=== PATIENT | female | born 1965 | race American Indian/Alaskan Native ===

== ENCOUNTER 2016-10-30 21:20 | Inpatient (IN) | payer MEDICARE ==
[2016-10-30 23:27] LABS: Basophils % (Auto) 0.3 % (0.0-1.8); Hematocrit 32.6 % (30.3-42.9); Hemoglobin 10.2 gm/dl (10.1-14.3); Mean Corpuscular HGB Conc 31 % (30-34); Mean Corpuscular Volume 78 fl (79-97); Platelet Count 331 K/mm3 (140-440); Red Blood Count 4.18 M/mm3 (3.65-5.03); Red Cell Distribution Width 17.1 % (13.2-15.2); White Blood Count 10.4 K/mm3 (4.5-11.0)
[2016-10-30 23:34] LABS: Mean Corpuscular Hemoglobin 25 pg (28-32)
[2016-10-30 23:36] LABS: INR 1.09 (0.87-1.13)
[2016-10-30 23:37] LABS: Partial Thromboplastin Time 24.7 Sec. (24.2-36.6)
[2016-10-30 23:50] LABS: BUN/Creatinine Ratio 21.66; Blood Urea Nitrogen 13 mg/dL (7-17); Calcium 9.3 mg/dL (8.4-10.2); Carbon Dioxide 22 mmol/L (22-30); Glucose 197 mg/dL (65-100)
[2016-10-30 23:51] LABS: Anion Gap 21 mmol/L; Chloride 102.7 mmol/L (98-107); Potassium 3.7 mmol/L (3.6-5.0); Sodium 142 mmol/L (137-145)
[2016-10-31] MEDS ORDERED: CATAPRES PO ONE (05:16)
[2016-10-31] MEDS ORDERED: MORPHINE IV ONE (08:38)
[2016-10-31] MEDS ORDERED: ZOFRAN IV ONE (08:38)
[2016-10-31] MEDS ORDERED: NITRO-BID 2% TP ONE (08:38)
[2016-10-31] MEDS ORDERED: ASPIRIN PO ONE (08:38)
--- NOTE | 2016-10-31 08:39 | Emergency Department Report ---
HPI - General Chief Complaint: Chest Pain Time Seen by Provider: 10/31/16 08:26 - HPI HPI: Room 1 The patient is a 51-year-old female presenting with a chief complaint of chest pain. The patient states for the past 7 days she has felt fatigued. Yesterday while walking she had increased fatigue within developed substernal chest pain that radiated to her neck and left upper extremity. Patient described pain as a pressure and "indigestion" like in nature. The patient admits to shortness of breath but denies nausea/vomiting or diaphoresis. Patient states she has had bilateral motions edema for 1 day. The patient [employer] stress test 2 years ago but does not aware of the results. Patient states she's never had a cardiac catheterization Location: Chest Duration: Constant since yesterday Quality: Pressure Severity:510 Modifying factors: [see above] Context: [see above] Mode of transportation: [not driving] ED Past Medical Hx - Past Medical History Previous Medical History?: Yes Hx Hypertension: Yes (2004 DR BEKAH PERKINS/PCP;on lisinopril, atenolol , clonidine) Hx Diabetes: Yes (IDDM 2004) Hx GERD: Yes (2010) Hx Arthritis: Yes (rheumatoid) Hx Headaches / Migraines: Yes Additional medical history: lupus, compressed disc, hypothyroidism - Surgical History Past Surgical History?: Yes Additional Surgical History: ectopic , D&C x 3. - Family History Family history: no significant - Social History Smoking Status: Former Smoker (none 23 years) Substance Use Type: None (denies illicit drug use), Alcohol (occasional) - Medications Home Medications: Home Medications Medication Instructions Recorded Confirmed Last Taken Type Atenolol [Tenormin] 25 mg PO BID 04/07/14 10/31/16 09/22/15 History Insulin Aspart Prot/Aspart 30 units SQ QAM 04/07/14 10/31/16 09/23/15 History [NovoLOG Mix 70/30 VIAL] Lisinopril [Zestril] 40 mg PO DAILY 04/07/14 10/31/16 09/20/15 History Oxybutynin [Ditropan] 5 mg PO BID 08/21/14 10/31/16 11/28/14 History Folic Acid 1 mg PO QDAY 11/18/14 10/31/16 09/22/15 History Insulin Aspart Protam & Aspart 20 unit SQ QPM 11/18/14 10/31/16 09/23/15 History [NovoLOG Mix 70-30 Flexpen] Prednisone 10 mg PO BID 11/18/14 09/24/15 09/22/15 History Vit D3/Folic Acid/B2/B6/B12 1 tab PO 1XW 09/24/15 10/31/16 10/28/16 History [Folgard Tablet] Hydralazine HCl [Apresoline TAB] 25 mg PO BID 10/31/16 10/31/16 Unknown History ED Review of Systems ROS: Stated complaint: CP/SOB Other details as noted in HPI Comment: All other systems reviewed and negative Constitutional: malaise. denies: diaphoresis Eyes: vision change. denies: eye pain, eye discharge ENT: denies: ear pain, throat pain Respiratory: shortness of breath Cardiovascular: chest pain Endocrine: no symptoms reported Gastrointestinal: denies: abdominal pain, nausea, diarrhea Genitourinary: denies: urgency, dysuria, discharge Musculoskeletal: denies: back pain, joint swelling, arthralgia Skin: denies: rash, lesions Neurological: denies: headache, weakness, paresthesias Psychiatric: denies: anxiety, depression Hematological/Lymphatic: denies: easy bleeding, easy bruising Physical Exam - Physical Exam Vital Signs: Vital Signs 10/30/16 10/30/16 10/31/16 21:37 23:38 03:15 Temperature 98.1 F Pulse Rate 97 H 73 86 Respiratory 18 16 20 Rate Blood Pressure Blood Pressure 200/116 196/99 210/93 [Left] O2 Sat by Pulse 98 100 98 Oximetry 10/31/16 10/31/16 10/31/16 04:17 05:06 05:28 Temperature 98.0 F Pulse Rate 101 H 78 79 Respiratory 20 18 20 Rate Blood Pressure Blood Pressure 152/96 212/128 212/128 [Left] O2 Sat by Pulse 99 100 100 Oximetry 10/31/16 10/31/16 10/31/16 05:29 07:53 08:00 Temperature Pulse Rate 72 Respiratory 16 Rate Blood Pressure 212/128 152/76 140/70 Blood Pressure [Left] O2 Sat by Pulse 100 Oximetry Physical Exam: GENERAL: The patient is well-developed well-nourished female lying on stretcher not appearing to be in acute distress. [] HEENT: Normocephalic. Atraumatic. Extraocular motions are intact. Patient has moist mucous membranes. NECK: Supple. Trachea midline CHEST/LUNGS: Clear to auscultation. There is no respiratory distress noted. Soft tissue nodules palpated the periphery of the left breast at approximately 10 o'clock position. No fluctuance or overlying skin changes seen HEART/CARDIOVASCULAR: Regular. There is no tachycardia. There is no gallop rub or murmur. ABDOMEN: Abdomen is soft, nontender. Patient has normal bowel sounds. There is no abdominal distention. SKIN: There is no rash. There is no edema. There is no diaphoresis. NEURO: The patient is awake, alert, and oriented. The patient is cooperative. The patient has normal speech MUSCULOSKELETAL: There is no evidence of acute injury. ED Course Vital Signs 10/30/16 10/30/16 10/31/16 21:37 23:38 03:15 Temperature 98.1 F Pulse Rate 97 H 73 86 Respiratory 18 16 20 Rate Blood Pressure Blood Pressure 200/116 196/99 210/93 [Left] O2 Sat by Pulse 98 100 98 Oximetry 10/31/16 10/31/16 10/31/16 04:17 05:06 05:28 Temperature 98.0 F Pulse Rate 101 H 78 79 Respiratory 20 18 20 Rate Blood Pressure Blood Pressure 152/96 212/128 212/128 [Left] O2 Sat by Pulse 99 100 100 Oximetry 10/31/16 10/31/16 10/31/16 05:29 07:53 08:00 Temperature Pulse Rate 72 Respiratory 16 Rate Blood Pressure 212/128 152/76 140/70 Blood Pressure [Left] O2 Sat by Pulse 100 Oximetry ED Medical Decision Making - Lab Data Result diagrams: 10/30/16 22:53 10/30/16 22:53 Laboratory Tests 10/30/16 10/30/16 10/30/16 22:53 22:53 22:53 WBC 10.4 RBC 4.18 Hgb 10.2 Hct 32.6 MCV 78 L MCH 25 L MCHC 31 RDW 17.1 H Plt Count 331 Lymph % (Auto) 31.5 [place] % (Auto) 8.7 H Eos % (Auto) 2.0 Baso % (Auto) 0.3 Lymph # 3.3 [place] # 0.9 H Eos # 0.2 Baso # 0.0 Seg Neutrophils % 57.5 Seg Neutrophils # 6.0 PT 14.0 INR 1.09 APTT 24.7 Sodium 142 Potassium 3.7 Chloride 102.7 Carbon Dioxide 22 Anion Gap 21 BUN 13 Creatinine 0.6 L Estimated GFR > 60 BUN/Creatinine Ratio 21.66 Glucose 197 H Calcium 9.3 Troponin T < 0.010 10/31/16 10/31/16 01:38 05:51 WBC RBC Hgb Hct MCV MCH MCHC RDW Plt Count Lymph % (Auto) [place] % (Auto) Eos % (Auto) Baso % (Auto) Lymph # [place] # Eos # Baso # Seg Neutrophils % Seg Neutrophils # PT INR APTT Sodium Potassium Chloride Carbon Dioxide Anion Gap BUN Creatinine Estimated GFR BUN/Creatinine Ratio Glucose Calcium Troponin T < 0.010 < 0.010 - EKG Data -: EKG Interpreted by Me EKG shows normal: sinus rhythm Rate: normal - EKG Data When compared to previous EKG there are: no significant change Interpretation: unchanged when compared t (08/21/2014) - Radiology Data Radiology results: image reviewed (chest x-ray) interpreted by me: Chest x-ray-no focal infiltrates, no pneumothorax - Differential Diagnosis ACS, GERD, pericarditis Critical care attestation.: If time is entered above; I have spent that time in minutes in the direct care of this critically ill patient, excluding procedure time. ED Disposition Clinical Impression: Chest pain, SLE (systemic lupus erythematosus) Disposition: OP ADMITTED IP TO THIS HOSP Is pt being admited?: Yes Does the pt Need Aspirin: Yes Condition: Fair Instructions: Chest Pain (ED) Referrals: JUAN F RUSH MD [Primary Care Provider] - 3-5 Days Forms: Accompanied Note Time of Disposition: 08:39 (hospitalist paged)
--- NOTE | 2016-10-31 08:55 | XRay Report ---
AP CHEST: HISTORY: chest pain AP view of the chest demonstrates a normal mediastinal and cardiac contour with clear lungs and normal bony and soft tissue structures. IMPRESSION: Unremarkable AP chest.
--- NOTE | 2016-10-31 09:30 | Admit Criteria Form ---
Admission Criteria Documentation: CHEST PAIN Clinical Indications for Admission to Inpatient Care (Place 'X' for any and all applicable criteria): Admission is indicated for chest pain and ANY ONE of the following(1)(2)(3)(4)(5 ): [ ]I. Angina with acute coronary syndrome (Also use Myocardial Infarction or Angina guideline) [ ]II. Hemodynamic instability [X]III. Angina needing acute intervention as indicated by ALL of the following( 11)(12): [X]a) Unstable angina is present as indicated by angina that is ANY ONE of the following: [ ]i) New onset [ ]ii) Nocturnal [ ]iii) Prolonged at rest [X]iv) Progressive [X]b) Angina warrants acute intervention as indicated by ANY ONE of the following: [ ]i) Recurrent angina (e.g, not responding as previously to treatment) [ ]ii) Angina at rest or with low-level activities despite initial medical therapy [ ]iii) New or presumably new ST-segment depression on ECG [ ]iv) Signs or symptoms of heart failure (eg, dyspnea, pulmonary edema) [ ]v) New or worsening mitral regurgitation [ ]vi) Hemodynamic instability [ ]vii) Dangerous arrhythmia (eg, sustained ventricular tachycardia) [ ]viii) History of percutaneous coronary intervention within 6 months [ ]ix) History of coronary artery bypass graft surgery [ ]x) ALISON risk score of 2 or greater[A] [X]xi) History of Diabetes(14) [ ]xii) High-risk cardiac ischemia findings on noninvasive testing (e.g, echocardiogram, treadmill testing, nuclear scan) [ ]xiii) Chronic renal insufficiency (ie, estimated GFR less than 60 mL/min/1.732m) [ ]xiv) Left ventricular ejection fraction less than 40% [ ]IV. Evidence of WA (eg, cardiac biomarkers positive, ST-segment elevation on ECG) also use Myocardial Infarction Criteria Form. [ ]V. Pulmonary edema [ ]. Respiratory distress [ ]VII. Chest pain indicative of serious diagnosis other than coronary artery disease (eg, aortic dissection) [ ]VIII. Contraindications and/or Inappropriate clinical situations for Observational Care in patients with Chest Pain, when ANY ONE of the following is required: [ ]a) Patient with risk factor for pulmonary embolism, acute coronary syndrome and myocardial infarction (18) [ ]b) Patient with Pulmonary embolism require an average LOS of 4.3 days, therefore emergency department observation management is inappropriate 18,23 [ ]c) Painful condition/s in the elderly, have the highest rate of recidivism after emergency department observation management (10.8%) 20,21,22 [ ]d) Elevated cardiac biomarker requires intensive and exhaustive care (19) [ ]IX. General contraindications and/or Inappropriate clinical situations for Observational Care in patients with Chest Pain, when ANY ONE of the following is required: [ ]a) Prediction of prolongation of LOS based on ANY ONE of the following may be considered as a contraindication for observational care 2, 3, 4, 5, 6, 7, 8, 9, 10, 11 [ ]i) Age > 65 yrs. [ ]ii) Patient arriving by ambulance [ ]iii) Patient with high acuity [ ]iv) Patient requiring vital sign monitoring [ ]v) Patient on IV medication [ ]b) Systolic blood pressures 180mmHg 3,12 [ ]c) Patient with altered mental status including delirium and other alteration of consciousness, (3) [ ]d) Patient whose discharge disposition will be to a care home home or rehabilitation home should not be managed in Emergency Department Observation Unit. CMS rule requires 3 days hospital stay before such placement. 3,13 [ ]e) Patient with failure to thrive due to broad array of etiologies 3,16,17 [ ]f) Inability to ambulate 3,14 Extended stay beyond goal length of stay may be needed for (1)(28): [ ]a) Specific condition diagnosed after evaluation (eg, pulmonary embolism, aortic dissection) [ ]b) Unstable angina [ ]c) Continued suspicion of acute coronary syndrome with inability to complete needed cardiac evaluation (eg, patient clinically unable to undergo stress testing) [ ]d) Myocardial infarction (Contents from ANGINA and CHEST PAIN clinical indications for admission to inpatient care have been integrated in this form) The original [employer] content created by [employer] has been revised. The portions of the content which have been revised are identified through the use of italic text or in bold, and [employer] has neither reviewed nor approved the modified material. All other unmodified content is copyright [employer]. Please see references footnoted in the original [employer] edition 2016
[2016-10-31] MEDS ORDERED: TYLENOL PO PRN ×2 (11:03→14:06)
[2016-10-31] MEDS ORDERED: ZOFRAN IV PRN (11:04)
[2016-10-31] MEDS ORDERED: TYLENOL ONE (11:06)
[2016-10-31] MEDS ORDERED: ZOFRAN ONE (11:06)
[2016-10-31] MEDS ORDERED: B12 PO SCH (11:30)
[2016-10-31] MEDS ORDERED: FOLIC ACID PO SCH (11:30)
[2016-10-31] MEDS ORDERED: B2 PO SCH (11:30)
[2016-10-31] MEDS ORDERED: NON-FORMULARY (Hydralazine Hcl [Apresoline Tab] 25 MG) PO SCH (11:30)
[2016-10-31] MEDS ORDERED: VIT D3 PO SCH (11:30)
[2016-10-31] MEDS ORDERED: NON-FORMULARY (Folic Acid [Folic Acid] 1 MG) PO SCH (11:30)
[2016-10-31] MEDS ORDERED: B6 PO SCH (11:30)
[2016-10-31] MEDS: FOLVITE PO SCH (12:46)
[2016-10-31] MEDS: DITROPAN PO SCH ×2 (12:46→23:03)
[2016-10-31] MEDS: DELTASONE PO SCH ×2 (12:46→23:02)
[2016-10-31] MEDS: TENORMIN PO SCH ×2 (12:47→23:01)
[2016-10-31] MEDS: ZESTRIL PO SCH (12:47)
[2016-10-31] MEDS ORDERED: SODIUM CHLORIDE FLUSH SYRINGE 10 ML IV PRN (14:05)
[2016-10-31] MEDS ORDERED: DULCOLAX PR PRN (14:06)
[2016-10-31] MEDS ORDERED: PERCOCET 5/325 PO PRN (14:06)
[2016-10-31] MEDS ORDERED: MILK OF MAGNESIA PO PRN (14:06)
[2016-10-31] MEDS ORDERED: D5NS 1,000 ML IV SCH (15:00)
[2016-10-31 15:48] LABS: Creatine Kinase 26 units/L (30-135)
[2016-10-31 15:50] LABS: Creatine Kinase MB < 1.0 ng/mL (0.0-4.0)
[2016-10-31] MEDS: NOVOLOG SUB-Q SCH ×2 (16:59→23:04)
[2016-10-31] MEDS ORDERED: ASPART SQ SCH (18:00)
[2016-10-31] MEDS ORDERED: INSULIN ASPART PROTAM SQ SCH (18:00)
[2016-10-31 20:59] LABS: Creatine Kinase 26 units/L (30-135)
[2016-10-31 21:11] LABS: Creatine Kinase MB < 1.0 ng/mL (0.0-4.0)
[2016-10-31] MEDS: APRESOLINE PO SCH (23:03)
--- NOTE | 2016-10-31 23:18 | Event Note ---
Date: 10/31/16 Chest pain Lupus HTN IDDM
--- NOTE | 2016-11-01 02:16 | History and Physical Report ---
CHIEF COMPLAINT: Left-sided chest pain for the past 7 days. HISTORY OF PRESENT ILLNESS: A 51-year-old -[place] female presenting with intermittent chest pain for the past 7 days, more so for the last 1 day, has been feeling fatigued for the last 1 week. Since yesterday felt substernal chest pressure radiating to the neck and in the left upper extremity. The patient described the pain as a pressure in nature. Admits to shortness of breath, but denies any nausea, vomiting, or diaphoresis. Also, the patient apparently has a stress test 2 years ago, but is unaware of the test results. She never had a cardiac catheterization. Pain is about 8 on a scale of 1-10. PAST MEDICAL HISTORY: Significant for hypertension, insulin-dependent diabetes mellitus, gastroesophageal reflux disease, rheumatoid arthritis/lupus, compressed disk, and hypothyroidism. PAST SURGICAL HISTORY: Ectopic , D and C FAMILY HISTORY: Hypertension. SOCIAL HISTORY: Former smoker. Did not smoke for 7 years. CURRENT MEDICATIONS: Insulin 70/30 30 units in the morning and 20 units in the evening, lisinopril 40 mg once a day, Diltiazem , Tenormin 25 mg twice a day, lisinopril 40 mg once a day, folic acid 1 mg once a day, prednisone 10 mg twice a day, multivitamin tablet 1 tablet daily, hydralazine 25 mg twice a day. REVIEW OF SYSTEMS: CONSTITUTIONAL: No sore throat, no postnasal drip. No weight loss. HEENT: Unremarkable. No sore throat. NECK: No neck stiffness. CARDIOVASCULAR AND RESPIRATORY: No shortness of breath. Chest pain down in the left side with radiation to the left arm present. No diaphoresis. No palpitations. GASTROINTESTINAL: No nausea, no vomiting, no diarrhea. MUSCULOSKELETAL: No joint pains. CENTRAL NERVOUS SYSTEM: No syncope, no seizures. SKIN: No rashes. PSYCHIATRIC: Denies anxiety or depression. HEMATOLOGIC AND LYMPHATIC: No easy bruising. No easy bleeding. No lymphadenopathy. A 14-point review of systems done, essentially negative. PHYSICAL EXAMINATION: GENERAL: Middle-aged female, cooperative during examination. VITAL SIGNS: Blood pressure 98.1, pulse is 97, respirations are 18, blood pressure is about 200/116, repeat is 152/96. HEENT: Unremarkable. Pupils equal and reactive. NECK: Supple, no lymphadenopathy, no thyromegaly. LUNGS: Clear to auscultation and percussion. Good air entry. CARDIOVASCULAR: S1, S2 heard. No gallop, no murmur, no rub. Apical impulse in left fifth intercostal space and midclavicular line. ABDOMEN: Soft and benign. No hepatosplenomegaly. No guarding, no rigidity. Hernial orifices are normal. EXTREMITIES: Good pedal pulses. No pedal edema. CENTRAL NERVOUS SYSTEM: Alert and oriented x 4. NEUROLOGIC: Nonfocal exam. SKIN: Normal. LABORATORY DATA AND DIAGNOSTIC STUDIES: EKG shows no significant changes, unchanged when compared to 08/21/2014, nonspecific ST-T wave changes. EKG, no focal infiltrates. No pneumothorax. Labs were significant for white count of 10,400, H and H is 10.2 and 32.6, platelet count is 331,000, monocytes 8.7%. Chemistry shows glucose of 217 and 226. There is no sodium or potassium, but on 10/13/2017 at 22:53, sodium of 142, potassium of 3.7, chloride of 102, BUN and creatinine of 11 and 0.5, glucose is 197. Chest x-ray normal. ASSESSMENT AND PLAN: 1. Chest pain, rule out myocardial infarction, chest pain protocol. Lexiscan in the morning. 2. Insulin-dependent diabetes. Continue insulin 30 units in the morning and 20 units in the evening. 3. Hypertension. Continue atenolol 25 mg twice a day, hydralazine 25 mg twice a day, lisinopril 40 mg once a day. 4. Urinary incontinence. Continue oxybutynin 5 mg p.o. b.i.d. 4. Rheumatoid arthritis/lupus. We will start the patient on prednisone 10 mg p.o. b.i.d., not clear why Plaquenil or methotrexate were not started. 5. Vitamin D deficiency. Continue vitamin D3. 6. Deep venous thrombosis prophylaxis, Lovenox 40 mg subcutaneous daily. JOB# [id number] VSM/NTS ANNE-MARIED
[2016-11-01 07:07] LABS: Basophils % (Auto) 0.3 % (0.0-1.8); Eosinophils % (Auto) 0.2 % (0.0-4.3); Hemoglobin 10.2 gm/dl (10.1-14.3); Mean Corpuscular HGB Conc 32 % (30-34); Mean Corpuscular Volume 78 fl (79-97); Platelet Count 324 K/mm3 (140-440); Red Blood Count 4.12 M/mm3 (3.65-5.03); Red Cell Distribution Width 17.1 % (13.2-15.2); White Blood Count 9.1 K/mm3 (4.5-11.0)
[2016-11-01 07:09] LABS: Mean Corpuscular Hemoglobin 25 pg (28-32)
[2016-11-01 07:38] LABS: Alanine Aminotransferase 18 units/L (7-56); Albumin 3.5 g/dL (3.9-5); Albumin/Globulin Ratio 0.9 %; Alkaline Phosphatase 74 units/L (35-129); Anion Gap 21 mmol/L; Bilirubin,Total 0.3 mg/dL (0.1-1.2); Blood Urea Nitrogen 11 mg/dL (7-17); Calcium 9.2 mg/dL (8.4-10.2); Carbon Dioxide 21 mmol/L (22-30); Glucose 230 mg/dL (65-100); Potassium 4.1 mmol/L (3.6-5.0); Sodium 143 mmol/L (137-145); Total Protein 7.4 g/dL (6.3-8.2)
[2016-11-01] MEDS ORDERED: LEXISCAN IV ONE ×2 (08:33→08:38)
[2016-11-01] MEDS ORDERED: NON-FORMULARY (Insulin Aspart Prot/Aspart 30 UNITS) SQ SCH (10:00)
[2016-11-01] MEDS: NOVOLOG SUB-Q SCH ×4 (10:01→22:46)
[2016-11-01] MEDS: APRESOLINE PO SCH ×2 (10:43→22:47)
[2016-11-01] MEDS: DITROPAN PO SCH ×2 (10:43→22:48)
[2016-11-01] MEDS: DELTASONE PO SCH ×2 (10:43→22:48)
[2016-11-01] MEDS: FOLVITE PO SCH (10:44)
[2016-11-01] MEDS: PLAQUENIL PO SCH (10:44)
[2016-11-01] MEDS: ZESTRIL PO SCH (10:45)
[2016-11-01] MEDS: TENORMIN PO SCH ×2 (10:45→22:47)
--- NOTE | 2016-11-01 20:36 | Progress Note ---
Hospitalist Physical - Constitutional Vitals: Temp Pulse Resp BP Pulse Ox 98.4 F 73 20 146/89 96 11/01/16 16:30 11/01/16 16:30 11/01/16 16:30 11/01/16 16:30 11/01/16 16:30 Results - Labs CBC & Chem 7: 11/01/16 06:23 11/01/16 06:23 Labs: Laboratory Last Values WBC 9.1 K/mm3 (4.5-11.0) 11/01/16 06:23 RBC 4.12 M/mm3 (3.65-5.03) 11/01/16 06:23 Hgb 10.2 gm/dl (10.1-14.3) 11/01/16 06:23 Hct 32.0 % (30.3-42.9) 11/01/16 06:23 MCV 78 fl (79-97) L 11/01/16 06:23 MCH 25 pg (28-32) L 11/01/16 06:23 MCHC 32 % (30-34) 11/01/16 06:23 RDW 17.1 % (13.2-15.2) H 11/01/16 06:23 Plt Count 324 K/mm3 (140-440) 11/01/16 06:23 Lymph % (Auto) 18.0 % (13.4-35.0) 11/01/16 06:23 [place] % (Auto) 4.2 % (0.0-7.3) 11/01/16 06:23 Eos % (Auto) 0.2 % (0.0-4.3) 11/01/16 06:23 Baso % (Auto) 0.3 % (0.0-1.8) 11/01/16 06:23 Lymph # 1.6 K/mm3 (1.2-5.4) 11/01/16 06:23 [place] # 0.4 K/mm3 (0.0-0.8) 11/01/16 06:23 Eos # 0.0 K/mm3 (0.0-0.4) 11/01/16 06:23 Baso # 0.0 K/mm3 (0.0-0.1) 11/01/16 06:23 Seg Neutrophils % 77.3 % (40.0-70.0) H 11/01/16 06:23 Seg Neutrophils # 7.0 K/mm3 (1.8-7.7) 11/01/16 06:23 PT 14.0 Sec. (12.2-14.9) 10/30/16 22:53 INR 1.09 (0.87-1.13) 10/30/16 22:53 APTT 24.7 Sec. (24.2-36.6) 10/30/16 22:53 Sodium 143 mmol/L (137-145) 11/01/16 06:23 Potassium 4.1 mmol/L (3.6-5.0) 11/01/16 06:23 Chloride 105.0 mmol/L (98-107) 11/01/16 06:23 Carbon Dioxide 21 mmol/L (22-30) L 11/01/16 06:23 Anion Gap 21 mmol/L 11/01/16 06:23 BUN 11 mg/dL (7-17) 11/01/16 06:23 Creatinine 0.5 mg/dL (0.7-1.2) L 11/01/16 06:23 Estimated GFR > 60 ml/min 11/01/16 06:23 BUN/Creatinine Ratio 22.00 % 11/01/16 06:23 Glucose 230 mg/dL (65-100) H 11/01/16 06:23 POC Glucose 278 (70-105) H 10/31/16 21:08 Calcium 9.2 mg/dL (8.4-10.2) 11/01/16 06:23 Total Bilirubin 0.3 mg/dL (0.1-1.2) 11/01/16 06:23 AST 12 units/L (5-40) 11/01/16 06:23 ALT 18 units/L (7-56) 11/01/16 06:23 Alkaline Phosphatase 74 units/L (35-129) 11/01/16 06:23 Total Creatine Kinase 26 units/L (30-135) L 10/31/16 19:40 CK-MB (CK-2) < 1.0 ng/mL (0.0-4.0) 10/31/16 19:40 CK-MB (CK-2) Rel Index 3.8 (0-4) 10/31/16 19:40 Troponin T < 0.010 ng/mL (0.00-0.029) 10/31/16 19:40 NT-Pro-B Natriuret Pep 134.4 pg/mL (0-900) 10/31/16 05:51 Total Protein 7.4 g/dL (6.3-8.2) 11/01/16 06:23 Albumin 3.5 g/dL (3.9-5) L 11/01/16 06:23 Albumin/Globulin Ratio 0.9 % 11/01/16 06:23
--- NOTE | 2016-11-02 01:14 | Treadmill Report ---
ORDERING PHYSICIAN: Dr. Cecily Torres. INDICATION: Chest pain. FINDINGS: There is no scintigraphic evidence of myocardial ischemia. The left ventricle is normal in size and systolic function and left ventricular ejection fraction is measured at 66%. Normal wall motion and wall thickening is noted on gated imaging. CONCLUSION: Normal perfusion scan. JOB# [id number] PAM/JEFF
[2016-11-02] MEDS: ZESTRIL PO SCH ×2 (08:26→10:16)
[2016-11-02] MEDS: TENORMIN PO SCH ×2 (08:26→10:15)
[2016-11-02] MEDS: APRESOLINE PO SCH ×2 (08:26→10:15)
[2016-11-02] MEDS: NOVOLOG SUB-Q SCH (09:54)
[2016-11-02] MEDS: FOLVITE PO SCH (09:54)
[2016-11-02] MEDS: DITROPAN PO SCH (09:54)
[2016-11-02] MEDS: DELTASONE PO SCH (09:54)
[2016-11-02] MEDS: PLAQUENIL PO SCH (09:54)
[2016-11-02 12:30] VITALS: BP 145/87
--- NOTE | 2016-11-02 13:12 | Discharge Summary ---
Providers - Providers Date of Admission: 10/31/16 08:42 Date of discharge: 11/02/16 Attending physician: FABIOLA JAUREGUI 10/31/16 Consult to Cardiac Rehabilitation [CONS] Routine Reason For Exam: Phase I Primary care physician: JUAN F RUSH Hospitalization Condition: Stable Disposition: DISCHARGED TO HOME OR SELFCARE Time spent for discharge: 35 min Core Measure Documentation - Palliative Care Palliative Care/ Comfort Measures: Not Applicable - Core Measures Any of the following diagnoses?: none Exam - Constitutional Vitals: Temp Pulse Resp BP Pulse Ox 98.7 F 72 18 145/87 95 11/02/16 12:30 11/02/16 12:30 11/02/16 12:30 11/02/16 12:30 11/02/16 12:30 Plan Activity: advance as tolerated Diet: low cholesterol, low salt Additional Instructions: 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 as already scheduled Follow up with: JUAN F RUSH MD [Primary Care Provider] - 3-5 Days Forms: Accompanied Note Prescriptions: hydrALAZINE [Apresoline TAB] 25 mg PO BID #60 tablet predniSONE [Deltasone] 10 mg PO QDAY #30 tablet Oxybutynin [Ditropan] 5 mg PO BID #60 tablet Folic Acid 1 mg PO QDAY #30 capsule Insulin Aspart Protam & Aspart [NovoLOG Mix 70-30 Flexpen] 20 unit SQ QPM #1 insuln.pen Insulin Aspart Prot/Aspart [NovoLOG Mix 70/30 VIAL] 30 units SQ QAM #1 units oxyCODONE /ACETAMINOPHEN [Percocet 5/325 mg] 1 tab PO Q6H PRN #10 tablet PRN Reason: Pain, Moderate (4-6) Atenolol [Tenormin] 25 mg PO BID #60 tablet Lisinopril [Zestril TAB] 40 mg PO DAILY #30 tablet
--- NOTE | 2016-11-05 10:09 | Query- Chest Pain ---
Xiomy Carpenter Date:_11/05/16 Government Service Executive/PHYLLIS:Jn/Francisco Javier Lobato Phone#:[phone] Exercise your independent professional judgment when responding to query. Questions asked do not imply a particular answer is desired or expected. We greatly appreciate your clarification on this issue. Clinical Documentation States: 51 Y/O Female admitted on 10/31/16 with history of HTN, DM, GERd, Arthritis presents with intermittant chest pain for the last 7 days, more so for the last day. Pain is substernal, pressure like, radiating to the neck and left arm. Shortness of breath Clinical Findings Show: EKG:Normal sinus rhythm ECHO: Normal perfusion scan Imaging:Unremarkable AP Chest EF: 68% Please document the etiology of Chest Pain: [ ] Myocardial Infarction [ ] Pneumonia [ ] Mediastinitis [ ] Costochondritis [ ] Pulmonary Embolism [ ] Coronary Artery Disease [x ] GERD [ ] Other: [ ] Comment/Explanation: Present on Admission: [x ] Yes (Y) [ ] Clinically undeterminable (W) [ ] No(N) Please document response in your Progress Notes and/or Discharge Summary and indicate if the condition was present on admission. JEWELL
== END 2016-11-02 15:01 | disposition home health service (06) | DRG 392 ==
LOC: ED 21:20 → 4A 10-31 08:42
PROVIDERS: ADMIT Internal Medicine; ATTEND Internal Medicine
DX: K21.9 Gastro-esophageal reflux disease without esophagitis (principal); E11.8 Type 2 diabetes mellitus with unspecified complications; I10 Essential (primary) hypertension; M32.9 Systemic lupus erythematosus, unspecified; E55.9 Vitamin D deficiency, unspecified; M06.9 Rheumatoid arthritis, unspecified; E03.9 Hypothyroidism, unspecified; Z82.49 Family history of ischemic heart disease and other diseases of the circulatory system; Z79.4 Long term (current) use of insulin
CPT/HCPCS: 36415; 71010; 78452; 80048; 80053; 82550; 82553; 82962; 83880; 84484; 85025; 85610; 85730; 93005; 93010; 93017; 96374; 96375; 96376; A9502; J1815; J2270; J2405; J2785; J7512

== ENCOUNTER 2017-07-07 16:42 | Emergency (ER) | payer MEDICARE ==
[2017-07-07] MEDS ORDERED: NORCO 5/325 PO ONE (17:30)
--- NOTE | 2017-07-07 17:37 | Emergency Department Report ---
Chief Complaint: Skin/Abscess/Foreign Body Stated Complaint: BACK PAIN - HPI History of Present Illness: 52-year-old female past medical history peripheral vascular disease, nonhealing ulcer left leg presents with complaint of left leg pain and redness and lower back pain, complaining of oozing from left leg on anterior willis - ROS Review of Systems: Chronic left leg wound - Exam Vital Signs: Vital Signs 07/07/17 17:14 Temperature 98.3 F Pulse Rate 109 H Respiratory 18 Rate Blood Pressure 145/87 O2 Sat by Pulse 97 Oximetry Physical Exam: Heart S1-S2, visible 2 cm open wound. Wound drainage and surrounding cellulitis left anterior willis MSE screening note: Focused history and physical exam performed. Due to findings the following was ordered: Screening Assessment/Plan/Differential Dx: Left leg wound, left leg cellulitis,/ lower back pain, sciatica 1- This initial assessment/diagnostic orders/clinical plan/ treatment(s) is/are subject to change based on pt's health status, clinical progression and re- assessment by fellow clinical providers in the ED. Further treatment and workup at subsequent clinical provers discretion. Patient/guardians urged not to elope from ED as their condition may be serious if not clinically assessed and managed. 2-ESR, CRP,, CBC, BMP x-rays left leg and lower back ED Disposition for MSE Condition: Stable
[2017-07-07 18:12] LABS: Basophils % (Auto) 0.7 % (0.0-1.8); Eosinophils % (Auto) 2.3 % (0.0-4.3); Hematocrit 30.7 % (30.3-42.9); Hemoglobin 9.7 gm/dl (10.1-14.3); Mean Corpuscular HGB Conc 32 % (30-34); Mean Corpuscular Hemoglobin 27 pg (28-32); Mean Corpuscular Volume 86 fl (79-97); Platelet Count 312 K/mm3 (140-440); Red Blood Count 3.59 M/mm3 (3.65-5.03); Red Cell Distribution Width 15.2 % (13.2-15.2)
[2017-07-07 18:23] LABS: Anion Gap 18 mmol/L; BUN/Creatinine Ratio 25.71; Blood Urea Nitrogen 18 mg/dL (7-17); Calcium 9.4 mg/dL (8.4-10.2); Carbon Dioxide 21 mmol/L (22-30); Chloride 102.7 mmol/L (98-107); Glucose 162 mg/dL (65-100); Potassium 3.9 mmol/L (3.6-5.0); Sodium 138 mmol/L (137-145)
[2017-07-07 18:48] LABS: Erythrocyte Sedimentation Rate 117 mm/Hr (0-20)
[2017-07-08] MEDS ORDERED: MOTRIN PO ONE (03:09)
[2017-07-08] MEDS ORDERED: DILAUDID IM ONE (04:02)
--- NOTE | 2017-07-08 04:07 | Emergency Department Report ---
ED General Adult HPI - General Chief complaint: Skin/Abscess/Foreign Body Stated complaint: BACK PAIN Time Seen by Provider: 07/08/17 03:45 Source: patient, RN notes reviewed, old records reviewed Mode of arrival: Wheelchair Limitations: No Limitations - History of Present Illness Initial comments: This is a 52-year-old female who is previously unknown to this provider. Has a past medical history of lumbar radiculopathy, diabetes, obesity. Patient has a known history of chronic back pain, lumbar radiculopathy, with documented in pairs strength, balance, range of motion, activity tolerance, safety awareness. financial reporting specialist is Dr. Denney Patient presents to the ER with 2 complaints. Her first complaint is right paralumbar back pain that radiates down the right lower extremity. This has been going on for weeks to months to years. The pain is sharp, and increases with range of motion and decreases with rest. There is no bladder or bowel retention or incontinence. There is no saddle anesthesia, patient denies IV drug abuse, patient indicates she started physical therapy with the aforementioned physician, and she thinks that it is making her pain worse. Her next complaint is a chronic ulcer to the left anterior willis. There is minimal black discoloration around it. No fevers, chills, discharge. -: Gradual Location: back, left, lower extremity Radiation: extremity Severity scale (0 -10): 10 Quality: burning, aching Consistency: intermittent Improves with: rest Worsens with: movement Associated Symptoms: denies: confusion, chest pain, cough, diaphoresis, headaches, loss of appetite, malaise, nausea/vomiting, rash, shortness of breath , syncope - Related Data Home Medications Medication Instructions Recorded Confirmed Last Taken Vit D3/Folic Acid/B2/B6/B12 1 tab PO 1XW 09/24/15 10/31/16 10/28/16 [Folgard Tablet] Previous Rx's Medication Instructions Recorded Last Taken Type Atenolol [Tenormin] 25 mg PO BID #60 tablet 11/02/16 Unknown Rx Folic Acid 1 mg PO QDAY #30 capsule 11/02/16 Unknown Rx Insulin Aspart Prot/Aspart(Nf) 30 units SQ QAM #1 units 11/02/16 Unknown Rx [NovoLOG Mix 70/30 VIAL] Insulin Aspart Protam & Aspart 20 unit SQ QPM #1 insuln.pen 11/02/16 Unknown Rx [NovoLOG Mix 70-30 Flexpen] Lisinopril [Zestril TAB] 40 mg PO DAILY #30 tablet 11/02/16 Unknown Rx Oxybutynin [Ditropan] 5 mg PO BID #60 tablet 11/02/16 Unknown Rx hydrALAZINE [Apresoline TAB] 25 mg PO BID #60 tablet 11/02/16 Unknown Rx oxyCODONE /ACETAMINOPHEN [Percocet 1 tab PO Q6H PRN #10 tablet 11/02/16 Unknown Rx 5/325 mg] predniSONE [Deltasone] 10 mg PO QDAY #30 tablet 11/02/16 Unknown Rx Acetaminophen [Tylenol Arthritis] 650 mg PO Q6HR PRN #30 tablet.er 07/08/17 Unknown Rx Ibuprofen [Motrin] 600 mg PO Q8H PRN #30 tablet 07/08/17 Unknown Rx Mupirocin [Bactroban 2%] 1 applic TP BID #1 tube 07/08/17 Unknown Rx Allergies Allergy/AdvReac Type Severity Reaction Status Date / Time latex Allergy Rash Verified 04/07/14 07:52 Sulfa (Sulfonamide Allergy Unknown Verified 10/31/16 08:29 Antibiotics) Penicillins AdvReac Itching Verified 11/18/14 12:54 ED Review of Systems ROS: Stated complaint: BACK PAIN Other details as noted in HPI Constitutional: malaise. denies: fever Eyes: denies: vision change ENT: denies: hearing loss Respiratory: denies: cough Cardiovascular: denies: chest pain Gastrointestinal: denies: abdominal pain Genitourinary: denies: dysuria Musculoskeletal: back pain Skin: rash, lesions Neurological: paresthesias ED Past Medical Hx - Past Medical History Hx Hypertension: Yes Hx Heart Attack/AMI: No Hx Diabetes: Yes Hx GERD: Yes (2010) Hx Renal Disease: No Hx Arthritis: Yes Hx Headaches / Migraines: Yes Hx Asthma: Yes Additional medical history: lupus, compressed disc, hypothyroidism - Surgical History Hx Pacemaker: No Hx Internal Defibrillator: No Additional Surgical History: ectopic , D&C x 3. - Social History Smoking Status: Never Smoker Substance Use Type: None - Medications Home Medications: Home Medications Medication Instructions Recorded Confirmed Last Taken Type Vit D3/Folic Acid/B2/B6/B12 1 tab PO 1XW 09/24/15 10/31/16 10/28/16 History [Folgard Tablet] Atenolol [Tenormin] 25 mg PO BID #60 tablet 11/02/16 Unknown Rx Folic Acid 1 mg PO QDAY #30 capsule 11/02/16 Unknown Rx Insulin Aspart Prot/Aspart(Nf) 30 units SQ QAM #1 units 11/02/16 Unknown Rx [NovoLOG Mix 70/30 VIAL] Insulin Aspart Protam & Aspart 20 unit SQ QPM #1 insuln.pen 11/02/16 Unknown Rx [NovoLOG Mix 70-30 Flexpen] Lisinopril [Zestril TAB] 40 mg PO DAILY #30 tablet 11/02/16 Unknown Rx Oxybutynin [Ditropan] 5 mg PO BID #60 tablet 11/02/16 Unknown Rx hydrALAZINE [Apresoline TAB] 25 mg PO BID #60 tablet 11/02/16 Unknown Rx oxyCODONE /ACETAMINOPHEN [Percocet 1 tab PO Q6H PRN #10 tablet 11/02/16 Unknown Rx 5/325 mg] predniSONE [Deltasone] 10 mg PO QDAY #30 tablet 11/02/16 Unknown Rx Acetaminophen [Tylenol Arthritis] 650 mg PO Q6HR PRN #30 tablet.er 07/08/17 Unknown Rx Ibuprofen [Motrin] 600 mg PO Q8H PRN #30 tablet 07/08/17 Unknown Rx Mupirocin [Bactroban 2%] 1 applic TP BID #1 tube 07/08/17 Unknown Rx ED Physical Exam - General Limitations: No Limitations General appearance: alert, in no apparent distress - Head Head exam: Present: atraumatic, normocephalic - Eye Eye exam: Present: normal appearance, EOMI. Absent: nystagmus - ENT ENT exam: Present: normal exam, normal orophraynx, mucous membranes moist, normal external ear exam - Neck Neck exam: Present: normal inspection, full ROM. Absent: tenderness, meningismus - Respiratory Respiratory exam: Present: normal lung sounds bilaterally. Absent: respiratory distress, wheezes, rales, rhonchi, stridor, chest wall tenderness, accessory muscle use, decreased breath sounds, prolonged expiratory - Cardiovascular Cardiovascular Exam: Present: regular rate, normal rhythm, normal heart sounds. Absent: bradycardia, tachycardia, irregular rhythm, systolic murmur, diastolic murmur, rubs, gallop - GI/Abdominal GI/Abdominal exam: Present: soft, normal bowel sounds. Absent: distended, tenderness, guarding, rebound, rigid, pulsatile mass - Extremities Exam Extremities exam: Present: full ROM, normal capillary refill, other (on the left anterior tibial region, there is an area of 1 x 1 cm ulceration, with surrounding hyperpigmentation. There is no redness, pus, streaking, crepitus or discharge. The compartments are soft. 2+ pulses noted in 4 extremities.). Absent: pedal edema, joint swelling, calf tenderness - Back Exam Back exam: Present: normal inspection, full ROM, paraspinal tenderness - Neurological Exam Neurological exam: Present: alert, oriented X3, normal gait (walks with a slight limp), other (Extraocular movements intact. Tongue midline. No facial droop. Facial sensation intact to light touch in the V1, V2, V3 distribution bilaterally. 5 and 5 strength in 4 extremities.. Sensation is intact to light touch in 4 extremities.) - Psychiatric Psychiatric exam: Present: normal affect, normal mood - Skin Skin exam: Present: warm, dry, intact, normal color. Absent: rash ED Course Vital Signs 07/07/17 07/07/17 07/08/17 17:14 18:40 02:57 Temperature 98.3 F 98.2 F Pulse Rate 109 H 97 H Respiratory 18 16 16 Rate Blood Pressure 145/87 Blood Pressure 156/85 [Left] O2 Sat by Pulse 97 99 Oximetry 07/08/17 07/08/17 07/08/17 03:15 04:14 04:15 Temperature Pulse Rate Respiratory 16 16 16 Rate Blood Pressure Blood Pressure [Left] O2 Sat by Pulse Oximetry 07/08/17 05:00 Temperature Pulse Rate 99 H Respiratory 16 Rate Blood Pressure Blood Pressure 131/75 [Left] O2 Sat by Pulse 97 Oximetry - Reevaluation(s) Reevaluation #1: 07/08/17 04:33 Patient able to ambulate with minimal assistance, history and physical not suggestive of epidural compression syndrome. ED Medical Decision Making - Lab Data Result diagrams: 07/07/17 17:43 07/07/17 17:43 Vital Signs 07/07/17 07/08/17 07/08/17 17:14 02:57 03:15 Temperature 98.3 F 98.2 F Pulse Rate 109 H 97 H Respiratory 18 16 16 Rate Blood Pressure 145/87 Blood Pressure 156/85 [Left] O2 Sat by Pulse 97 99 Oximetry Lab Results 07/07/17 07/07/17 07/07/17 Range/Units 17:43 17:43 17:43 WBC 11.0 (4.5-11.0) K/mm3 RBC 3.59 L (3.65-5.03) M/mm3 Hgb 9.7 L (10.1-14.3) gm/dl Hct 30.7 (30.3-42.9) % MCV 86 (79-97) fl MCH 27 L (28-32) pg MCHC 32 (30-34) % RDW 15.2 (13.2-15.2) % Plt Count 312 (140-440) K/mm3 Lymph % (Auto) 22.5 (13.4-35.0) % [place] % (Auto) 9.0 H (0.0-7.3) % Eos % (Auto) 2.3 (0.0-4.3) % Baso % (Auto) 0.7 (0.0-1.8) % Lymph # 2.5 (1.2-5.4) K/mm3 [place] # 1.0 H (0.0-0.8) K/mm3 Eos # 0.3 (0.0-0.4) K/mm3 Baso # 0.1 (0.0-0.1) K/mm3 Seg Neutrophils % 65.5 (40.0-70.0) % Seg Neutrophils # 7.2 (1.8-7.7) K/mm3 ESR 117 (0-20) mm/Hr Sodium 138 (137-145) mmol/L Potassium 3.9 (3.6-5.0) mmol/L Chloride 102.7 (98-107) mmol/L Carbon Dioxide 21 L (22-30) mmol/L Anion Gap 18 mmol/L BUN 18 H (7-17) mg/dL Creatinine 0.7 (0.7-1.2) mg/dL Estimated GFR > 60 ml/min BUN/Creatinine Ratio 25.71 % Glucose 162 H (65-100) mg/dL Lactic Acid 0.80 (0.7-2.0) mmol/L Calcium 9.4 (8.4-10.2) mg/dL C-Reactive Protein 5.30 H (0.00-1.30) mg/dL - Medical Decision Making Differential diagnosis: Chronic radicular pain, diabetic ulcer Assessment and plan: 52-year-old female with acute on chronic radicular pain. Patient afebrile with reassuring vital signs, physical exam unremarkable, does not corroborate epidural compression syndrome. Left lotion of any ulcer appears chronic and not superinfected. Blood cultures were sent prior to my evaluation, I have no suspicion that the patient is bacteremic, we'll therefore discharge her. She is instructed as to importance of appropriate glycemic control, and she can follow-up with the outpatient wound care center. Patient is instructed that the natural history of radicular back pain is chronic , unrelenting, and difficult to control. Her pain was treated aggressively, she is instructed to continue to follow up with her outpatient oceanographer physical. Her numerous complaints appear to be chronic in nature, and there does not appear to be in acute condition at this time to require emergent intervention or hospital admission. Critical care attestation.: If time is entered above; I have spent that time in minutes in the direct care of this critically ill patient, excluding procedure time. ED Disposition Clinical Impression: Radicular pain, Chronic wound of extremity Disposition: DC- TO HOME OR SELFCARE Is pt being admited?: No Does the pt Need Aspirin: No Condition: Stable Instructions: Chronic Wound Care (ED), Lumbar Radiculopathy (ED) Additional Instructions: Follow-up with your physical medicine pain specialist within the next 2 weeks. Alternatively, you may follow up with the listed spine surgeon ( Dr Staples) , or the spine surgeon of your choice for a second opinion. Lumbar/radicular back pain such as what you are experiencing is typically a long-term chronic issue, and is very unusual to go away. I recommend aggressive weight loss. Take the pain medication as directed. Follow up with the primary care doctor or the local wound care center for the left lower extremity ulcer. Use the antibiotic ointment as directed. Cultures were sent today, results will be available in the next 3-5 days. Have a primary care doctor contact the medical records department to obtain culture results. Return to the ER right away with new pain, worsened pain, migration of pain, fevers, chills, lethargy, irritability, confusion, projectile vomiting , bladder or bowel retention/incontinence. Prescriptions: Acetaminophen [Tylenol Arthritis] 650 mg PO Q6HR PRN #30 tablet.er PRN Reason: Pain Ibuprofen [Motrin] 600 mg PO Q8H PRN #30 tablet PRN Reason: Pain Mupirocin [Bactroban 2%] 1 applic TP BID #1 tube Referrals: PRIMARY CAREMD [Primary Care Provider] - 3-5 Days OLGA DENNEY MD [Referring] - 3-5 Days MADIE STAPLES MD [Staff Physician] - 3-5 Days [facility] [Outside] - 3-5 Days
[2017-07-08] MEDS ORDERED: TRIPLE ANTIBIOTIC TP ONE ×2 (04:37→04:45)
[2017-07-08 05:05] VITALS: BP 131/75
--- NOTE | 2017-07-08 09:25 | XRay Report ---
LEFT TIBIA/FIBULA: History: Pain and swelling. AP and lateral views of the left tibia/fibula demonstrate normal mineralization and contours for this patient's age. No destructive changes are noted and the adjacent soft tissues are normal. IMPRESSION: Normal left tibia/fibula.
--- NOTE | 2017-07-08 09:26 | XRay Report ---
AP and lateral of the lumbar spine. History: Back pain. Findings: There is moderate dextroscoliosis of the lumbar spine. There is narrowing of the disc spaces at L1-2, L2-3, and L4-5. There no fractures or other acute findings. Pedicles are intact. Impression: Dextroscoliosis with multilevel degenerative disc disease.
== END 2017-07-08 05:04 | disposition home or self-care (01) ==
LOC: ED 16:42
DX: M54.10 Radiculopathy, site unspecified (principal); T14.8 Other injury of unspecified body region; G89.29 Other chronic pain; I10 Essential (primary) hypertension; E11.9 Type 2 diabetes mellitus without complications; K21.9 Gastro-esophageal reflux disease without esophagitis; G43.909 Migraine, unspecified, not intractable, without status migrainosus; J45.909 Unspecified asthma, uncomplicated; E03.9 Hypothyroidism, unspecified; Z79.4 Long term (current) use of insulin; Z88.0 Allergy status to penicillin; Z88.2 Allergy status to sulfonamides; Z91.040 Latex allergy status
CPT/HCPCS: 36415; 72100; 73590; 80048; 82140; 85025; 85652; 86140; 87040; 96372; 99284; J1170; A6250

== ENCOUNTER 2017-07-11 07:58 | Outpatient (CLI) | payer MEDICARE ==
[2017-07-11] MEDS ORDERED: XYLOCAINE TOPICAL 4% TP ONE ×2 (08:34→09:00)
[2017-07-11] MEDS ORDERED: NACL 0.9% 500 ML IR ONE (10:26)
[2017-07-11] MEDS ORDERED: NACL 0.9% IR ONE (14:52)
== END 2017-07-11 07:59 | disposition home or self-care (01) ==
LOC: WOUND 07:58
PROVIDERS: ATTEND Podiatrist
DX: E11.622 Type 2 diabetes mellitus with other skin ulcer (principal); L97.822 Non-pressure chronic ulcer of other part of left lower leg with fat layer exposed; E11.40 Type 2 diabetes mellitus with diabetic neuropathy, unspecified; I10 Essential (primary) hypertension; Z87.891 Personal history of nicotine dependence; Z72.89 Other problems related to lifestyle
CPT/HCPCS: 11042; 87075; 87076; 87116; 87186; G0463

== ENCOUNTER 2017-07-16 14:57 | Outpatient (CLI) | payer MEDICARE ==
--- NOTE | 2017-07-16 16:31 | Magnetic Resonance Report ---
MRI of the lumbar spine. History: Lumbosacral radiculopathy. Procedure: Sagittal T1-weighted, T2-weighted, inversion recovery images, and axial T1 and T2-weighted images were used in the study. Findings: There is no evidence of disc herniation or significant disc bulge throughout the lumbar region. At the L5-S1 level, there is bilateral facet joint DJD and hypertrophy, more pronounced on the right. There is no spinal stenosis. The conus medullaris is normal in contour but is at the L2-3 level which may represent a normal variation. No intradural abnormalities are seen. There are no significant bony findings. Impression: Facet joint DJD and hypertrophy at L5-S1, greater on the right. There is no evidence of spinal stenosis. No significant disc pathology. 2. The conus medullaris terminates at the L2-3 level.
== END 2017-07-16 14:58 | disposition home or self-care (01) ==
LOC: MRI 14:57
PROVIDERS: ATTEND Physical Medicine & Rehabilitation
DX: M47.27 Other spondylosis with radiculopathy, lumbosacral region (principal)
CPT/HCPCS: 72148

== ENCOUNTER 2017-07-18 07:59 | Outpatient (CLI) | payer MEDICARE ==
[2017-07-18] MEDS ORDERED: XYLOCAINE TOPICAL 4% TP ONE ×3 (08:30→08:42)
== END 2017-07-18 08:00 | disposition home or self-care (01) ==
LOC: WOUND 07:59
PROVIDERS: ATTEND Podiatrist
DX: E11.622 Type 2 diabetes mellitus with other skin ulcer (principal); L97.822 Non-pressure chronic ulcer of other part of left lower leg with fat layer exposed; E11.40 Type 2 diabetes mellitus with diabetic neuropathy, unspecified; I10 Essential (primary) hypertension; Z87.891 Personal history of nicotine dependence; Z72.89 Other problems related to lifestyle

== ENCOUNTER 2017-07-25 08:01 | Outpatient (CLI) | payer MEDICARE ==
[2017-07-25] MEDS ORDERED: XYLOCAINE TOPICAL 4% TP ONE (10:00)
== END 2017-07-25 08:02 | disposition home or self-care (01) ==
LOC: WOUND 08:01
PROVIDERS: ATTEND Podiatrist
DX: E11.622 Type 2 diabetes mellitus with other skin ulcer (principal); L97.822 Non-pressure chronic ulcer of other part of left lower leg with fat layer exposed; E11.40 Type 2 diabetes mellitus with diabetic neuropathy, unspecified; I10 Essential (primary) hypertension; M06.9 Rheumatoid arthritis, unspecified; Z87.891 Personal history of nicotine dependence

== ENCOUNTER 2017-08-01 08:04 | Outpatient (CLI) | payer MEDICARE ==
[~2017-08-01 08:04] MED LIST: XYLOCAINE TOPICAL 4% TP ONE
[2017-08-01] MEDS ORDERED: XYLOCAINE TOPICAL 4% TP ONE (08:11)
== END 2017-08-01 08:05 | disposition home or self-care (01) ==
LOC: WOUND 08:04
PROVIDERS: ATTEND Podiatrist
DX: E11.622 Type 2 diabetes mellitus with other skin ulcer (principal); L97.822 Non-pressure chronic ulcer of other part of left lower leg with fat layer exposed; E11.40 Type 2 diabetes mellitus with diabetic neuropathy, unspecified; M06.9 Rheumatoid arthritis, unspecified; I10 Essential (primary) hypertension; Z87.891 Personal history of nicotine dependence; Z72.89 Other problems related to lifestyle

== ENCOUNTER 2017-08-08 07:55 | Outpatient (CLI) | payer MEDICARE ==
[2017-08-08] MEDS ORDERED: XYLOCAINE TOPICAL 2% ONE (08:17)
[2017-08-08] MEDS ORDERED: XYLOCAINE TOPICAL 2% TP ONE (08:19)
== END 2017-08-08 07:56 | disposition home or self-care (01) ==
LOC: WOUND 07:55
PROVIDERS: ATTEND Podiatrist
DX: E11.622 Type 2 diabetes mellitus with other skin ulcer (principal); L97.822 Non-pressure chronic ulcer of other part of left lower leg with fat layer exposed; E11.40 Type 2 diabetes mellitus with diabetic neuropathy, unspecified; M06.9 Rheumatoid arthritis, unspecified; Z87.891 Personal history of nicotine dependence; Z72.89 Other problems related to lifestyle

== ENCOUNTER 2017-08-22 08:13 | Outpatient (CLI) | payer MEDICARE ==
[2017-08-22] MEDS ORDERED: XYLOCAINE TOPICAL 4% TP ONE ×2 (08:42→11:14)
== END 2017-08-22 08:14 | disposition home or self-care (01) ==
LOC: WOUND 08:13
PROVIDERS: ATTEND Podiatrist
DX: E11.622 Type 2 diabetes mellitus with other skin ulcer (principal); L97.822 Non-pressure chronic ulcer of other part of left lower leg with fat layer exposed; E11.40 Type 2 diabetes mellitus with diabetic neuropathy, unspecified; M06.9 Rheumatoid arthritis, unspecified; I10 Essential (primary) hypertension; Z87.891 Personal history of nicotine dependence

== ENCOUNTER 2017-08-29 08:00 | Outpatient (CLI) | payer MEDICARE ==
[2017-08-29] MEDS ORDERED: XYLOCAINE TOPICAL 2% TP ONE (08:25)
[2017-08-29] MEDS ORDERED: XYLOCAINE TOPICAL 2% ONE (08:29)
== END 2017-08-29 08:01 | disposition home or self-care (01) ==
LOC: WOUND 08:00
PROVIDERS: ATTEND Podiatrist
DX: E11.622 Type 2 diabetes mellitus with other skin ulcer (principal); L97.822 Non-pressure chronic ulcer of other part of left lower leg with fat layer exposed; E11.40 Type 2 diabetes mellitus with diabetic neuropathy, unspecified; I10 Essential (primary) hypertension; M06.9 Rheumatoid arthritis, unspecified; Z87.891 Personal history of nicotine dependence; Z72.89 Other problems related to lifestyle

== ENCOUNTER 2017-08-29 11:06 | Inpatient (IN) | payer MEDICARE ==
--- NOTE | 2017-08-29 12:14 | XRay Report ---
Single view chest: Compared to 10/31/16 p.m. History: Shortness of breath. Findings: Borderline cardiomegaly paratracheal midline. No consolidation, pneumothorax or pleural effusion. Impression: No acute cardiopulmonary findings.
[2017-08-29 12:31] LABS: Anion Gap 21 mmol/L; BUN/Creatinine Ratio 14; Blood Urea Nitrogen 17 mg/dL (7-17); Calcium 9.1 mg/dL (8.4-10.2); Carbon Dioxide 22 mmol/L (22-30); Chloride 100.2 mmol/L (98-107); Glucose 239 mg/dL (65-100); Potassium 3.5 mmol/L (3.6-5.0); Sodium 140 mmol/L (137-145)
[2017-08-29 12:42] LABS: Basophils % (Auto) 0.8 % (0.0-1.8); Eosinophils % (Auto) 2.6 % (0.0-4.3); Hematocrit 28.4 % (30.3-42.9); Mean Corpuscular HGB Conc 32 % (30-34); Mean Corpuscular Hemoglobin 27 pg (28-32); Mean Corpuscular Volume 85 fl (79-97); Platelet Count 365 K/mm3 (140-440); Red Blood Count 3.36 M/mm3 (3.65-5.03); Red Cell Distribution Width 15.3 % (13.2-15.2); White Blood Count 7.5 K/mm3 (4.5-11.0)
--- NOTE | 2017-08-29 13:18 | Emergency Department Report ---
HPI - General Chief Complaint: Dyspnea/Respdistress Time Seen by Provider: 08/29/17 13:01 - HPI HPI: Room 5 The patient is a 52-year-old female presenting with a chief complaint of near syncope. The patient states she was diagnosed with right lower extremity DVT and PE approximately 2 weeks ago started out with. The patient states this morning at approximately 10:00 she began to feel near syncopal with worsening shortness of breath and fatigue. The patient states she return her head she received "darkness." The patient states that she contacted her carbon rod inserter office and the nurse informed her to call EMS. The patient states when she checked her blood pressure was low at 87/55. Patient now complains of feeling jittery and has pain in her right lower extremity. Patient states her shortness of breath is improved Location: [See above] Duration: [See above] Quality: [See above] Severity: [See above] Modifying factors: [see above] Context: [see above] Mode of transportation: [not driving] ED Past Medical Hx - Past Medical History Hx Hypertension: Yes Hx Diabetes: Yes Hx GERD: Yes (2010) Hx Arthritis: Yes Hx Headaches / Migraines: Yes Hx Asthma: Yes Additional medical history: lupus, compressed disc, hyperthyroidism, rheumatoid arthritis, DVT/PE - Surgical History Additional Surgical History: ectopic , D&C x 3. - Family History Family history: no significant - Social History Smoking Status: Never Smoker Substance Use Type: None - Medications Home Medications: Home Medications Medication Instructions Recorded Confirmed Last Taken Type Folic Acid 1 mg PO QDAY #30 capsule 11/02/16 08/29/17 Unknown Rx Lisinopril [Zestril TAB] 40 mg PO DAILY #30 tablet 11/02/16 08/29/17 Unknown Rx Oxybutynin [Ditropan] 5 mg PO BID #60 tablet 11/02/16 08/29/17 Unknown Rx hydrALAZINE [Apresoline TAB] 25 mg PO BID #60 tablet 11/02/16 08/29/17 Unknown Rx predniSONE [Deltasone] 10 mg PO QDAY #30 tablet 11/02/16 08/29/17 Unknown Rx Amlodipine Besylate [Norvasc] 10 mg PO QDAY 08/29/17 08/29/17 Unknown History Ergocalciferol [Vitamin D2] 1 cap PO QWEEK 08/29/17 08/29/17 Unknown History Gabapentin [Neurontin] 300 mg PO TID 08/29/17 08/29/17 Unknown History Hydrochlorothiazide [HCTZ] 25 mg PO QDAY 08/29/17 08/29/17 Unknown History Insulin Aspart [NovoLOG Flexpen] 10 - 20 units SUB-Q TID 08/29/17 08/29/17 Unknown History Insulin Glargine,Hum.rec.anlog 55 units SUB-Q DAILY 08/29/17 08/29/17 Unknown History [Lantus Solostar] Leflunomide [Arava] 10 mg PO QDAY 08/29/17 08/29/17 Unknown History Magnesium Oxide [Bennett] 500 mg PO BID 08/29/17 08/29/17 Unknown History Metoprolol Succinate [Toprol Xl] 25 mg PO QDAY 08/29/17 08/29/17 Unknown History glipiZIDE [Glipizide] 10 mg PO DAILY 08/29/17 08/29/17 Unknown History ED Review of Systems ROS: Stated complaint: WEAK/FAINT/DIZZY Other details as noted in HPI Comment: All other systems reviewed and negative Constitutional: denies: chills, fever Eyes: denies: eye pain, eye discharge, vision change ENT: denies: ear pain, throat pain Respiratory: shortness of breath Cardiovascular: denies: chest pain, palpitations Endocrine: no symptoms reported Gastrointestinal: denies: abdominal pain, nausea, diarrhea Genitourinary: denies: urgency, dysuria, discharge Musculoskeletal: myalgia Skin: denies: rash, lesions Neurological: other (near-syncope) Psychiatric: denies: anxiety, depression Hematological/Lymphatic: denies: easy bleeding, easy bruising Physical Exam - Physical Exam Vital Signs: Vital Signs 08/29/17 11:16 Pulse Rate 98 H Respiratory 21 Rate Blood Pressure 114/47 O2 Sat by Pulse 100 Oximetry Physical Exam: GENERAL: The patient is well-developed well-nourished female lying on stretcher not appearing to be in acute distress. [] HEENT: Normocephalic. Atraumatic. Extraocular motions are intact. Patient has moist mucous membranes. NECK: Supple. Trachea midline CHEST/LUNGS: There is no respiratory distress noted. HEART/CARDIOVASCULAR: Regular. There is no tachycardia. ABDOMEN: Abdomen is soft, nontender. Patient has normal bowel sounds. There is no abdominal distention. SKIN: There is no rash. There is no edema. There is no diaphoresis. NEURO: The patient is awake, alert, and oriented. The patient is cooperative. The patient has normal speech MUSCULOSKELETAL: There is no evidence of acute injury. ED Course Vital Signs 08/29/17 11:16 Pulse Rate 98 H Respiratory 21 Rate Blood Pressure 114/47 O2 Sat by Pulse 100 Oximetry ED Medical Decision Making - Lab Data Result diagrams: 08/29/17 11:57 08/29/17 11:57 Laboratory Tests 08/29/17 08/29/17 11:57 11:57 WBC 7.5 RBC 3.36 L Hgb 9.0 L Hct 28.4 L MCV 85 MCH 27 L MCHC 32 RDW 15.3 H Plt Count 365 Lymph % (Auto) 20.8 [place] % (Auto) 5.6 Eos % (Auto) 2.6 Baso % (Auto) 0.8 Lymph # 1.6 [place] # 0.4 Eos # 0.2 Baso # 0.1 Seg Neutrophils % 70.2 H Seg Neutrophils # 5.2 Sodium 140 Potassium 3.5 L Chloride 100.2 Carbon Dioxide 22 Anion Gap 21 BUN 17 Creatinine 1.2 Estimated GFR 57 BUN/Creatinine Ratio 14 Glucose 239 H Calcium 9.1 Troponin T < 0.010 - EKG Data -: EKG Interpreted by Me EKG shows normal: sinus rhythm Rate: normal - EKG Data When compared to previous EKG there are: no significant change Interpretation: unchanged when compared t (11/03/2016) - Differential Diagnosis PE Critical care attestation.: If time is entered above; I have spent that time in minutes in the direct care of this critically ill patient, excluding procedure time. ED Disposition Clinical Impression: Pulmonary embolus, Near syncope Disposition: DC-09 OP ADMIT IP TO THIS HOSP Is pt being admited?: Yes Does the pt Need Aspirin: No Condition: Fair Referrals: PRIMARY CARE, [Primary Care Provider] - 3-5 Days Time of Disposition: 13:35 (Dr Melissa thrasher)
--- NOTE | 2017-08-29 15:22 | Consultation ---
History of Present Illness Consult date: 08/29/17 Consult reason: known to you History of present illness: 52yr old woman with multiple medical problems. She has a recent diagnosis of PE/ DVT and is anticoagulated on eliquis therapy. There is no history of coronary artery disease. Within the last year she underwent a persantine thallium stress test that reports a normal myocardial perfusion. An echocardiogram demonstrates a normal left ventricular systolic function, ejection fraction 60%. She was brought to the emergency room with reports of near syncope. Patient reports shortly after leaving the wound clinic, she felt dizzy, short of breath and noted palpitations. Patient reports blood pressure of 87/55, heart rate of 109 and a blood glucose of 99 when checked at home. Patient denies loss of consciousness. Reports compliance with eliquis therapy. Cardiology consultation was requested. Medications and Allergies Allergies Allergy/AdvReac Type Severity Reaction Status Date / Time latex Allergy Rash Verified 04/07/14 07:52 Sulfa (Sulfonamide Allergy Unknown Verified 10/31/16 08:29 Antibiotics) Penicillins AdvReac Itching Verified 11/18/14 12:54 Home Medications Medication Instructions Recorded Confirmed Last Taken Type Folic Acid 1 mg PO QDAY #30 capsule 11/02/16 08/29/17 Unknown Rx Lisinopril [Zestril TAB] 40 mg PO DAILY #30 tablet 11/02/16 08/29/17 Unknown Rx Oxybutynin [Ditropan] 5 mg PO BID #60 tablet 11/02/16 08/29/17 Unknown Rx hydrALAZINE [Apresoline TAB] 25 mg PO BID #60 tablet 11/02/16 08/29/17 Unknown Rx predniSONE [Deltasone] 10 mg PO QDAY #30 tablet 11/02/16 08/29/17 Unknown Rx Amlodipine Besylate [Norvasc] 10 mg PO QDAY 08/29/17 08/29/17 Unknown History Ergocalciferol [Vitamin D2] 1 cap PO QWEEK 08/29/17 08/29/17 Unknown History Gabapentin [Neurontin] 300 mg PO TID 08/29/17 08/29/17 Unknown History Hydrochlorothiazide [HCTZ] 25 mg PO QDAY 08/29/17 08/29/17 Unknown History Insulin Aspart [NovoLOG Flexpen] 10 - 20 units SUB-Q TID 08/29/17 08/29/17 Unknown History Insulin Glargine,Hum.rec.anlog 55 units SUB-Q DAILY 08/29/17 08/29/17 Unknown History [Lantus Solostar] Leflunomide [Arava] 10 mg PO QDAY 08/29/17 08/29/17 Unknown History Magnesium Oxide [Bennett] 500 mg PO BID 08/29/17 08/29/17 Unknown History Metoprolol Succinate [Toprol Xl] 25 mg PO QDAY 08/29/17 08/29/17 Unknown History glipiZIDE [Glipizide] 10 mg PO DAILY 08/29/17 08/29/17 Unknown History Physical Examination Vital Signs Pulse Resp BP Pulse Ox 98 H 21 114/47 100 08/29/17 11:16 08/29/17 11:16 08/29/17 11:16 08/29/17 11:16 General appearance: no acute distress HEENT: Positive: PERRL Neck: Positive: trachea midline Cardiac: Positive: Reg Rate and Rhythm Lungs: Positive: Decreased Breath Sounds Neuro: Positive: Grossly Intact Results 08/29/17 11:57 08/29/17 11:57 CBC 08/29/17 Range/Units 11:57 WBC 7.5 (4.5-11.0) K/mm3 RBC 3.36 L (3.65-5.03) M/mm3 Hgb 9.0 L (10.1-14.3) gm/dl Hct 28.4 L (30.3-42.9) % Plt Count 365 (140-440) K/mm3 Lymph # 1.6 (1.2-5.4) K/mm3 [place] # 0.4 (0.0-0.8) K/mm3 Eos # 0.2 (0.0-0.4) K/mm3 Baso # 0.1 (0.0-0.1) K/mm3 Comprehensive Metabolic Panel 08/29/17 Range/Units 11:57 Sodium 140 (137-145) mmol/L Potassium 3.5 L (3.6-5.0) mmol/L Chloride 100.2 (98-107) mmol/L Carbon Dioxide 22 (22-30) mmol/L BUN 17 (7-17) mg/dL Creatinine 1.2 (0.7-1.2) mg/dL Glucose 239 H (65-100) mg/dL Calcium 9.1 (8.4-10.2) mg/dL Assessment and Plan Near syncope Hx of PE/DVT on eliquis therapy Hypertension Obesity DM normal perfusion MPI 10/2016 EF 60% on echo 12/2016
[2017-08-29] MEDS ORDERED: D50W (25GM) Syringe IV PRN (19:09)
--- NOTE | 2017-08-29 21:45 | History and Physical Report ---
History of Present Illness Date of examination: 08/29/17 Date of admission: 08/29/17 14:16 Chief complaint: CC Near Syncop few hrs ago SOB increasing History of present illness: LORRAINE The patient is a 52-year-old female presenting with a chief complaint of near syncope. The patient states she was diagnosed with right lower extremity DVT and PE approximately 2 weeks ago started out with. The patient states this morning at approximately 10:00 she began to feel near syncopal with worsening shortness of breath and fatigue. The patient states she return her head she received "darkness." The patient states that she contacted her [employer] office and the nurse informed her to call EMS. The patient states when she checked her blood pressure was low at 87/55. Patient now complains of feeling jittery and has pain in her right lower extremity. Patient states her shortness of breath is improved - Past Medical History Hx Hypertension: Yes Hx Diabetes: Yes Hx GERD: Yes (2010) Hx Arthritis: Yes Hx Headaches / Migraines: Yes Hx Asthma: Yes Additional medical history: lupus, compressed disc, hyperthyroidism, rheumatoid arthritis, DVT/PE - Surgical History Additional Surgical History: ectopic , D&C x 3. - Family History Family history: no significant - Social History Smoking Status: Never Smoker Substance Use Type: None - Medications Home Medications: Home Medications Medication Instructions Recorded Confirmed Last Taken Type Folic Acid 1 mg PO QDAY #30 capsule 11/02/16 08/29/17 Unknown Rx Lisinopril [Zestril TAB] 40 mg PO DAILY #30 tablet 11/02/16 08/29/17 Unknown Rx Oxybutynin [Ditropan] 5 mg PO BID #60 tablet 11/02/16 08/29/17 Unknown Rx hydrALAZINE [Apresoline TAB] 25 mg PO BID #60 tablet 11/02/16 08/29/17 Unknown Rx predniSONE [Deltasone] 10 mg PO QDAY #30 tablet 11/02/16 08/29/17 Unknown Rx Amlodipine Besylate [Norvasc] 10 mg PO QDAY 08/29/17 08/29/17 Unknown History Ergocalciferol [Vitamin D2] 1 cap PO QWEEK 08/29/17 08/29/17 Unknown History Gabapentin [Neurontin] 300 mg PO TID 08/29/17 08/29/17 Unknown History Hydrochlorothiazide [HCTZ] 25 mg PO QDAY 08/29/17 08/29/17 Unknown History Insulin Aspart [NovoLOG Flexpen] 10 - 20 units SUB-Q TID 08/29/17 08/29/17 Unknown History Insulin Glargine,Hum.rec.anlog 55 units SUB-Q DAILY 08/29/17 08/29/17 Unknown History [Lantus Solostar] Leflunomide [Arava] 10 mg PO QDAY 08/29/17 08/29/17 Unknown History Magnesium Oxide [Bennett] 500 mg PO BID 08/29/17 08/29/17 Unknown History Metoprolol Succinate [Toprol Xl] 25 mg PO QDAY 08/29/17 08/29/17 Unknown History glipiZIDE [Glipizide] 10 mg PO DAILY 08/29/17 08/29/17 Unknown History Review of Systems ROS: Stated complaint: WEAK/FAINT/DIZZY Other details as noted in HPI Comment: All other systems reviewed and negative Constitutional: denies: chills, fever Eyes: denies: eye pain, eye discharge, vision change ENT: denies: ear pain, throat pain Respiratory: shortness of breath Cardiovascular: denies: chest pain, palpitations Endocrine: no symptoms reported Gastrointestinal: denies: abdominal pain, nausea, diarrhea Genitourinary: denies: urgency, dysuria, discharge Musculoskeletal: myalgia Skin: denies: rash, lesions Neurological: other (near-syncope) Psychiatric: denies: anxiety, depression Hematological/Lymphatic: denies: easy bleeding, easy bruising Medications and Allergies Allergies Allergy/AdvReac Type Severity Reaction Status Date / Time latex Allergy Rash Verified 04/07/14 07:52 Sulfa (Sulfonamide Allergy Unknown Verified 10/31/16 08:29 Antibiotics) Penicillins AdvReac Itching Verified 11/18/14 12:54 Home Medications Medication Instructions Recorded Confirmed Last Taken Type Folic Acid 1 mg PO QDAY #30 capsule 11/02/16 08/29/17 08/29/17 13:45 Rx Lisinopril [Zestril TAB] 40 mg PO DAILY #30 tablet 11/02/16 08/29/17 08/29/17 06 :30 Rx Oxybutynin [Ditropan] 5 mg PO BID #60 tablet 11/02/16 08/29/17 08/29/17 06:30 Rx hydrALAZINE [Apresoline TAB] 25 mg PO BID #60 tablet 11/02/16 08/29/17 08/29/17 06:30 Rx predniSONE [Deltasone] 10 mg PO QDAY #30 tablet 11/02/16 08/29/17 08/29/17 06: 30 Rx Amlodipine Besylate [Norvasc] 10 mg PO QDAY 08/29/17 08/29/17 08/28/17 13:00 History Ergocalciferol [Vitamin D2] 1 cap PO QWEEK 08/29/17 08/29/17 08/25/17 06:30 History Gabapentin [Neurontin] 300 mg PO TID 08/29/17 08/29/17 08/29/17 06:30 History Hydrochlorothiazide [HCTZ] 25 mg PO QDAY 08/29/17 08/29/17 08/29/17 06:30 History Insulin Aspart [NovoLOG Flexpen] See Protocol SUB-Q TID 08/29/17 08/29/17 Unknown History Insulin Glargine,Hum.rec.anlog 30 units SUB-Q DAILY 08/29/17 08/29/17 08/29/17 06:30 History [Lantus Solostar] Leflunomide [Arava] 10 mg PO QDAY 08/29/17 08/29/17 08/28/17 13:45 History Magnesium Oxide [Bennett] 500 mg PO BID 08/29/17 08/29/17 08/29/17 06:30 History Metoprolol Succinate [Toprol Xl] 25 mg PO QDAY 08/29/17 08/29/17 08/28/17 13:00 History glipiZIDE [Glipizide] 10 mg PO DAILY 08/29/17 08/29/17 08/28/17 13:45 History Active Meds: Active Medications Dextrose (D50w (25gm) Syringe) 50 ml IV PRN PRN PRN Reason: Hypoglycemia Influenza Virus Vaccine Quadrival (Fluarix Quad [id number](36 Mos+) 0.5 ml IM .ONCE ONE Stop: 08/30/17 12:01 Insulin Aspart (Novolog) 0 units SUB-Q ACHS [facility] PRN Reason: Protocol Exam - Constitutional Vitals: Temp Pulse Resp BP Pulse Ox 98.3 F 97 H 18 103/53 98 08/29/17 19:17 08/29/17 19:17 08/29/17 19:17 08/29/17 19:17 08/29/17 19:17 General appearance: Present: mild distress - EENT Eyes: Present: PERRL, EOM intact ENT: hearing intact, clear oral mucosa - Neck Neck: Present: supple, normal ROM - Respiratory Respiratory effort: normal Respiratory: bilateral: CTA - Cardiovascular Heart rate: 80 Rhythm: regular Heart Sounds: Present: S1 & S2. Absent: rub, click - Extremities Extremities: no ischemia, pulses intact, pulses symmetrical Peripheral Pulses: within normal limits - Abdominal General gastrointestinal: Present: deferred Female genitourinary: Present: normal - Rectal Rectal Exam: deferred - Integumentary Integumentary: Present: clear, warm, dry - Musculoskeletal Musculoskeletal: strength equal bilaterally - Psychiatric Psychiatric: appropriate mood/affect, cooperative - Neurologic Neurologic: CNII-XII intact, moves all extremities - Allied Health Allied health notes reviewed: nursing, case management Results - Labs CBC & Chem 7: 08/30/17 04:51 08/30/17 04:51 Labs: Laboratory Last Values WBC 7.5 K/mm3 (4.5-11.0) 08/29/17 11:57 RBC 3.36 M/mm3 (3.65-5.03) L 08/29/17 11:57 Hgb 9.0 gm/dl (10.1-14.3) L 08/29/17 11:57 Hct 28.4 % (30.3-42.9) L 08/29/17 11:57 MCV 85 fl (79-97) 08/29/17 11:57 MCH 27 pg (28-32) L 08/29/17 11:57 MCHC 32 % (30-34) 08/29/17 11:57 RDW 15.3 % (13.2-15.2) H 08/29/17 11:57 Plt Count 365 K/mm3 (140-440) 08/29/17 11:57 Lymph % (Auto) 20.8 % (13.4-35.0) 08/29/17 11:57 [place] % (Auto) 5.6 % (0.0-7.3) 08/29/17 11:57 Eos % (Auto) 2.6 % (0.0-4.3) 08/29/17 11:57 Baso % (Auto) 0.8 % (0.0-1.8) 08/29/17 11:57 Lymph # 1.6 K/mm3 (1.2-5.4) 08/29/17 11:57 [place] # 0.4 K/mm3 (0.0-0.8) 08/29/17 11:57 Eos # 0.2 K/mm3 (0.0-0.4) 08/29/17 11:57 Baso # 0.1 K/mm3 (0.0-0.1) 08/29/17 11:57 Seg Neutrophils % 70.2 % (40.0-70.0) H 08/29/17 11:57 Seg Neutrophils # 5.2 K/mm3 (1.8-7.7) 08/29/17 11:57 Sodium 140 mmol/L (137-145) 08/29/17 11:57 Potassium 3.5 mmol/L (3.6-5.0) L 08/29/17 11:57 Chloride 100.2 mmol/L (98-107) 08/29/17 11:57 Carbon Dioxide 22 mmol/L (22-30) 08/29/17 11:57 Anion Gap 21 mmol/L 08/29/17 11:57 BUN 17 mg/dL (7-17) 08/29/17 11:57 Creatinine 1.2 mg/dL (0.7-1.2) 08/29/17 11:57 Estimated GFR 57 ml/min 08/29/17 11:57 BUN/Creatinine Ratio 14 % 08/29/17 11:57 Glucose 239 mg/dL (65-100) H 08/29/17 11:57 POC Glucose 324 (70-105) H 08/29/17 20:56 Calcium 9.1 mg/dL (8.4-10.2) 08/29/17 11:57 Troponin T < 0.010 ng/mL (0.00-0.029) 08/29/17 11:57 Assessment and Plan Advance Directives: Yes (FC) VTE prophylaxis?: Chemical Plan of care discussed with patient/family: Yes - Patient Problems (1) Near syncope Current Visit: Yes Status: Acute Plan to address problem: Syncope w/u Sec to PE CDS ordered (2) Acute pulmonary embolism Current Visit: Yes Status: Acute Qualifiers: Pulmonary embolism type: other Acute cor pulmonale presence: without acute cor pulmonale Qualified Code(s): I26.99 - Other pulmonary embolism without acute cor pulmonale Plan to address problem: Lovevenox weight base initiated Bridge to Coumadinto monitor INR. Eliquis -failed therapy IR consult requested for possible IVC Filter Has strong Fam HX of MD/DVT (3) IDDM (insulin dependent diabetes mellitus) Current Visit: Yes Status: Chronic Plan to address problem: Cont home Insulin and coverage. (4) HTN (hypertension) Current Visit: Yes Status: Chronic Qualifiers: Hypertension type: essential hypertension Qualified Code(s): I10 - Essential (primary) hypertension Plan to address problem: Cont Coverage
[2017-08-29] MEDS ORDERED: MILK OF MAGNESIA PO PRN (21:46)
[2017-08-29] MEDS ORDERED: DILAUDID IV PRN (21:46)
[2017-08-29] MEDS ORDERED: DULCOLAX PR PRN (21:46)
[2017-08-29] MEDS ORDERED: ZOFRAN IV PRN (21:46)
[2017-08-29] MEDS ORDERED: TYLENOL PO PRN (21:46)
[2017-08-29] MEDS ORDERED: PERCOCET 5/325 PO PRN (21:46)
[2017-08-29] MEDS ORDERED: LOVENOX SUB-Q SCH (22:00)
[2017-08-29] MEDS ORDERED: INSULIN GLARGINE HUM REC ANLOG 30 UNIT SUB-Q SCH (22:00)
[2017-08-29] MEDS ORDERED: NACL 0.9% 1000 ML 1,000 ML IV SCH (22:00)
[2017-08-29] MEDS ORDERED: LEFLUNOMIDE 10 MG PO SCH (22:00)
[2017-08-29] MEDS: NOVOLOG SUB-Q SCH (22:01)
--- NOTE | 2017-08-29 22:18 | Progress Note ---
Assessment and Plan Hypotension Differential includes: - Iatrogenic (medication induced) - Right ventricular dysfunction - Adrenal insufficiency (patient on chronic steroid therapy) History of PE and DVT on eliquis Anemia Rheumatoid arthritis Abnormal ECG Interval development of poor R wave progression in the precordial leads and T wave inversion in the inferior leads Recommendations: Echocardiogram to evaluate RV and LV function - echo pending, will reorder Consider stress dose steroids Will continue to follow Subjective Date of service: 08/29/17 Interval history: No acute events. Resting comfortably. No chest pain or SOB. Objective Vital Signs Temp Pulse Resp BP BP Pulse Ox 08/29/17 19:17 98.3 F 97 H 18 103/53 98 08/29/17 18:20 98.7 F 80 18 111/61 99 08/29/17 14:33 100 08/29/17 11:16 98 H 21 114/47 100 - Physical Examination HEENT: Positive: PERRL Neck: Positive: trachea midline Neuro: Positive: Grossly Intact - Labs and Meds CBC 08/29/17 Range/Units 11:57 WBC 7.5 (4.5-11.0) K/mm3 RBC 3.36 L (3.65-5.03) M/mm3 Hgb 9.0 L (10.1-14.3) gm/dl Hct 28.4 L (30.3-42.9) % Plt Count 365 (140-440) K/mm3 Lymph # 1.6 (1.2-5.4) K/mm3 [place] # 0.4 (0.0-0.8) K/mm3 Eos # 0.2 (0.0-0.4) K/mm3 Baso # 0.1 (0.0-0.1) K/mm3 Comprehensive Metabolic Panel 08/29/17 Range/Units 11:57 Sodium 140 (137-145) mmol/L Potassium 3.5 L (3.6-5.0) mmol/L Chloride 100.2 (98-107) mmol/L Carbon Dioxide 22 (22-30) mmol/L BUN 17 (7-17) mg/dL Creatinine 1.2 (0.7-1.2) mg/dL Glucose 239 H (65-100) mg/dL Calcium 9.1 (8.4-10.2) mg/dL
[2017-08-29] MEDS ORDERED: LOVENOX SUB-Q ONE (23:00)
[2017-08-29] MEDS: DITROPAN PO SCH (23:29)
[2017-08-29] MEDS: PEPCID PO SCH (23:29)
[2017-08-29] MEDS: MAG-OX PO SCH (23:29)
[2017-08-29] MEDS: APRESOLINE PO SCH (23:29)
[2017-08-29] MEDS: GLUCOTROL PO SCH (23:30)
[2017-08-29] MEDS: HCTZ PO SCH (23:30)
[2017-08-29] MEDS: ZESTRIL PO SCH (23:31)
[2017-08-29] MEDS: NORVASC PO SCH (23:31)
[2017-08-29] MEDS: TOPROL XL PO SCH (23:31)
[2017-08-29] MEDS: LOVENOX SUB-Q SCH (23:32)
[2017-08-29] MEDS: LEVEMIR SUB-Q SCH (23:32)
[2017-08-30 05:41] LABS: Basophils % (Auto) 0.7 % (0.0-1.8); Eosinophils % (Auto) 2.6 % (0.0-4.3); Hematocrit 25.5 % (30.3-42.9); Hemoglobin 8.3 gm/dl (10.1-14.3); Mean Corpuscular HGB Conc 33 % (30-34); Mean Corpuscular Hemoglobin 28 pg (28-32); Mean Corpuscular Volume 84 fl (79-97); Platelet Count 299 K/mm3 (140-440); Red Blood Count 3.04 M/mm3 (3.65-5.03); Red Cell Distribution Width 15.4 % (13.2-15.2)
[2017-08-30 05:50] LABS: Alanine Aminotransferase 15 units/L (7-56); Albumin 3.1 g/dL (3.9-5); Albumin/Globulin Ratio 1.3 %; Alkaline Phosphatase 52 units/L (35-129); Anion Gap 19 mmol/L; BUN/Creatinine Ratio 15; Blood Urea Nitrogen 15 mg/dL (7-17); Calcium 8.7 mg/dL (8.4-10.2); Carbon Dioxide 22 mmol/L (22-30); Glucose 163 mg/dL (65-100); Potassium 3.9 mmol/L (3.6-5.0); Sodium 142 mmol/L (137-145); Total Protein 5.5 g/dL (6.3-8.2)
[2017-08-30] MEDS: NOVOLOG SUB-Q SCH ×7 (08:00→21:21)
[2017-08-30] MEDS ORDERED: NON-FORMULARY (Insulin Aspart [Novolog Flexpen] 6 UNITS) SUB-Q SCH (08:00)
--- NOTE | 2017-08-30 11:06 | Consultation ---
History of Present Illness - Reason for Consult Consult date: 08/30/17 DVT/PE Requesting physician: DUNG NUÑEZ - History of Present Illness Patient presented to the hospital was near syncopal episode. He was admitted for workup. She has a history of two-week old diagnosis of right lobe subacute DVT and PE. She was on Eliquis prior to this hospitalization. Patient had hypotensive episode. Her H is 9. Past History Past Medical History: anemia Family history: other (sister had blood clots) Medications and Allergies Allergies Allergy/AdvReac Type Severity Reaction Status Date / Time latex Allergy Rash Verified 04/07/14 07:52 Sulfa (Sulfonamide Allergy Unknown Verified 10/31/16 08:29 Antibiotics) Penicillins AdvReac Itching Verified 11/18/14 12:54 Home Medications Medication Instructions Recorded Confirmed Last Taken Type Folic Acid 1 mg PO QDAY #30 capsule 11/02/16 08/29/17 08/29/17 13:45 Rx Lisinopril [Zestril TAB] 40 mg PO DAILY #30 tablet 11/02/16 08/29/17 08/29/17 06 :30 Rx Oxybutynin [Ditropan] 5 mg PO BID #60 tablet 11/02/16 08/29/17 08/29/17 06:30 Rx hydrALAZINE [Apresoline TAB] 25 mg PO BID #60 tablet 11/02/16 08/29/17 08/29/17 06:30 Rx predniSONE [Deltasone] 10 mg PO QDAY #30 tablet 11/02/16 08/29/17 08/29/17 06: 30 Rx Amlodipine Besylate [Norvasc] 10 mg PO QDAY 08/29/17 08/29/17 08/28/17 13:00 History Ergocalciferol [Vitamin D2] 1 cap PO QWEEK 08/29/17 08/29/17 08/25/17 06:30 History Gabapentin [Neurontin] 300 mg PO TID 08/29/17 08/29/17 08/29/17 06:30 History Hydrochlorothiazide [HCTZ] 25 mg PO QDAY 08/29/17 08/29/17 08/29/17 06:30 History Insulin Aspart [NovoLOG Flexpen] See Protocol SUB-Q TID 08/29/17 08/29/17 Unknown History Insulin Glargine,Hum.rec.anlog 30 units SUB-Q DAILY 08/29/17 08/29/17 08/29/17 06:30 History [Lantus Solostar] Leflunomide [Arava] 10 mg PO QDAY 08/29/17 08/29/17 08/28/17 13:45 History Magnesium Oxide [Bennett] 500 mg PO BID 08/29/17 08/29/17 08/29/17 06:30 History Metoprolol Succinate [Toprol Xl] 25 mg PO QDAY 08/29/17 08/29/17 08/28/17 13:00 History glipiZIDE [Glipizide] 10 mg PO DAILY 08/29/17 08/29/17 08/28/17 13:45 History Active Meds: Active Medications Acetaminophen (Tylenol) 650 mg PO Q4H PRN PRN Reason: Pain MILD(1-3)/Fever >100.5/BISHOP Amlodipine Besylate (Norvasc) 10 mg PO QDAY [facility] Last Admin: 08/29/17 23:31 Dose: Not Given Bisacodyl (Dulcolax) 10 mg CO QDAY PRN PRN Reason: Constipation unrelieved by MOM Dextrose (D50w (25gm) Syringe) 50 ml IV PRN PRN PRN Reason: Hypoglycemia Enoxaparin Sodium (Lovenox) 120 mg SUB-Q Q12H [facility] Last Admin: 08/29/17 23:32 Dose: 120 mg Famotidine (Pepcid) 20 mg PO BID [facility] Last Admin: 08/29/17 23:29 Dose: 20 mg Gabapentin (Neurontin) 300 mg PO TID [facility] Glipizide (Glucotrol) 10 mg PO DAILY [facility] Last Admin: 08/29/17 23:30 Dose: Not Given Hydralazine HCl (Apresoline) 25 mg PO BID [facility] Last Admin: 08/29/17 23:29 Dose: 25 mg Hydrochlorothiazide (Hctz) 25 mg PO QDAY [facility] Last Admin: 08/29/17 23:30 Dose: Not Given Hydromorphone HCl (Dilaudid) 0.5 mg IV Q3H PRN PRN Reason: Pain , Severe (7-10) Influenza Virus Vaccine Quadrival (Fluarix Quad [id number](36 Mos+) 0.5 ml IM .ONCE ONE Stop: 08/30/17 12:01 Insulin Aspart (Novolog) 0 units SUB-Q ACHS [facility] PRN Reason: Protocol Last Admin: 08/29/17 22:01 Dose: 6 units Insulin Aspart (Novolog) 6 units SUB-Q AC [facility] Insulin Detemir (Levemir) 30 units SUB-Q QHS [facility] Last Admin: 08/29/17 23:32 Dose: 30 units Lisinopril (Zestril) 40 mg PO DAILY [facility] Last Admin: 08/29/17 23:31 Dose: Not Given Magnesium Hydroxide (Milk Of Magnesia) 30 ml PO Q4H PRN PRN Reason: Constipation Magnesium Oxide (Mag-Ox) 400 mg PO BID [facility] Last Admin: 08/29/17 23:29 Dose: 400 mg Metoprolol Succinate (Toprol Xl) 25 mg PO QDAY [facility] Last Admin: 08/29/17 23:31 Dose: Not Given Miscellaneous Medication (Leflunomide [Arava]) 10 mg PO QDAY [facility] Ondansetron HCl (Zofran) 4 mg IV Q8H PRN PRN Reason: N/V unrelieved by Reglan Oxybutynin Chloride (Ditropan) 5 mg PO BID [facility] Last Admin: 08/29/17 23:29 Dose: 5 mg Oxycodone/Acetaminophen (Percocet 5/325) 1 tab PO Q6H PRN PRN Reason: Pain, Moderate (4-6) Prednisone (Deltasone) 10 mg PO QDAY [facility] Warfarin Sodium (Coumadin Pharmacy To Dose) 1 each PO PKCONSULT [facility] PRN Reason: Protocol Review of Systems All systems: negative (previous back pain and right leg pain) Exam - Constitutional Vitals: Temp Pulse Resp BP Pulse Ox 97.9 F 90 18 113/55 97 08/30/17 04:13 08/30/17 06:00 08/30/17 04:13 08/30/17 04:13 08/30/17 04:13 - Extremities Extremities: no ischemia Extremity abnormal: tenderness (right posterior calf) Peripheral Pulses: within normal limits Results - Labs CBC & Chem 7: 08/30/17 04:51 08/30/17 04:51 Labs: Abnormal lab results 08/29/17 08/29/17 08/29/17 Range/Units 11:57 11:57 20:56 RBC 3.36 L (3.65-5.03) M/mm3 Hgb 9.0 L (10.1-14.3) gm/dl Hct 28.4 L (30.3-42.9) % MCH 27 L (28-32) pg RDW 15.3 H (13.2-15.2) % Lymph % (Auto) (13.4-35.0) % [place] % (Auto) (0.0-7.3) % Seg Neutrophils % 70.2 H (40.0-70.0) % Potassium 3.5 L (3.6-5.0) mmol/L Glucose 239 H (65-100) mg/dL POC Glucose 324 H (70-105) Total Protein (6.3-8.2) g/dL Albumin (3.9-5) g/dL 08/30/17 08/30/17 Range/Units 04:51 04:51 RBC 3.04 L (3.65-5.03) M/mm3 Hgb 8.3 L (10.1-14.3) gm/dl Hct 25.5 L (30.3-42.9) % MCH (28-32) pg RDW 15.4 H (13.2-15.2) % Lymph % (Auto) 38.4 H (13.4-35.0) % [place] % (Auto) 7.8 H (0.0-7.3) % Seg Neutrophils % (40.0-70.0) % Potassium (3.6-5.0) mmol/L Glucose 163 H (65-100) mg/dL POC Glucose (70-105) Total Protein 5.5 L (6.3-8.2) g/dL Albumin 3.1 L (3.9-5) g/dL Assessment and Plan Right lower extremity DVT and PE. At this point patient has no contraindication to anticoagulation. I would recommend starting her on heparin drip. If she tolerates anticoagulation and her hemoglobin remains stable there is no indication for IVC filter placement at this time. She probably had provoked DVT due to bed rest caused by back pain. Although, her sister had also some blood clots therefore patient may have underlying hematologic disorder. Recommend hematology consult to define length of anticoagulation.
[2017-08-30] MEDS ORDERED: Fluarix Quad 2017-2018(36 MOS+ IM ONE (12:00)
[2017-08-30] MEDS: DELTASONE PO SCH (12:34)
[2017-08-30] MEDS: DITROPAN PO SCH ×2 (12:35→21:19)
[2017-08-30] MEDS: GLUCOTROL PO SCH (12:35)
[2017-08-30] MEDS: APRESOLINE PO SCH ×2 (12:35→22:00)
[2017-08-30] MEDS: MAG-OX PO SCH ×2 (12:36→21:18)
[2017-08-30] MEDS: PEPCID PO SCH ×2 (12:36→21:19)
[2017-08-30] MEDS: HCTZ PO SCH (12:37)
[2017-08-30] MEDS: ZESTRIL PO SCH (12:38)
[2017-08-30] MEDS: TOPROL XL PO SCH (12:38)
[2017-08-30] MEDS: NORVASC PO SCH (12:38)
[2017-08-30] MEDS: NEURONTIN PO SCH ×3 (12:40→21:18)
[2017-08-30] MEDS: LOVENOX SUB-Q SCH (14:43)
[2017-08-30] MEDS ORDERED: HEPARIN 10,000 UNITS/10 ML IV ONE ×2 (16:31→17:30)
--- NOTE | 2017-08-30 16:34 | Progress Note ---
Assessment and Plan /Near syncope Syncope w/u Sec to PE CDS ordered Abnormal ECG with Interval development of poor R wave progression in the precordial leads and T wave inversion in the inferior leads follow 2d echo /Anemia - will monitor H and H - anemia work up, ordered stool for occult blood /Acute pulmonary embolism Lovenox weight base initiated, transitioned to heparin IR consulted requested for possible IVC Filter, but she is not a candidate for that Has strong Fam HX of [place]/DVT, need further hematology f/u, could be done outpt /IDDM (insulin dependent diabetes mellitus) Cont home Insulin and SSI coverage. ADA diet /HTN (hypertension) Cont Coverage with home meds /h/o lupus on low dose steroid Dvt Px -on heparin Subjective Date of service: 08/30/17 Interval history: Patient seen and examined. Medical records and medication list reviewed. No acute event overnight noted by the RN. Patient denies any chest pain or difficulty breathing. Patient is tolerating diet. Discussed plan of care at bedside with patient. Objective - Exam Narrative Exam: GENERAL: Elderly obese -[place] female lying on bed appeared to be in no discomfort. HEENT: Normocephalic. Atraumatic. No conjunctival congestion or icterus. Patient has moist mucous membranes. NECK: Supple. Trachea midline. CHEST/LUNGS: Clear to auscultated bilaterally, breathing nonlabored. No wheezes crackles or rhonchi. HEART/CARDIOVASCULAR: Regular in rate and rhythm. S1 and S2 positive. ABDOMEN: Abdomen is soft, nontender. Patient has normal bowel sounds. SKIN: There is no rash. Warm and dry. NEURO: No focal motor deficit. Follows command. MUSCULOSKELETAL: No joint effusion or tenderness. EXTRIMITY: No edema, no cyanosis or clubbing. PSYCH: Cooperative. - Constitutional Vitals: Vital Signs - 12hr 08/30/17 06:00 Pulse Rate 90 - Labs CBC & Chem 7: 08/30/17 04:51 08/30/17 04:51 Labs: Abnormal lab results 08/29/17 08/30/17 08/30/17 Range/Units 20:56 04:51 04:51 RBC 3.04 L (3.65-5.03) M/mm3 Hgb 8.3 L (10.1-14.3) gm/dl Hct 25.5 L (30.3-42.9) % RDW 15.4 H (13.2-15.2) % Lymph % (Auto) 38.4 H (13.4-35.0) % [place] % (Auto) 7.8 H (0.0-7.3) % Glucose 163 H (65-100) mg/dL POC Glucose 324 H (70-105) Total Protein 5.5 L (6.3-8.2) g/dL Albumin 3.1 L (3.9-5) g/dL
[2017-08-30] MEDS ORDERED: HEPARIN/ 0.45% NACL-25,000 UNIT/500 ML 25,000 UNIT/500 ML BAG IV SCH (17:30)
[2017-08-30] MEDS: LEVEMIR SUB-Q SCH (21:26)
[2017-08-31 04:19] LABS: INR 1.09 (0.87-1.13)
--- NOTE | 2017-08-31 08:45 | Progress Note ---
Assessment and Plan Hypotension Differential includes: - Iatrogenic (medication induced) - Right ventricular dysfunction - Adrenal insufficiency (patient on chronic steroid therapy) History of PE and DVT on eliquis Anemia Rheumatoid arthritis Abnormal ECG Interval development of poor R wave progression in the precordial leads and T wave inversion in the inferior leads Recommendations: Echocardiogram shows normal EF Continue medical therapy. BP significantly improved. Subjective Date of service: 08/31/17 Interval history: No acute events. Resting comfortably. No chest pain or SOB. Objective Vital Signs Temp Pulse Resp BP BP Pulse Ox 08/31/17 08:40 98.2 F 103 H 19 119/68 98 08/31/17 04:58 98.2 F 104 H 18 138/83 97 08/30/17 23:22 98.2 F 100 H 18 127/70 98 08/30/17 22:00 18 08/30/17 19:18 97.9 F 97 H 18 119/57 97 08/30/17 16:31 80 - Physical Examination HEENT: Positive: PERRL Neck: Positive: trachea midline Neuro: Positive: Grossly Intact - Labs and Meds Coagulation 08/30/17 08/31/17 Range/Units 17:10 03:38 PT 14.7 (12.2-14.9) Sec. INR 1.09 (0.87-1.13) APTT 38.0 H (24.2-36.6) Sec.
[2017-08-31] MEDS: MAG-OX PO SCH ×2 (09:38→22:32)
[2017-08-31] MEDS: GLUCOTROL PO SCH (09:38)
[2017-08-31] MEDS: NEURONTIN PO SCH ×3 (09:38→22:32)
[2017-08-31] MEDS: NOVOLOG SUB-Q SCH ×7 (09:38→22:40)
[2017-08-31] MEDS: DITROPAN PO SCH ×2 (09:38→22:32)
[2017-08-31] MEDS: DELTASONE PO SCH (09:38)
[2017-08-31] MEDS: PEPCID PO SCH ×2 (09:38→22:32)
[2017-08-31 11:44] LABS: Hemoglobin 8.8 gm/dl (10.1-14.3)
[2017-08-31 12:24] LABS: Iron 48 ug/dL (37-170); Total Iron Binding Capacity 268 mcg/dL (250-450)
[2017-08-31] MEDS ORDERED: NON-FORMULARY (Folic Acid [Folic Acid] 1 MG) PO SCH (13:00)
--- NOTE | 2017-08-31 13:11 | Progress Note ---
Assessment and Plan Right lower extremity DVT and PE. At this point patient has no contraindication to anticoagulation. I would recommend starting her on heparin drip. If she tolerates anticoagulation and her hemoglobin remains stable there is no indication for IVC filter placement at this time. She probably had provoked DVT due to bed rest caused by back pain. Although, her sister had also some blood clots therefore patient may have underlying hematologic disorder, especially with lupus makes it most likely the case. Recommend hematology consult to define length of anticoagulation. IVC filter placement in this category of patients is not recommended. Subjective Date of service: 08/31/17 Principal diagnosis: PE/DVT Interval history: PAtient has been tolerating anticoagulation. She gets SOB with ambulation, but able to get OOB. Objective - Exam Narrative Exam: no right LE pain with ambulation - Constitutional Vitals: Vital Signs - 12hr 08/31/17 08/31/17 08/31/17 04:58 08:40 11:27 Temperature 98.2 F 98.2 F 98.7 F Pulse Rate 104 H 103 H 107 H Respiratory 18 19 18 Rate Blood Pressure 138/83 139/73 Blood Pressure 119/68 [Left] O2 Sat by Pulse 97 98 96 Oximetry - Labs CBC & Chem 7: 08/31/17 10:57 08/30/17 04:51 Labs: Abnormal lab results 08/30/17 08/30/17 08/30/17 Range/Units 12:14 17:10 19:10 Hgb (10.1-14.3) gm/dl Hct (30.3-42.9) % APTT 38.0 H (24.2-36.6) Sec. Heparin Anti-Xa Level (0.3-0.7) U.I./ml POC Glucose 202 H 394 H (70-105) Hemoglobin A1c (4-6) % 08/30/17 08/31/17 08/31/17 Range/Units 20:54 03:38 10:57 Hgb 8.8 L (10.1-14.3) gm/dl Hct 27.0 L (30.3-42.9) % APTT (24.2-36.6) Sec. Heparin Anti-Xa Level 2.00 H (0.3-0.7) U.I./ml POC Glucose 408 H (70-105) Hemoglobin A1c (4-6) % 08/31/17 Range/Units 10:57 Hgb (10.1-14.3) gm/dl Hct (30.3-42.9) % APTT (24.2-36.6) Sec. Heparin Anti-Xa Level (0.3-0.7) U.I./ml POC Glucose (70-105) Hemoglobin A1c 8.7 H (4-6) %
--- NOTE | 2017-08-31 15:05 | Progress Note ---
Assessment and Plan /Near syncope CT head with no acute finding likely from medication induced hypotension Abnormal ECG with Interval development of poor R wave progression in the precordial leads and T wave inversion in the inferior leads Preserved EF on 2d echo /Anemia - will monitor H and H - anemia work up was normal, stool for occult blood pending /Acute pulmonary embolism Lovenox weight base initiated, transitioned to heparin IR consulted requested for possible IVC Filter, but she is not a candidate for that Has strong Fam HX of [place]/DVT, need further hematology f/u, could be done outpt will start on eliquis again /IDDM (insulin dependent diabetes mellitus) Cont home Insulin and SSI coverage. ADA diet /HTN (hypertension) hold all BP meds for now /h/o lupus on low dose steroid got one dose of solumedrol 125mg iv for hypotension as a stress dose Dvt Px -on eliquis Subjective Date of service: 08/31/17 Principal diagnosis: PE/DVT Interval history: Patient seen and examined. Medical records and medication list reviewed. No acute event overnight noted by the RN. Patient denies any chest pain or difficulty breathing. Patient is tolerating diet. Discussed plan of care at bedside with patient. Objective - Exam Narrative Exam: GENERAL: Elderly obese -[place] female lying on bed appeared to be in no discomfort. HEENT: Normocephalic. Atraumatic. No conjunctival congestion or icterus. Patient has moist mucous membranes. NECK: Supple. Trachea midline. CHEST/LUNGS: Clear to auscultated bilaterally, breathing nonlabored. No wheezes crackles or rhonchi. HEART/CARDIOVASCULAR: Regular in rate and rhythm. S1 and S2 positive. ABDOMEN: Abdomen is soft, nontender. Patient has normal bowel sounds. SKIN: There is no rash. Warm and dry. NEURO: No focal motor deficit. Follows command. MUSCULOSKELETAL: No joint effusion or tenderness. EXTRIMITY: No edema, no cyanosis or clubbing. PSYCH: Cooperative. - Constitutional Vitals: Vital Signs - 12hr 08/31/17 08/31/17 08/31/17 04:58 08:40 11:27 Temperature 98.2 F 98.2 F 98.7 F Pulse Rate 104 H 103 H 107 H Respiratory 18 19 18 Rate Blood Pressure 138/83 139/73 Blood Pressure 119/68 [Left] O2 Sat by Pulse 97 98 96 Oximetry - Labs CBC & Chem 7: 09/01/17 04:50 08/30/17 04:51 Labs: Abnormal lab results 08/30/17 08/30/17 08/30/17 Range/Units 12:14 17:10 19:10 Hgb (10.1-14.3) gm/dl Hct (30.3-42.9) % APTT 38.0 H (24.2-36.6) Sec. Heparin Anti-Xa Level (0.3-0.7) U.I./ml POC Glucose 202 H 394 H (70-105) Hemoglobin A1c (4-6) % 08/30/17 08/31/17 08/31/17 Range/Units 20:54 03:38 10:57 Hgb 8.8 L (10.1-14.3) gm/dl Hct 27.0 L (30.3-42.9) % APTT (24.2-36.6) Sec. Heparin Anti-Xa Level 2.00 H (0.3-0.7) U.I./ml POC Glucose 408 H (70-105) Hemoglobin A1c (4-6) % 08/31/17 08/31/17 Range/Units 10:57 13:16 Hgb (10.1-14.3) gm/dl Hct (30.3-42.9) % APTT (24.2-36.6) Sec. Heparin Anti-Xa Level 1.42 H (0.3-0.7) U.I./ml POC Glucose (70-105) Hemoglobin A1c 8.7 H (4-6) %
[2017-08-31] MEDS: ELIQUIS PO SCH (22:31)
[2017-08-31] MEDS: LEVEMIR SUB-Q SCH (22:33)
[2017-09-01 05:09] LABS: Hematocrit 25.6 % (30.3-42.9); Hemoglobin 8.1 gm/dl (10.1-14.3)
[2017-09-01 05:20] LABS: INR 1.31 (0.87-1.13)
[2017-09-01] MEDS: NEURONTIN PO SCH (08:11)
[2017-09-01] MEDS: NOVOLOG SUB-Q SCH ×2 (08:11→12:12)
[2017-09-01] MEDS: MAG-OX PO SCH (09:47)
[2017-09-01] MEDS: DELTASONE PO SCH (09:47)
[2017-09-01] MEDS: GLUCOTROL PO SCH (09:47)
[2017-09-01] MEDS: ELIQUIS PO SCH (09:47)
[2017-09-01] MEDS: DITROPAN PO SCH (09:48)
[2017-09-01] MEDS: PEPCID PO SCH (09:48)
[2017-09-01] MEDS ORDERED: FOLVITE PO SCH (10:00)
[2017-09-01] MEDS ORDERED: NOVOLOG SUB-Q SCH (11:30)
[2017-09-01] MEDS ORDERED: NORVASC PO SCH (12:00)
[2017-09-01 12:17] VITALS: BP 130/78
--- NOTE | 2017-09-01 12:42 | Progress Note ---
Assessment and Plan Near syncope secondary to hypotension Hx of PE/DVT on eliquis therapy as an outpatient Hypertension Obesity DM Rheumatoid arthritis normal perfusion MPI 10/2016 normal LV systolic function, EF 55-60% on echocardiogram this admission. Subjective Date of service: 09/01/17 Principal diagnosis: PE/DVT Interval history: Patient has no complaints. Noted hemoglobin and hematocrit trending downwards. Objective Vital Signs Temp Pulse Pulse Resp Resp BP BP 09/01/17 12:17 103 H 130/78 09/01/17 11:11 98.6 F 103 H 18 130/76 09/01/17 10:22 09/01/17 08:13 98.7 F 84 18 153/84 09/01/17 05:02 98.7 F 100 H 18 118/49 09/01/17 00:05 98.1 F 89 18 128/77 08/31/17 23:39 89 18 08/31/17 22:00 90 18 18 08/31/17 19:35 98.6 F 103 H 18 140/65 08/31/17 19:16 104 H 18 08/31/17 19:03 101 H 08/31/17 16:07 98.2 F 96 H 18 129/74 Pulse Ox 09/01/17 12:17 09/01/17 11:11 99 09/01/17 10:22 97 09/01/17 08:13 99 09/01/17 05:02 99 09/01/17 00:05 98 08/31/17 23:39 99 08/31/17 22:00 08/31/17 19:35 97 08/31/17 19:16 98 08/31/17 19:03 08/31/17 16:07 99 - Physical Examination General: No Apparent Distress HEENT: Positive: PERRL Neck: Positive: trachea midline Cardiac: Positive: Reg Rate and Rhythm Lungs: Positive: Decreased Breath Sounds Neuro: Positive: Grossly Intact Extremities: Absent: edema - Labs and Meds Coagulation 09/01/17 Range/Units 04:52 PT 16.9 H (12.2-14.9) Sec. INR 1.31 H (0.87-1.13) CBC 09/01/17 Range/Units 04:50 Hgb 8.1 L (10.1-14.3) gm/dl Hct 25.6 L (30.3-42.9) % Plt Count 296 (140-440) K/mm3
--- NOTE | 2017-09-01 13:35 | Discharge Summary ---
Providers - Providers Date of Admission: 08/29/17 14:16 Date of discharge: 09/01/17 Attending physician: KELLY EDWARDS 08/29/17 19:09 Consult to Dietitian/Nutrition [CONS] Routine Physician Instructions: Reason For Exam: Reason for Consult: Diet education 08/29/17 21:46 Consult to Physician [CONS] Routine Consulting Provider: JUAN F BERMUDEZ Reason For Exam: PE for IVC filter Place consult to:: vascular Notified:: a service Phone number called:: [phone] Was contact made?: Yes If yes, spoke with:: sudhir Time called:: 08:17 Primary care physician: [employer] Hospitalization Condition: Fair Hospital course: Discharge diagnosis and management: /Near syncope CT head with no acute finding likely from medication induced hypotension Abnormal ECG with Interval development of poor R wave progression in the precordial leads and T wave inversion in the inferior leads Preserved EF on 2d echo /Anemia - Monitored H and H - anemia work up was normal, stool for occult blood was negative /Acute pulmonary embolism Lovenox weight base initiated, transitioned to heparin IR consulted requested for possible IVC Filter, but she is not a candidate for that Has strong Fam HX of [place]/DVT, need further hematology f/u, could be done outpt will start on eliquis again /IDDM (insulin dependent diabetes mellitus) Cont home Insulin and SSI coverage. ADA diet /HTN (hypertension) hold all BP meds for now /h/o lupus on low dose steroid got one dose of solumedrol 125mg iv for hypotension as a stress dose Dvt Px -on eliquis Disposition: DC-01 TO HOME OR SELFCARE Time spent for discharge: 32 minutes Exam - Physical Exam Narrative exam: GENERAL: Elderly obese -[place] female lying on bed appeared to be in no discomfort. HEENT: Normocephalic. Atraumatic. No conjunctival congestion or icterus. Patient has moist mucous membranes. NECK: Supple. Trachea midline. CHEST/LUNGS: Clear to auscultated bilaterally, breathing nonlabored. No wheezes crackles or rhonchi. HEART/CARDIOVASCULAR: Regular in rate and rhythm. S1 and S2 positive. ABDOMEN: Abdomen is soft, nontender. Patient has normal bowel sounds. SKIN: There is no rash. Warm and dry. NEURO: No focal motor deficit. Follows command. MUSCULOSKELETAL: No joint effusion or tenderness. EXTRIMITY: No edema, no cyanosis or clubbing. PSYCH: Cooperative. - Constitutional Vitals: Temp Pulse Resp BP Pulse Ox 98.6 F 103 H 18 130/78 99 09/01/17 11:11 09/01/17 12:17 09/01/17 11:11 09/01/17 12:17 09/01/17 11:11 Plan Activity: advance as tolerated Weight Bearing Status: Weight Bear as Tolerated Diet: low fat, low salt, diabetic Additional Instructions: f/u with cardiology in one week. Out patient hematology f/u for further antocoagulation duration. Follow up with: PRIMARY CARE, [Primary Care Provider] - 3-5 Days Prescriptions: Amlodipine Besylate [Norvasc] 10 mg PO QDAY #30 tablet Apixaban [Eliquis] 5 mg PO Q12HR #60 tablet
[2017-09-07] MEDS ORDERED: VITAMIN D2 PO SCH (10:00)
[2017-09-07] MEDS ORDERED: ELIQUIS PO SCH (22:00)
== END 2017-09-01 15:02 | disposition home or self-care (01) | DRG 176 ==
LOC: ED 11:06 → 4A 14:16
PROVIDERS: ADMIT Internal Medicine; ATTEND Internal Medicine
DX: I26.99 Other pulmonary embolism without acute cor pulmonale (principal); I82.491 Acute embolism and thrombosis of other specified deep vein of right lower extremity; L97.919 Non-pressure chronic ulcer of unspecified part of right lower leg with unspecified severity; Z68.42 Body mass index [BMI] 45.0-49.9, adult; I95.2 Hypotension due to drugs; I10 Essential (primary) hypertension; D64.9 Anemia, unspecified; K21.9 Gastro-esophageal reflux disease without esophagitis; G43.909 Migraine, unspecified, not intractable, without status migrainosus; R94.31 Abnormal electrocardiogram [ECG] [EKG]; E05.90 Thyrotoxicosis, unspecified without thyrotoxic crisis or storm; E66.9 Obesity, unspecified; E11.622 Type 2 diabetes mellitus with other skin ulcer; T50.995A Adverse effect of other drugs, medicaments and biological substances, initial encounter; M32.9 Systemic lupus erythematosus, unspecified; M06.9 Rheumatoid arthritis, unspecified; Z79.4 Long term (current) use of insulin; Z79.899 Other long term (current) drug therapy; Z79.01 Long term (current) use of anticoagulants; Z88.0 Allergy status to penicillin; Z88.1 Allergy status to other antibiotic agents; Z91.040 Latex allergy status; Y92.89 Other specified places as the place of occurrence of the external cause
CPT/HCPCS: 36415; 71020; 80048; 80053; 82270; 82607; 82747; 82962; 83036; 83550; 84484; 85014; 85018; 85025; 85049; 85520; 85610; 85730; 90686; 93005; 93010; 93306; J1644; J1650; J1815; J1818; J2930; J7030; J7512

== ENCOUNTER 2017-09-12 07:55 | Outpatient (CLI) | payer MEDICARE ==
[2017-09-12] MEDS ORDERED: XYLOCAINE TOPICAL 4% TP ONE ×2 (08:21→08:23)
== END 2017-09-12 07:56 | disposition home or self-care (01) ==
LOC: WOUND 07:55
PROVIDERS: ATTEND Podiatrist
DX: E11.622 Type 2 diabetes mellitus with other skin ulcer (principal); L97.822 Non-pressure chronic ulcer of other part of left lower leg with fat layer exposed; E11.40 Type 2 diabetes mellitus with diabetic neuropathy, unspecified; I10 Essential (primary) hypertension; M06.9 Rheumatoid arthritis, unspecified; I73.9 Peripheral vascular disease, unspecified; Z87.891 Personal history of nicotine dependence

== ENCOUNTER 2017-09-19 08:04 | Outpatient (CLI) | payer MEDICARE ==
[2017-09-19] MEDS ORDERED: XYLOCAINE TOPICAL 4% TP ONE (08:31)
== END 2017-09-19 08:05 | disposition home or self-care (01) ==
LOC: WOUND 08:04
PROVIDERS: ATTEND Podiatrist
DX: E11.622 Type 2 diabetes mellitus with other skin ulcer (principal); L97.822 Non-pressure chronic ulcer of other part of left lower leg with fat layer exposed; E11.40 Type 2 diabetes mellitus with diabetic neuropathy, unspecified; I10 Essential (primary) hypertension; M06.9 Rheumatoid arthritis, unspecified; Z87.891 Personal history of nicotine dependence
CPT/HCPCS: 99213; G0463

== ENCOUNTER 2018-04-16 11:14 | Emergency (ER) | payer MEDICARE ==
[2018-04-16 11:46] LABS: Basophils # (Auto) 0.1 K/mm3 (0.0-0.1); Eosinophils # (Auto) 0.3 K/mm3 (0.0-0.4); Hematocrit 30.5 % (30.3-42.9); Hemoglobin 9.8 gm/dl (10.1-14.3); Lymphocytes % (Auto) 23.6 % (13.4-35.0); Mean Corpuscular HGB Conc 32 % (30-34); Mean Corpuscular Hemoglobin 27 pg (28-32); Mean Corpuscular Volume 84 fl (79-97); Monocytes # (Auto) 0.6 K/mm3 (0.0-0.8); Monocytes % (Auto) 6.9 % (0.0-7.3); Platelet Count 306 K/mm3 (140-440); Red Blood Count 3.62 M/mm3 (3.65-5.03); Red Cell Distribution Width 18.4 % (13.2-15.2)
[2018-04-16 12:24] LABS: Bilirubin,Urine NEG (Negative); Blood,Urine SM (Negative); Color,Urine Yellow (Yellow); Mucus,Urine FEW /HPF; Protein,Urine <15 mg/dL mg/dL (Negative); Urobilinogen,Urine < 2.0 mg/dL (<2.0)
[2018-04-16 12:34] LABS: Alanine Aminotransferase 14 units/L (7-56); Albumin 3.6 g/dL (3.9-5); BUN/Creatinine Ratio 19; Blood Urea Nitrogen 15 mg/dL (7-17); Calcium 9.8 mg/dL (8.4-10.2); Hemolysis Index 0
[2018-04-16] MEDS ORDERED: ZOFRAN ODT PO ONE (14:01)
[2018-04-16] MEDS ORDERED: NORCO 5/325 PO ONE (14:01)
--- NOTE | 2018-04-16 14:06 | Emergency Department Report ---
ED Abdominal Pain HPI - General Chief Complaint: Abdominal Pain Stated Complaint: RIGHT SIDE ABD PAIN Time Seen by Provider: 04/16/18 13:57 Source: patient Mode of arrival: Wheelchair Limitations: No Limitations - History of Present Illness Initial Comments: Patient is a 52-year-old female who is complaining of some lower abdominal discomfort right greater than left with some radiation to the lower back the past 2 weeks. Patient states there has been some discomfort when she urinates as well. Patient does have urinary frequency. Patient denies fever but has had some nausea with several episodes of vomiting. Patient denies diarrhea. Patient states the pain is a 10 out of 10 in severity and is achy. - Related Data Home Medications Medication Instructions Recorded Confirmed Last Taken Ergocalciferol [Vitamin D2] 1 cap PO QWEEK 08/29/17 08/29/17 08/25/17 06:30 Gabapentin [Neurontin] 300 mg PO TID 08/29/17 08/29/17 08/29/17 06:30 Insulin Aspart [NovoLOG Flexpen] See Protocol SUB-Q TID 08/29/17 08/29/17 Unknown Insulin Glargine,Hum.rec.anlog 30 units SUB-Q DAILY 08/29/17 08/29/17 08/29/17 06:30 [Lantus Solostar] Leflunomide [Arava] 10 mg PO QDAY 08/29/17 08/29/17 08/28/17 13:45 Magnesium Oxide [Bennett] 500 mg PO BID 08/29/17 08/29/17 08/29/17 06:30 glipiZIDE [Glipizide] 10 mg PO DAILY 08/29/17 08/29/17 08/28/17 13:45 Previous Rx's Medication Instructions Recorded Last Taken Type Folic Acid 1 mg PO QDAY #30 capsule 11/02/16 08/29/17 13:45 Rx Oxybutynin [Ditropan] 5 mg PO BID #60 tablet 11/02/16 08/29/17 06:30 Rx predniSONE [Deltasone] 10 mg PO QDAY #30 tablet 11/02/16 08/29/17 06:30 Rx Amlodipine Besylate [Norvasc] 10 mg PO QDAY #30 tablet 09/01/17 Unknown Rx Apixaban [Eliquis] 5 mg PO Q12HR #60 tablet 09/01/17 Unknown Rx Ciprofloxacin HCl [Cipro] 500 mg PO BID #14 tablet 04/16/18 Unknown Rx HYDROcodone/APAP 5-325 [[place] 1 each PO Q4HR PRN #12 tablet 04/16/18 Unknown Rx 5/325] Nitrofurantoin Monohyd/M-Cryst 100 mg PO BID #14 capsule 04/16/18 Unknown Rx [Macrobid 100 mg Capsule] Ondansetron [Zofran Odt] 4 mg PO Q8HR PRN #10 tab.rapdis 04/16/18 Unknown Rx Allergies Allergy/AdvReac Type Severity Reaction Status Date / Time latex Allergy Rash Verified 04/07/14 07:52 Sulfa (Sulfonamide Allergy Unknown Verified 10/31/16 08:29 Antibiotics) Penicillins AdvReac Itching Verified 11/18/14 12:54 ED Review of Systems ROS: Stated complaint: RIGHT SIDE ABD PAIN Other details as noted in HPI Comment: All other systems reviewed and negative ED Past Medical Hx - Past Medical History Hx Hypertension: Yes Hx Heart Attack/AMI: No Hx Diabetes: Yes Hx GERD: Yes (2010) Hx Renal Disease: No Hx Arthritis: Yes Hx Headaches / Migraines: Yes Hx Asthma: Yes Hx COPD: No Additional medical history: lupus, compressed disc, hyperthyroidism, rheumatoid arthritis, DVT/PE - Surgical History Hx Coronary Stent: Yes Hx Pacemaker: No Hx Internal Defibrillator: No Additional Surgical History: ectopic , D&C x 3. - Social History Smoking Status: Never Smoker Substance Use Type: Alcohol - Medications Home Medications: Home Medications Medication Instructions Recorded Confirmed Last Taken Type Folic Acid 1 mg PO QDAY #30 capsule 11/02/16 08/29/17 08/29/17 13:45 Rx Oxybutynin [Ditropan] 5 mg PO BID #60 tablet 11/02/16 08/29/17 08/29/17 06:30 Rx predniSONE [Deltasone] 10 mg PO QDAY #30 tablet 11/02/16 08/29/17 08/29/17 06: 30 Rx Ergocalciferol [Vitamin D2] 1 cap PO QWEEK 08/29/17 08/29/17 08/25/17 06:30 History Gabapentin [Neurontin] 300 mg PO TID 08/29/17 08/29/17 08/29/17 06:30 History Insulin Aspart [NovoLOG Flexpen] See Protocol SUB-Q TID 08/29/17 08/29/17 Unknown History Insulin Glargine,Hum.rec.anlog 30 units SUB-Q DAILY 08/29/17 08/29/17 08/29/17 06:30 History [Lantus Solostar] Leflunomide [Arava] 10 mg PO QDAY 08/29/17 08/29/17 08/28/17 13:45 History Magnesium Oxide [Bennett] 500 mg PO BID 08/29/17 08/29/17 08/29/17 06:30 History glipiZIDE [Glipizide] 10 mg PO DAILY 08/29/17 08/29/17 08/28/17 13:45 History Amlodipine Besylate [Norvasc] 10 mg PO QDAY #30 tablet 09/01/17 Unknown Rx Apixaban [Eliquis] 5 mg PO Q12HR #60 tablet 09/01/17 Unknown Rx Ciprofloxacin HCl [Cipro] 500 mg PO BID #14 tablet 04/16/18 Unknown Rx HYDROcodone/APAP 5-325 [[place] 1 each PO Q4HR PRN #12 tablet 04/16/18 Unknown Rx 5/325] Nitrofurantoin Monohyd/M-Cryst 100 mg PO BID #14 capsule 04/16/18 Unknown Rx [Macrobid 100 mg Capsule] Ondansetron [Zofran Odt] 4 mg PO Q8HR PRN #10 tab.rapdis 04/16/18 Unknown Rx ED Physical Exam - General Limitations: No Limitations General appearance: alert, in no apparent distress - Head Head exam: Present: atraumatic, normocephalic - Eye Eye exam: Present: normal appearance - ENT ENT exam: Present: mucous membranes moist - Neck Neck exam: Present: normal inspection - Respiratory Respiratory exam: Present: normal lung sounds bilaterally. Absent: respiratory distress, wheezes, rales - Cardiovascular Cardiovascular Exam: Present: regular rate, normal rhythm. Absent: systolic murmur, diastolic murmur, rubs, gallop - GI/Abdominal GI/Abdominal exam: Present: soft, tenderness (right lower quadrant /suprapubic) , normal bowel sounds. Absent: distended, guarding, rebound, rigid - Extremities Exam Extremities exam: Present: normal inspection - Back Exam Back exam: Present: normal inspection - Neurological Exam Neurological exam: Present: alert, oriented X3 - Psychiatric Psychiatric exam: Present: normal affect, normal mood - Skin Skin exam: Present: warm, dry, intact, normal color. Absent: rash ED Course Vital Signs 04/16/18 11:19 Temperature 98.3 F Pulse Rate 86 Respiratory 17 Rate Blood Pressure 166/93 O2 Sat by Pulse 97 Oximetry ED Medical Decision Making - Lab Data Result diagrams: 04/16/18 11:26 04/16/18 11:26 Lab Results 04/16/18 04/16/18 04/16/18 Range/Units 11:26 11:26 11:26 WBC 8.3 (4.5-11.0) K/mm3 RBC 3.62 L (3.65-5.03) M/mm3 Hgb 9.8 L (10.1-14.3) gm/dl Hct 30.5 (30.3-42.9) % MCV 84 (79-97) fl MCH 27 L (28-32) pg MCHC 32 (30-34) % RDW 18.4 H (13.2-15.2) % Plt Count 306 (140-440) K/mm3 Lymph % (Auto) 23.6 (13.4-35.0) % [place] % (Auto) 6.9 (0.0-7.3) % Eos % (Auto) 3.0 (0.0-4.3) % Baso % (Auto) 1.0 (0.0-1.8) % Lymph # 2.0 (1.2-5.4) K/mm3 [place] # 0.6 (0.0-0.8) K/mm3 Eos # 0.3 (0.0-0.4) K/mm3 Baso # 0.1 (0.0-0.1) K/mm3 Seg Neutrophils % 65.5 (40.0-70.0) % Seg Neutrophils # 5.4 (1.8-7.7) K/mm3 Sodium 142 (137-145) mmol/L Potassium 3.9 (3.6-5.0) mmol/L Chloride 103.6 (98-107) mmol/L Carbon Dioxide 27 (22-30) mmol/L Anion Gap 15 mmol/L BUN 15 (7-17) mg/dL Creatinine 0.8 (0.7-1.2) mg/dL Estimated GFR > 60 ml/min BUN/Creatinine Ratio 19 % Glucose 143 H (65-100) mg/dL Calcium 9.8 (8.4-10.2) mg/dL Total Bilirubin 0.40 (0.1-1.2) mg/dL AST 10 (5-40) units/L ALT 14 (7-56) units/L Alkaline Phosphatase 59 (35-129) units/L Total Protein 7.1 (6.3-8.2) g/dL Albumin 3.6 L (3.9-5) g/dL Albumin/Globulin Ratio 1.0 % HCG, Qual Negative (Negative) Urine Color (Yellow) Urine Turbidity (Clear) Urine pH (5.0-7.0) Ur Specific [place] (1.003-1.030) Urine Protein (Negative) mg/dL Urine Glucose (UA) (Negative) mg/dL Urine Ketones (Negative) mg/dL Urine Blood (Negative) Urine Nitrite (Negative) Urine Bilirubin (Negative) Urine Urobilinogen (<2.0) mg/dL Ur Leukocyte Esterase (Negative) Urine WBC (Auto) (0.0-6.0) /HPF Urine RBC (Auto) (0.0-6.0) /HPF U Epithel Cells (Auto) (0-13.0) /HPF Urine Mucus /HPF 07/05/18 Range/Units 11:27 WBC (4.5-11.0) K/mm3 RBC (3.65-5.03) M/mm3 Hgb (10.1-14.3) gm/dl Hct (30.3-42.9) % MCV (79-97) fl MCH (28-32) pg MCHC (30-34) % RDW (13.2-15.2) % Plt Count (140-440) K/mm3 Lymph % (Auto) (13.4-35.0) % [place] % (Auto) (0.0-7.3) % Eos % (Auto) (0.0-4.3) % Baso % (Auto) (0.0-1.8) % Lymph # (1.2-5.4) K/mm3 [place] # (0.0-0.8) K/mm3 Eos # (0.0-0.4) K/mm3 Baso # (0.0-0.1) K/mm3 Seg Neutrophils % (40.0-70.0) % Seg Neutrophils # (1.8-7.7) K/mm3 Sodium (137-145) mmol/L Potassium (3.6-5.0) mmol/L Chloride (98-107) mmol/L Carbon Dioxide (22-30) mmol/L Anion Gap mmol/L BUN (7-17) mg/dL Creatinine (0.7-1.2) mg/dL Estimated GFR ml/min BUN/Creatinine Ratio % Glucose (65-100) mg/dL Calcium (8.4-10.2) mg/dL Total Bilirubin (0.1-1.2) mg/dL AST (5-40) units/L ALT (7-56) units/L Alkaline Phosphatase (35-129) units/L Total Protein (6.3-8.2) g/dL Albumin (3.9-5) g/dL Albumin/Globulin Ratio % HCG, Qual (Negative) Urine Color Yellow (Yellow) Urine Turbidity Clear (Clear) Urine pH 7.0 (5.0-7.0) Ur Specific [place] 1.010 (1.003-1.030) Urine Protein <15 mg/dl (Negative) mg/dL Urine Glucose (UA) Neg (Negative) mg/dL Urine Ketones Neg (Negative) mg/dL Urine Blood Sm (Negative) Urine Nitrite Neg (Negative) Urine Bilirubin Neg (Negative) Urine Urobilinogen < 2.0 (<2.0) mg/dL Ur Leukocyte Esterase Mod (Negative) Urine WBC (Auto) 7.0 H (0.0-6.0) /HPF Urine RBC (Auto) 2.0 (0.0-6.0) /HPF U Epithel Cells (Auto) 3.0 (0-13.0) /HPF Urine Mucus Few /HPF - Medical Decision Making Patient will be treated for urinary tract infection be discharged home Critical care attestation.: If time is entered above; I have spent that time in minutes in the direct care of this critically ill patient, excluding procedure time. ED Disposition Clinical Impression: Acute cystitis Disposition: DC-01 TO HOME OR SELFCARE Is pt being admited?: No Does the pt Need Aspirin: No Condition: Stable Instructions: Abdominal Pain (ED), Urinary Tract Infection in Women (ED) Prescriptions: Ciprofloxacin HCl [Cipro] 500 mg PO BID #14 tablet HYDROcodone/APAP 5-325 [[place] 5/325] 1 each PO Q4HR PRN #12 tablet PRN Reason: Pain Nitrofurantoin Monohyd/M-Cryst [Macrobid 100 mg Capsule] 100 mg PO BID #14 capsule Ondansetron [Zofran Odt] 4 mg PO Q8HR PRN #10 tab.rapdis PRN Reason: Nausea And Vomiting Referrals: JUAN F RUSH MD [Primary Care Provider] - 3-5 Days
[2018-04-16 14:21] VITALS: BP 126/76
== END 2018-04-16 14:19 | disposition home or self-care (01) ==
LOC: ED 11:14
DX: N30.00 Acute cystitis without hematuria (principal); I10 Essential (primary) hypertension; E11.9 Type 2 diabetes mellitus without complications; K21.9 Gastro-esophageal reflux disease without esophagitis; J45.909 Unspecified asthma, uncomplicated; G43.909 Migraine, unspecified, not intractable, without status migrainosus; E05.80 Other thyrotoxicosis without thyrotoxic crisis or storm; M06.9 Rheumatoid arthritis, unspecified; I82.409 Acute embolism and thrombosis of unspecified deep veins of unspecified lower extremity; Z98.890 Other specified postprocedural states; Z91.040 Latex allergy status; Z88.0 Allergy status to penicillin; Z88.2 Allergy status to sulfonamides; Z79.4 Long term (current) use of insulin; Z79.899 Other long term (current) drug therapy
CPT/HCPCS: 36415; 80053; 81001; 84703; 85025; 99283; Q0162

== ENCOUNTER 2018-10-30 08:00 | Emergency (ER) | payer MEDICARE ==
[2018-10-30] MEDS ORDERED: NACL 0.9% 1000 ML 1,000 ML IV ONE (09:15)
[2018-10-30] MEDS ORDERED: MORPHINE IV ONE (09:15)
[2018-10-30] MEDS ORDERED: ZOFRAN IV ONE (09:15)
[2018-10-30] MEDS ORDERED: SOLU-Medrol IV ONE (09:16)
[2018-10-30] MEDS ORDERED: MORPHINE ONE (09:45)
[2018-10-30 09:48] LABS: Basophils % (Auto) 0.4 % (0.0-1.8); Eosinophils # (Auto) 0.1 K/mm3 (0.0-0.4); Eosinophils % (Auto) 0.6 % (0.0-4.3); Hematocrit 31.5 % (30.3-42.9); Hemoglobin 10.3 gm/dl (10.1-14.3); Lymphocytes # (Auto) 1.4 K/mm3 (1.2-5.4); Lymphocytes % (Auto) 12.7 % (13.4-35.0); Mean Corpuscular HGB Conc 33 % (30-34); Mean Corpuscular Volume 85 fl (79-97); Monocytes # (Auto) 1.1 K/mm3 (0.0-0.8); Monocytes % (Auto) 10.5 % (0.0-7.3); Platelet Count 358 K/mm3 (140-440); Red Blood Count 3.71 M/mm3 (3.65-5.03); Red Cell Distribution Width 17.9 % (13.2-15.2)
--- NOTE | 2018-10-30 09:55 | Emergency Department Report ---
ED General Adult HPI - General Chief complaint: Pain General Stated complaint: BODY PAIN/FEVER Time Seen by Provider: 10/30/18 08:53 Source: patient, family Mode of arrival: Wheelchair Limitations: No Limitations - History of Present Illness Initial comments: Patient presents to the emergency department with a chief complaint of body aches and fever for the last 3 days. Patient is also concerned about shaking that has become worse over the last couple days. Patient has a history of lupus and arthritis. Patient also takes gabapentin 3 times daily for her body aches. Patient denies chest pain, shortness of breath, abdominal pain, numbness, facial droop, slurred speech. -: Gradual Radiation: non-radiation Severity scale (0 -10): 6 Quality: aching Consistency: constant Improves with: none Worsens with: none Associated Symptoms: denies other symptoms Treatments Prior to Arrival: none - Related Data Home Medications Medication Instructions Recorded Confirmed Last Taken Ergocalciferol [Vitamin D2] 1 cap PO QWEEK 08/29/17 08/29/17 08/25/17 06:30 Gabapentin [Neurontin] 300 mg PO TID 08/29/17 08/29/17 08/29/17 06:30 Insulin Aspart [NovoLOG Flexpen] See Protocol SUB-Q TID 08/29/17 08/29/17 Unknown Insulin Glargine,Hum.rec.anlog 30 units SUB-Q DAILY 08/29/17 08/29/17 08/29/17 06:30 [Lantus Solostar] Leflunomide [Arava] 10 mg PO QDAY 08/29/17 08/29/17 08/28/17 13:45 Magnesium Oxide [Bennett] 500 mg PO BID 08/29/17 08/29/17 08/29/17 06:30 glipiZIDE [Glipizide] 10 mg PO DAILY 08/29/17 08/29/17 08/28/17 13:45 Previous Rx's Medication Instructions Recorded Last Taken Type Folic Acid 1 mg PO QDAY #30 capsule 11/02/16 08/29/17 13:45 Rx Oxybutynin [Ditropan] 5 mg PO BID #60 tablet 11/02/16 08/29/17 06:30 Rx predniSONE [Deltasone] 10 mg PO QDAY #30 tablet 11/02/16 08/29/17 06:30 Rx Amlodipine Besylate [Norvasc] 10 mg PO QDAY #30 tablet 09/01/17 Unknown Rx Apixaban [Eliquis] 5 mg PO Q12HR #60 tablet 09/01/17 Unknown Rx Ciprofloxacin HCl [Cipro] 500 mg PO BID #14 tablet 04/16/18 Unknown Rx HYDROcodone/APAP 5-325 [[place] 1 each PO Q4HR PRN #12 tablet 04/16/18 Unknown Rx 5/325] Nitrofurantoin Monohyd/M-Cryst 100 mg PO BID #14 capsule 04/16/18 Unknown Rx [Macrobid 100 mg Capsule] Ondansetron [Zofran Odt] 4 mg PO Q8HR PRN #10 tab.rapdis 04/16/18 Unknown Rx HYDROcodone/APAP 5-325 [[place] 1 each PO Q6HR PRN #8 tablet 10/30/18 Unknown Rx 5/325] Allergies Allergy/AdvReac Type Severity Reaction Status Date / Time latex Allergy Rash Verified 10/30/18 08:06 Sulfa (Sulfonamide Allergy Unknown Verified 10/30/18 08:06 Antibiotics) Penicillins AdvReac Itching Verified 10/30/18 08:06 ED Review of Systems ROS: Stated complaint: BODY PAIN/FEVER Other details as noted in HPI Comment: All other systems reviewed and negative Constitutional: denies: chills, fever Eyes: denies: eye pain, eye discharge, vision change ENT: denies: ear pain, throat pain Respiratory: denies: cough, shortness of breath, wheezing Cardiovascular: denies: chest pain, palpitations Endocrine: no symptoms reported Gastrointestinal: denies: abdominal pain, nausea, diarrhea Genitourinary: denies: urgency, dysuria, discharge Musculoskeletal: denies: back pain, joint swelling, arthralgia Skin: denies: rash, lesions Neurological: denies: headache, weakness, paresthesias Psychiatric: denies: anxiety, depression Hematological/Lymphatic: denies: easy bleeding, easy bruising ED Past Medical Hx - Past Medical History Hx Hypertension: Yes Hx Heart Attack/AMI: No Hx Diabetes: Yes Hx GERD: Yes (2010) Hx Renal Disease: No Hx Arthritis: Yes Hx Headaches / Migraines: Yes Hx Asthma: Yes Hx COPD: No Additional medical history: lupus, compressed disc, hyperthyroidism, rheumatoid arthritis, DVT/PE - Surgical History Hx Coronary Stent: Yes Hx Pacemaker: No Hx Internal Defibrillator: No Additional Surgical History: ectopic , D&C x 3. - Social History Smoking Status: Never Smoker Substance Use Type: None - Medications Home Medications: Home Medications Medication Instructions Recorded Confirmed Last Taken Type Folic Acid 1 mg PO QDAY #30 capsule 11/02/16 08/29/17 08/29/17 13:45 Rx Oxybutynin [Ditropan] 5 mg PO BID #60 tablet 11/02/16 08/29/17 08/29/17 06:30 Rx predniSONE [Deltasone] 10 mg PO QDAY #30 tablet 11/02/16 08/29/17 08/29/17 06:30 Rx Ergocalciferol [Vitamin D2] 1 cap PO QWEEK 08/29/17 08/29/17 08/25/17 06:30 History Gabapentin [Neurontin] 300 mg PO TID 08/29/17 08/29/17 08/29/17 06:30 History Insulin Aspart [NovoLOG Flexpen] See Protocol SUB-Q TID 08/29/17 08/29/17 Unknown History Insulin Glargine,Hum.rec.anlog 30 units SUB-Q DAILY 08/29/17 08/29/17 08/29/17 06:30 History [Lantus Solostar] Leflunomide [Arava] 10 mg PO QDAY 08/29/17 08/29/17 08/28/17 13:45 History Magnesium Oxide [Bennett] 500 mg PO BID 08/29/17 08/29/17 08/29/17 06:30 History glipiZIDE [Glipizide] 10 mg PO DAILY 08/29/17 08/29/17 08/28/17 13:45 History Amlodipine Besylate [Norvasc] 10 mg PO QDAY #30 tablet 09/01/17 Unknown Rx Apixaban [Eliquis] 5 mg PO Q12HR #60 tablet 09/01/17 Unknown Rx Ciprofloxacin HCl [Cipro] 500 mg PO BID #14 tablet 04/16/18 Unknown Rx HYDROcodone/APAP 5-325 [[place] 1 each PO Q4HR PRN #12 tablet 04/16/18 Unknown Rx 5/325] Nitrofurantoin Monohyd/M-Cryst 100 mg PO BID #14 capsule 04/16/18 Unknown Rx [Macrobid 100 mg Capsule] Ondansetron [Zofran Odt] 4 mg PO Q8HR PRN #10 tab.rapdis 04/16/18 Unknown Rx HYDROcodone/APAP 5-325 [[place] 1 each PO Q6HR PRN #8 tablet 10/30/18 Unknown Rx 5/325] ED Physical Exam - General Limitations: No Limitations General appearance: alert, in no apparent distress, other (patient has a tremor on exam of the right upper extremity and right leg) - Head Head exam: Present: atraumatic, normocephalic - Eye Eye exam: Present: normal appearance, PERRL, EOMI - ENT ENT exam: Present: mucous membranes dry - Neck Neck exam: Present: normal inspection - Respiratory Respiratory exam: Present: normal lung sounds bilaterally. Absent: respiratory distress, wheezes, rales - Cardiovascular Cardiovascular Exam: Present: regular rate, normal rhythm. Absent: systolic murmur, diastolic murmur, rubs, gallop - GI/Abdominal GI/Abdominal exam: Present: soft, normal bowel sounds. Absent: distended, tenderness - Extremities Exam Extremities exam: Present: normal inspection - Back Exam Back exam: Present: normal inspection - Neurological Exam Neurological exam: Present: alert, oriented X3, CN II-XII intact. Absent: motor sensory deficit - Psychiatric Psychiatric exam: Present: normal affect, normal mood - Skin Skin exam: Present: warm, dry, intact, normal color. Absent: rash ED Course Vital Signs 10/30/18 10/30/18 10/30/18 08:07 09:47 09:55 Temperature 97.8 F Pulse Rate 96 H 78 Respiratory 18 18 Rate Blood Pressure 139/83 Blood Pressure 140/72 [Right] O2 Sat by Pulse 97 94 98 Oximetry ED Medical Decision Making - Lab Data Result diagrams: 10/30/18 09:31 10/30/18 09:30 Lab Results 10/30/18 10/30/18 10/30/18 Range/Units 08:09 09:30 09:31 WBC 10.8 (4.5-11.0) K/mm3 RBC 3.71 (3.65-5.03) M/mm3 Hgb 10.3 (10.1-14.3) gm/dl Hct 31.5 (30.3-42.9) % MCV 85 (79-97) fl MCH 28 (28-32) pg MCHC 33 (30-34) % RDW 17.9 H (13.2-15.2) % Plt Count 358 (140-440) K/mm3 Lymph % (Auto) 12.7 L (13.4-35.0) % [place] % (Auto) 10.5 H (0.0-7.3) % Eos % (Auto) 0.6 (0.0-4.3) % Baso % (Auto) 0.4 (0.0-1.8) % Lymph # 1.4 (1.2-5.4) K/mm3 [place] # 1.1 H (0.0-0.8) K/mm3 Eos # 0.1 (0.0-0.4) K/mm3 Baso # 0.0 (0.0-0.1) K/mm3 Seg Neutrophils % 75.8 H (40.0-70.0) % Seg Neutrophils # 8.2 H (1.8-7.7) K/mm3 Sodium 140 (137-145) mmol/L Potassium 3.8 (3.6-5.0) mmol/L Chloride 103.1 (98-107) mmol/L Carbon Dioxide 24 (22-30) mmol/L Anion Gap 17 mmol/L BUN 11 (7-17) mg/dL Creatinine 0.9 (0.7-1.2) mg/dL Estimated GFR > 60 ml/min BUN/Creatinine Ratio 12 % Glucose 50 L (65-100) mg/dL POC Glucose 90 (70-105) Calcium 9.6 (8.4-10.2) mg/dL Total Bilirubin 0.60 (0.1-1.2) mg/dL AST 20 (5-40) units/L ALT 24 (7-56) units/L Alkaline Phosphatase 68 (35-129) units/L Total Creatine Kinase 44 (30-135) units/L Total Protein 7.3 (6.3-8.2) g/dL Albumin 3.5 L (3.9-5) g/dL Albumin/Globulin Ratio 0.9 % Lipase 16 (13-60) units/L Urine Color (Yellow) Urine Turbidity (Clear) Urine pH (5.0-7.0) Ur Specific [place] (1.003-1.030) Urine Protein (Negative) mg/dL Urine Glucose (UA) (Negative) mg/dL Urine Ketones (Negative) mg/dL Urine Blood (Negative) Urine Nitrite (Negative) Urine Bilirubin (Negative) Urine Urobilinogen (<2.0) mg/dL Ur Leukocyte Esterase (Negative) Urine WBC (Auto) Urine RBC (Auto) (0.0-6.0) /HPF U Epithel Cells (Auto) (0-13.0) /HPF Urine Bacteria (Auto) (Negative) /HPF 10/30/18 Range/Units Unknown WBC (4.5-11.0) K/mm3 RBC (3.65-5.03) M/mm3 Hgb (10.1-14.3) gm/dl Hct (30.3-42.9) % MCV (79-97) fl MCH (28-32) pg MCHC (30-34) % RDW (13.2-15.2) % Plt Count (140-440) K/mm3 Lymph % (Auto) (13.4-35.0) % [place] % (Auto) (0.0-7.3) % Eos % (Auto) (0.0-4.3) % Baso % (Auto) (0.0-1.8) % Lymph # (1.2-5.4) K/mm3 [place] # (0.0-0.8) K/mm3 Eos # (0.0-0.4) K/mm3 Baso # (0.0-0.1) K/mm3 Seg Neutrophils % (40.0-70.0) % Seg Neutrophils # (1.8-7.7) K/mm3 Sodium (137-145) mmol/L Potassium (3.6-5.0) mmol/L Chloride (98-107) mmol/L Carbon Dioxide (22-30) mmol/L Anion Gap mmol/L BUN (7-17) mg/dL Creatinine (0.7-1.2) mg/dL Estimated GFR ml/min BUN/Creatinine Ratio % Glucose (65-100) mg/dL POC Glucose (70-105) Calcium (8.4-10.2) mg/dL Total Bilirubin (0.1-1.2) mg/dL AST (5-40) units/L ALT (7-56) units/L Alkaline Phosphatase (35-129) units/L Total Creatine Kinase (30-135) units/L Total Protein (6.3-8.2) g/dL Albumin (3.9-5) g/dL Albumin/Globulin Ratio % Lipase (13-60) units/L Urine Color Straw (Yellow) Urine Turbidity Clear (Clear) Urine pH 6.0 (5.0-7.0) Ur Specific [place] 1.002 L (1.003-1.030) Urine Protein <15 mg/dl (Negative) mg/dL Urine Glucose (UA) Neg (Negative) mg/dL Urine Ketones Neg (Negative) mg/dL Urine Blood Neg (Negative) Urine Nitrite Neg (Negative) Urine Bilirubin Neg (Negative) Urine Urobilinogen < 2.0 (<2.0) mg/dL Ur Leukocyte Esterase Neg (Negative) Urine WBC (Auto) Not Reportable Urine RBC (Auto) < 1.0 (0.0-6.0) /HPF U Epithel Cells (Auto) 3.0 (0-13.0) /HPF Urine Bacteria (Auto) 1+ (Negative) /HPF - Medical Decision Making Discussed with patient over the side effects of gabapentin is tremors Patient improved with medications and IV fluids Discussed results with the patient Critical care attestation.: If time is entered above; I have spent that time in minutes in the direct care of this critically ill patient, excluding procedure time. ED Disposition Clinical Impression: Myalgia, Tremor, Lupus Disposition: DC- TO HOME OR SELFCARE Is pt being admited?: No Does the pt Need Aspirin: No Condition: Stable Instructions: Musculoskeletal Pain (ED) Additional Instructions: return if worse Prescriptions: HYDROcodone/APAP 5-325 [[place] 5/325] 1 each PO Q6HR PRN #8 tablet PRN Reason: Pain Referrals: PRIMARY CARE, [Primary Care Provider] - 3-5 Days [facility] [Provider Group] - 3-5 Days [facility] [Provider Group] - 3-5 Days Forms: Accompanied Note Time of Disposition: 10:44
[2018-10-30 09:56] VITALS: BP 140/72
[2018-10-30 09:58] LABS: Alanine Aminotransferase 24 units/L (7-56); Albumin 3.5 g/dL (3.9-5); BUN/Creatinine Ratio 12; Blood Urea Nitrogen 11 mg/dL (7-17); Calcium 9.6 mg/dL (8.4-10.2); Hemolysis Index 1
[2018-10-30 10:02] LABS: Bacteria,Urine 1+ /HPF (Negative); Bilirubin,Urine NEG (Negative); Blood,Urine NEG (Negative); Color,Urine Straw (Yellow); Protein,Urine <15 mg/dL mg/dL (Negative); RBC,Urine < 1.0 /HPF (0.0-6.0); Urobilinogen,Urine < 2.0 mg/dL (<2.0)
== END 2018-10-30 11:10 | disposition home or self-care (01) ==
LOC: ED 08:00
DX: M32.9 Systemic lupus erythematosus, unspecified (principal); R42 Dizziness and giddiness; I10 Essential (primary) hypertension; E11.9 Type 2 diabetes mellitus without complications; G43.909 Migraine, unspecified, not intractable, without status migrainosus; J45.909 Unspecified asthma, uncomplicated; M06.9 Rheumatoid arthritis, unspecified; Z86.718 Personal history of other venous thrombosis and embolism; Z86.711 Personal history of pulmonary embolism; Z91.040 Latex allergy status; Z88.2 Allergy status to sulfonamides; Z88.0 Allergy status to penicillin; Z79.4 Long term (current) use of insulin
CPT/HCPCS: 36415; 80053; 81001; 82550; 82962; 83690; 85025; 93005; 93010; 96361; 96374; 96375; 99283; J2270; J2405; J2930; J7030

== ENCOUNTER 2019-01-24 20:13 | Emergency (ER) | payer MEDICARE ==
--- NOTE | 2019-01-24 21:49 | Emergency Department Report ---
Chief Complaint: Pain General Stated Complaint: HIP/LEG PAIN Time Seen by Provider: 01/24/19 21:44 - HPI History of Present Illness: Pt states she presents to the ED for "sciatic nerve" pain in the right buttcheek that radiates down to the posterior right leg pt has been evaluated in the ED twice for this complaint went to see orthopedic and has a MRI scheduled pt was given hydrocodone by her orthopedic MSE screening note: Focused history and physical exam performed. ED Disposition for MSE Condition: Stable
--- NOTE | 2019-01-24 22:37 | Emergency Department Report ---
ED Back Pain/Injury HPI - General Chief Complaint: Pain General Stated Complaint: HIP/LEG PAIN Time Seen by Provider: 01/24/19 21:44 Source: patient Limitations: Physical Limitation - History of Present Illness Initial Comments: She is a 53-year-old female who looks much older than stated age coming in complaining of right hip pain that radiates down into her right leg. Patient was seen here recently for this and had an ultrasound of the lower extremity to rule out DVT. Patient also follows with her orthopedic doctor he was sending her for an MRI. The date of the MRI is pending. Patient is on [place] for this pain. She also reports that they have used prednisone and Flexeril for relief. Patient has had no new fall or trauma. She has a past medical history of diabet es, hypertension, rheumatoid arthritis, and obesity. Please see home med rec list. Patient is here with her who seems frustrated with the amount of pain that the patient has been having. Patient is well-known to our system in the EMR has been reviewed. MD Complaint: back pain -: year(s) Similar Symptoms Previously: Yes Place: home Consistency: constant Worsens With: movement Associated Symptoms: denies other symptoms - Related Data Home Medications Medication Instructions Recorded Confirmed Last Taken Ergocalciferol [Vitamin D2] 1 cap PO QWEEK 08/29/17 08/29/17 08/25/17 06:30 Gabapentin [Neurontin] 300 mg PO TID 08/29/17 08/29/17 08/29/17 06:30 Insulin Aspart [NovoLOG Flexpen] See Protocol SUB-Q TID 08/29/17 08/29/17 Unknown Insulin Glargine,Hum.rec.anlog 30 units SUB-Q DAILY 08/29/17 08/29/17 08/29/17 06:30 [Lantus Solostar] Leflunomide [Arava] 10 mg PO QDAY 08/29/17 08/29/17 08/28/17 13:45 Magnesium Oxide [Bennett] 500 mg PO BID 08/29/17 08/29/17 08/29/17 06:30 glipiZIDE [Glipizide] 10 mg PO DAILY 08/29/17 08/29/17 08/28/17 13:45 Previous Rx's Medication Instructions Recorded Last Taken Type Folic Acid 1 mg PO QDAY #30 capsule 11/02/16 08/29/17 13:45 Rx Oxybutynin [Ditropan] 5 mg PO BID #60 tablet 11/02/16 08/29/17 06:30 Rx predniSONE [Deltasone] 10 mg PO QDAY #30 tablet 11/02/16 08/29/17 06:30 Rx Amlodipine Besylate [Norvasc] 10 mg PO QDAY #30 tablet 09/01/17 Unknown Rx Apixaban [Eliquis] 5 mg PO Q12HR #60 tablet 09/01/17 Unknown Rx HYDROcodone/APAP 5-325 [[place] 1 each PO Q6HR PRN #8 tablet 10/30/18 Unknown Rx 5/325] Allergies Allergy/AdvReac Type Severity Reaction Status Date / Time latex Allergy Rash Verified 01/02/19 07:07 Sulfa (Sulfonamide Allergy Unknown Verified 01/02/19 07:07 Antibiotics) Penicillins AdvReac Itching Verified 01/02/19 07:07 ED Review of Systems ROS: Stated complaint: HIP/LEG PAIN Other details as noted in HPI Comment: All other systems reviewed and negative ED Past Medical Hx - Past Medical History lupus, compressed disc, hyperthyroidism, rheumatoid arthritis, DVT/PE. Family history: no significant family history ED Back Pain Physical Exam - Exam General: Vital signs noted. No distress. Alert and acting appropriately. Back/Abdomen: Yes Straight Leg Raise Pain, No Abdominal Tenderness, No Perithoracic Tenderness, No Perilumbar Tenderness, No Sacroiliac Tenderness, No Flank Tenderness Neuro: Yes Normal Sensation, Yes Normal DTR's, Yes Normal Gait (BUT LIMITED WITH PAIN), No Motor Weakness ED Course Vital Signs 01/24/19 21:45 Temperature 98.7 F Pulse Rate 98 H Respiratory 20 Rate Blood Pressure 168/73 O2 Sat by Pulse 98 Oximetry ED Medical Decision Making - Medical Decision Making Patient presents with acute on chronic pain. She has an orthopedic doctor and an MRI is pending. Her home [place] is not helping her pain so she presents to the ER. Patient has had no new trauma. She is afebrile. Had a lengthy discussion discussion with the patient about her pain management. I encouraged her to call her orthopedic doctor in the morning to see if he could get her MRI scheduled at [facility] or one of the other outpatient imaging centers. This is an acute/chronic issue and the pt has follow up with her ortho MD and a MRI is pending. medicated for pain here in ER will take pt home to bed and follow up with ortho in AM Vital Signs 01/24/19 21:45 Temperature 98.7 F Pulse Rate 98 H Respiratory 20 Rate Blood Pressure 168/73 O2 Sat by Pulse 98 Oximetry 0100 PAIN IMPROVED ON DC Critical care attestation.: If time is entered above; I have spent that time in minutes in the direct care of this critically ill patient, excluding procedure time. ED Disposition Clinical Impression: IDDM (insulin dependent diabetes mellitus), Rheumatoid arthritis, Chronic pain Disposition: DC-01 TO HOME OR SELFCARE Is pt being admited?: No Does the pt Need Aspirin: No Condition: Stable Additional Instructions: warm compresses continue home meds motrin 800 mg with other meds will help with inflammation diabetic diet activity as tolerated follow up with ORTHO MD IN AM HE MAY TRY [facility] OR ANOTHER OUTPATIENT IMAGING CENTER TO GET YOUR MRI DONE TIMELY Referrals: ROCCO SORIANO MD [Staff Physician] - 3-5 Days Time of Disposition: 22:46
[2019-01-24] MEDS ORDERED: DECADRON IM ONE (22:39)
[2019-01-24] MEDS ORDERED: FLEXERIL PO ONE (22:39)
[2019-01-24] MEDS ORDERED: DILAUDID IM ONE (22:39)
[2019-01-26 17:56] VITALS: BP 168/73
== END 2019-01-25 01:35 | disposition home or self-care (01) ==
LOC: ED 20:13
DX: M06.9 Rheumatoid arthritis, unspecified (principal); G89.29 Other chronic pain; E11.65 Type 2 diabetes mellitus with hyperglycemia; I10 Essential (primary) hypertension; E05.90 Thyrotoxicosis, unspecified without thyrotoxic crisis or storm; Z86.718 Personal history of other venous thrombosis and embolism; Z88.0 Allergy status to penicillin; Z88.2 Allergy status to sulfonamides; Z91.040 Latex allergy status; Z79.4 Long term (current) use of insulin
CPT/HCPCS: 96372; 99282; J1100; J1170

== ENCOUNTER 2019-03-09 18:41 | Emergency (ER) | payer MEDICARE ==
[2019-03-09] MEDS ORDERED: ZOFRAN ODT PO ONE (20:44)
[2019-03-09] MEDS ORDERED: NORCO 5/325 PO ONE (20:44)
[2019-03-09 20:48] LABS: Basophils % (Auto) 0.3 % (0.0-1.8); Eosinophils # (Auto) 0.1 K/mm3 (0.0-0.4); Eosinophils % (Auto) 0.8 % (0.0-4.3); Hematocrit 31.8 % (30.3-42.9); Hemoglobin 10.4 gm/dl (10.1-14.3); Lymphocytes # (Auto) 0.9 K/mm3 (1.2-5.4); Lymphocytes % (Auto) 7.4 % (13.4-35.0); Mean Corpuscular HGB Conc 33 % (30-34); Mean Corpuscular Volume 86 fl (79-97); Monocytes # (Auto) 0.3 K/mm3 (0.0-0.8); Monocytes % (Auto) 2.9 % (0.0-7.3); Platelet Count 224 K/mm3 (140-440); Red Cell Distribution Width 17.7 % (13.2-15.2)
--- NOTE | 2019-03-09 20:49 | Emergency Department Report ---
ED General Adult HPI - General Chief complaint: Nausea/Vomiting/Diarrhea Stated complaint: TREMORS Time Seen by Provider: 03/09/19 20:03 Source: patient, EMS Mode of arrival: Stretcher Limitations: Physical Limitation - History of Present Illness Initial comments: Mrs. Nicolette Berry is a very pleasant 53-year-old female with history of lupus, rheumatoid arthritis, diabetes mellitus, hypertension, pulmonary embolism, lumbar degenerative disc disease, right lower extremity radiculopathy who presents with chills shakes for the past 4 days since Friday. She's had nausea. She also has mild low quadrant pain. She has constipation and dark urine. -: Gradual, days(s) (4) Quality: aching Consistency: constant Improves with: none Worsens with: none Associated Symptoms: malaise, nausea/vomiting, other (subjective fever with chills and shakes) - Related Data Home Medications Medication Instructions Recorded Confirmed Last Taken Ergocalciferol [Vitamin D2] 1 cap PO QWEEK 08/29/17 08/29/17 08/25/17 06:30 Gabapentin [Neurontin] 300 mg PO TID 08/29/17 08/29/17 08/29/17 06:30 Insulin Aspart [NovoLOG Flexpen] See Protocol SUB-Q TID 08/29/17 08/29/17 Unknown Insulin Glargine,Hum.rec.anlog 30 units SUB-Q DAILY 08/29/17 08/29/17 08/29/17 06:30 [Lantus Solostar] Leflunomide [Arava] 10 mg PO QDAY 08/29/17 08/29/17 08/28/17 13:45 Magnesium Oxide [Bennett] 500 mg PO BID 08/29/17 08/29/17 08/29/17 06:30 glipiZIDE [Glipizide] 10 mg PO DAILY 08/29/17 08/29/17 08/28/17 13:45 Previous Rx's Medication Instructions Recorded Last Taken Type Folic Acid 1 mg PO QDAY #30 capsule 11/02/16 08/29/17 13:45 Rx Oxybutynin [Ditropan] 5 mg PO BID #60 tablet 11/02/16 08/29/17 06:30 Rx predniSONE [Deltasone] 10 mg PO QDAY #30 tablet 11/02/16 08/29/17 06:30 Rx Amlodipine Besylate [Norvasc] 10 mg PO QDAY #30 tablet 09/01/17 Unknown Rx Apixaban [Eliquis] 5 mg PO Q12HR #60 tablet 09/01/17 Unknown Rx HYDROcodone/APAP 5-325 [[place] 1 each PO Q6HR PRN #8 tablet 10/30/18 Unknown Rx 5/325] Ondansetron [Zofran Odt] 4 mg PO Q8HR PRN #10 tab.rapdis 03/10/19 Unknown Rx cephALEXin [Keflex] 500 mg PO Q6HR 40 Days #10 capsule 03/10/19 Unknown Rx Allergies Allergy/AdvReac Type Severity Reaction Status Date / Time latex Allergy Rash Verified 01/02/19 07:07 Sulfa (Sulfonamide Allergy Unknown Verified 01/02/19 07:07 Antibiotics) Penicillins AdvReac Itching Verified 01/02/19 07:07 ED Review of Systems ROS: Stated complaint: TREMORS Other details as noted in HPI Comment: All other systems reviewed and negative Constitutional: chills, malaise Gastrointestinal: abdominal pain, nausea, vomiting, constipation ED Past Medical Hx - Past Medical History Previous Medical History?: Yes Hx Hypertension: Yes Hx Heart Attack/AMI: No Hx Diabetes: Yes Hx GERD: Yes (2010) Hx Renal Disease: No Hx Arthritis: Yes Hx Headaches / Migraines: Yes Hx Asthma: Yes Hx COPD: No Additional medical history: lupus, compressed disc, hyperthyroidism, rheumatoid arthritis, DVT/PE - Surgical History Past Surgical History?: Yes Hx Coronary Stent: Yes Hx Pacemaker: No Hx Internal Defibrillator: No Additional Surgical History: ectopic , D&C x 3. - Social History Smoking Status: Never Smoker Substance Use Type: None - Medications Home Medications: Home Medications Medication Instructions Recorded Confirmed Last Taken Type Folic Acid 1 mg PO QDAY #30 capsule 11/02/16 08/29/17 08/29/17 13:45 Rx Oxybutynin [Ditropan] 5 mg PO BID #60 tablet 11/02/16 08/29/17 08/29/17 06:30 Rx predniSONE [Deltasone] 10 mg PO QDAY #30 tablet 11/02/16 08/29/17 08/29/17 06:30 Rx Ergocalciferol [Vitamin D2] 1 cap PO QWEEK 08/29/17 08/29/17 08/25/17 06:30 History Gabapentin [Neurontin] 300 mg PO TID 08/29/17 08/29/17 08/29/17 06:30 History Insulin Aspart [NovoLOG Flexpen] See Protocol SUB-Q TID 08/29/17 08/29/17 Unknown History Insulin Glargine,Hum.rec.anlog 30 units SUB-Q DAILY 08/29/17 08/29/17 08/29/17 06:30 History [Lantus Solostar] Leflunomide [Arava] 10 mg PO QDAY 08/29/17 08/29/17 08/28/17 13:45 History Magnesium Oxide [Bennett] 500 mg PO BID 08/29/17 08/29/17 08/29/17 06:30 History glipiZIDE [Glipizide] 10 mg PO DAILY 08/29/17 08/29/17 08/28/17 13:45 History Amlodipine Besylate [Norvasc] 10 mg PO QDAY #30 tablet 09/01/17 Unknown Rx Apixaban [Eliquis] 5 mg PO Q12HR #60 tablet 09/01/17 Unknown Rx HYDROcodone/APAP 5-325 [[place] 1 each PO Q6HR PRN #8 tablet 10/30/18 Unknown Rx 5/325] Ondansetron [Zofran Odt] 4 mg PO Q8HR PRN #10 tab.rapdis 03/10/19 Unknown Rx cephALEXin [Keflex] 500 mg PO Q6HR 40 Days #10 capsule 03/10/19 Unknown Rx ED Physical Exam - General Limitations: No Limitations General appearance: alert, in no apparent distress - Head Head exam: Present: atraumatic, normocephalic - Eye Eye exam: Present: normal appearance - ENT ENT exam: Present: mucous membranes moist - Neck Neck exam: Present: normal inspection, full ROM - Respiratory Respiratory exam: Present: normal lung sounds bilaterally. Absent: respiratory distress, wheezes, rales, rhonchi - Cardiovascular Cardiovascular Exam: Present: regular rate, normal rhythm, normal heart sounds. Absent: systolic murmur, diastolic murmur, rubs, gallop - GI/Abdominal GI/Abdominal exam: Present: soft, normal bowel sounds. Absent: distended, tenderness, guarding, rebound - Extremities Exam Extremities exam: Present: normal inspection - Back Exam Back exam: Present: normal inspection - Neurological Exam Neurological exam: Present: alert, oriented X3 - Psychiatric Psychiatric exam: Present: normal affect, normal mood - Skin Skin exam: Present: warm, dry, intact, normal color. Absent: rash ED Course Vital Signs 03/09/19 03/09/19 03/09/19 19:54 19:58 20:00 Temperature 99.6 F Pulse Rate 103 H 104 H 100 H Respiratory 16 19 13 Rate Blood Pressure 120/72 126/72 O2 Sat by Pulse 97 98 98 Oximetry 03/09/19 03/09/19 03/09/19 20:15 20:31 20:45 Temperature Pulse Rate 103 H 100 H 99 H Respiratory 13 13 13 Rate Blood Pressure 106/37 122/56 108/29 O2 Sat by Pulse 96 98 97 Oximetry 03/09/19 03/09/19 03/09/19 21:15 21:30 21:45 Temperature Pulse Rate 99 H 95 H 99 H Respiratory 16 12 16 Rate Blood Pressure 124/58 132/65 110/59 O2 Sat by Pulse 99 100 93 Oximetry 03/09/19 03/09/19 03/09/19 22:00 22:56 23:01 Temperature Pulse Rate 99 H 94 H 92 H Respiratory 22 23 17 Rate Blood Pressure 122/72 122/72 100/47 O2 Sat by Pulse 96 99 Oximetry 03/09/19 03/09/19 23:15 23:30 Temperature Pulse Rate 91 H 94 H Respiratory 15 15 Rate Blood Pressure 100/47 137/67 O2 Sat by Pulse 98 97 Oximetry ED Medical Decision Making - Lab Data Result diagrams: 03/09/19 20:39 03/09/19 20:39 Laboratory Results - last 24 hr 03/09/19 03/09/19 03/09/19 20:39 20:39 23:15 WBC 11.6 H RBC 3.70 Hgb 10.4 Hct 31.8 MCV 86 MCH 28 MCHC 33 RDW 17.7 H Plt Count 224 Lymph % (Auto) 7.4 L [place] % (Auto) 2.9 Eos % (Auto) 0.8 Baso % (Auto) 0.3 Lymph # 0.9 L [place] # 0.3 Eos # 0.1 Baso # 0.0 Seg Neutrophils % 88.6 H Seg Neutrophils # 10.3 H Sodium 139 Potassium 3.6 Chloride 103.5 Carbon Dioxide 23 Anion Gap 16 BUN 12 Creatinine 0.7 Estimated GFR > 60 BUN/Creatinine Ratio 17 Glucose 95 Calcium 9.7 Total Bilirubin 0.90 AST 16 ALT 30 Alkaline Phosphatase 72 Total Protein 5.7 L Albumin 2.9 L Albumin/Globulin Ratio 1.0 Urine Color Yellow Urine Turbidity Cloudy Urine pH 6.0 Ur Specific [place] 1.011 Urine Protein 30 mg/dl Urine Glucose (UA) Neg Urine Ketones Tr Urine Blood Mod Urine Nitrite Pos Urine Bilirubin Neg Urine Urobilinogen < 2.0 Ur Leukocyte Esterase Lg Urine WBC (Auto) 88.0 H Urine RBC (Auto) 9.0 U Epithel Cells (Auto) 13.0 Urine Bacteria (Auto) 1+ Urine Mucus Few - Radiology Data Radiology results: report reviewed CT abdomen and pelvis bilateral perinephric fat stranding - Medical Decision Making Mrs. Berry presents with dark urine chills left lower quadrant pain. CT indicates perinephric stranding. Diagnosis acute pyelonephritis. Prescribed cephalexin and zofran dc'd home Vital Signs - 24 hr 03/09/19 03/09/19 03/09/19 19:54 19:58 20:00 Temperature 99.6 F Pulse Rate 103 H 104 H 100 H Respiratory 16 19 13 Rate Blood Pressure 120/72 126/72 O2 Sat by Pulse 97 98 98 Oximetry 03/09/19 03/09/19 03/09/19 20:15 20:31 20:45 Temperature Pulse Rate 103 H 100 H 99 H Respiratory 13 13 13 Rate Blood Pressure 106/37 122/56 108/29 O2 Sat by Pulse 96 98 97 Oximetry 03/09/19 03/09/19 03/09/19 21:15 21:30 21:45 Temperature Pulse Rate 99 H 95 H 99 H Respiratory 16 12 16 Rate Blood Pressure 124/58 132/65 110/59 O2 Sat by Pulse 99 100 93 Oximetry 03/09/19 03/09/19 03/09/19 22:00 22:56 23:01 Temperature Pulse Rate 99 H 94 H 92 H Respiratory 22 23 17 Rate Blood Pressure 122/72 122/72 100/47 O2 Sat by Pulse 96 99 Oximetry 03/09/19 03/09/19 23:15 23:30 Temperature Pulse Rate 91 H 94 H Respiratory 15 15 Rate Blood Pressure 100/47 137/67 O2 Sat by Pulse 98 97 Oximetry Critical care attestation.: If time is entered above; I have spent that time in minutes in the direct care of this critically ill patient, excluding procedure time. ED Disposition Clinical Impression: Acute pyelonephritis Disposition: DC-01 TO HOME OR SELFCARE Is pt being admited?: No Does the pt Need Aspirin: No Condition: Stable Instructions: Acute Pyelonephritis (ED) Prescriptions: cephALEXin [Keflex] 500 mg PO Q6HR 40 Days #10 capsule Ondansetron [Zofran Odt] 4 mg PO Q8HR PRN #10 tab.rapdis PRN Reason: Nausea Referrals: PRIMARY CARE, [Primary Care Provider] - 3-5 Days
[2019-03-09 21:13] LABS: Alanine Aminotransferase 30 units/L (7-56); Albumin 2.9 g/dL (3.9-5); BUN/Creatinine Ratio 17; Blood Urea Nitrogen 12 mg/dL (7-17); Calcium 9.7 mg/dL (8.4-10.2); Hemolysis Index 7
--- NOTE | 2019-03-09 22:51 | Cat Scan Report ---
PROCEDURE: CT ABDOMEN PELVIS WO CON TECHNIQUE: Axial images obtained out of pelvis without intravenous contrast. Sagittal and coronal re formatted images. HISTORY: LLQ pain dark urine COMPARISONS: None available FINDINGS: Lung bases demonstrate no consolidation. No effusion. Liver, spleen and pancreas unremarkable noncont rast appearance Contracted gallbladder. No radiopaque calculus. No biliary dilatation Right kidney normal contour. Mild nonspecific perinephric stranding. No calculus. No hydronephrosis. Right ureter is nondilated. Left kidney is enlarged. Perinephric stranding. No calculus. Probable peripelvic cysts. Left renal pe lvis is not dilated. Left ureter not dilated. No left ureteral calculus Anteverted uterus. No adnexal mass. Bladder unremarkable Aorta normal caliber. No significant atherosclerotic calcification No bowel obstruction. No diverticulosis. No diverticulitis. Normal appendix. Omentum and mesentery un remarkable. No free air. No free fluid. No acute bony abnormality IMPRESSION: Left kidney demonstrates probable parapelvic cyst. The left ureter is nondilated. There is no uretera l calculus. Kidneys demonstrate no calculus. There is otherwise no acute abnormality noted No free air. No free fluid No bowel obstruction No acute inflammatory change. This document is electronically signed by Jesus Welch MD., Mar 09 2019 10:49:44 PM ET
[2019-03-09] MEDS ORDERED: TYLENOL PO ONE (23:26)
[2019-03-09] MEDS ORDERED: KEFLEX PO ONE (23:26)
[2019-03-09 23:30] VITALS: BP 137/67
[2019-03-09 23:42] LABS: Bacteria,Urine 1+ /HPF (Negative); Bilirubin,Urine NEG (Negative); Blood,Urine MOD (Negative); Color,Urine Yellow (Yellow); Mucus,Urine FEW /HPF; Urobilinogen,Urine < 2.0 mg/dL (<2.0)
== END 2019-03-10 01:11 | disposition home or self-care (01) ==
LOC: ED 18:41
DX: N10 Acute pyelonephritis (principal); M06.9 Rheumatoid arthritis, unspecified; I10 Essential (primary) hypertension; M32.9 Systemic lupus erythematosus, unspecified; E11.9 Type 2 diabetes mellitus without complications; K21.9 Gastro-esophageal reflux disease without esophagitis; G43.909 Migraine, unspecified, not intractable, without status migrainosus; M19.90 Unspecified osteoarthritis, unspecified site; J45.909 Unspecified asthma, uncomplicated; E05.90 Thyrotoxicosis, unspecified without thyrotoxic crisis or storm; Z86.711 Personal history of pulmonary embolism; Z91.040 Latex allergy status; Z88.2 Allergy status to sulfonamides; Z88.0 Allergy status to penicillin; Z79.4 Long term (current) use of insulin
CPT/HCPCS: 36415; 74176; 80053; 81001; 85025; 87040; 87076; 87186; 99285; Q0162

== ENCOUNTER 2019-09-09 18:00 | Inpatient (IN) | payer MEDICARE ==
--- NOTE | 2019-09-09 18:22 | Event Note ---
ED Screening Note Date of service: 09/09/19 Time: 18:16 ED Screening Note: reports that her blood 42 this morning and 4 swwet tarts. Went up to 50 and 52.Drank ghulam coffee with sweetener and ate 2 packs of oatmeals. drank orange juice.. Reports nausea and vomitting.. Denies abdominal pain. Denies fever or chills. Takes insulin. Low blood sugar daily for the last couple weeks. PCP Roseanna ABD: soft. NTTP.soft This initial assessment/diagnostic orders/clinical plan/treatment(s) is/are subject to change based on patients health status, clinical progression and re- assessment by fellow clinical providers in the ED. Further treatment and workup at subsequent clinical providers discretion. Patient/guardian urged not to elope from the ED as their condition may be serious if not clinically assessed and managed. Initial orders include: Labs
[2019-09-09 19:07] LABS: Basophils # (Auto) 0.1 K/mm3 (0.0-0.1); Basophils % (Auto) 0.8 % (0.0-1.8); Eosinophils # (Auto) 0.1 K/mm3 (0.0-0.4); Eosinophils % (Auto) 0.5 % (0.0-4.3); Hematocrit 31.9 % (30.3-42.9); Hemoglobin 10.3 gm/dl (10.1-14.3); Lymphocytes # (Auto) 1.7 K/mm3 (1.2-5.4); Lymphocytes % (Auto) 12.2 % (13.4-35.0); Mean Corpuscular HGB Conc 32 % (30-34); Mean Corpuscular Volume 89 fl (79-97); Monocytes # (Auto) 0.5 K/mm3 (0.0-0.8); Monocytes % (Auto) 3.7 % (0.0-7.3); Platelet Count 331 K/mm3 (140-440); Red Blood Count 3.58 M/mm3 (3.65-5.03); Red Cell Distribution Width 18.2 % (13.2-15.2)
[2019-09-09 19:16] LABS: Alanine Aminotransferase 43 units/L (7-56); Albumin 3.3 g/dL (3.9-5); BUN/Creatinine Ratio 15; Blood Urea Nitrogen 16 mg/dL (7-17); Calcium 9.6 mg/dL (8.4-10.2); Hemolysis Index 11
[2019-09-09] MEDS ORDERED: DEXTROSE 50% IN WATER (25GM) 50 ML SYRINGE IV ONE (20:23)
[2019-09-09] MEDS ORDERED: fentaNYL 100 MCG/2 ML INJ IV ONE ×2 (20:33→23:28)
[2019-09-09] MEDS ORDERED: ONDANSETRON 4 MG/2 ML INJ IV ONE (20:33)
[2019-09-09] MEDS ORDERED: DEXTROSE 50% IN WATER (25GM) 50 ML SYRINGE IV PRN (20:34)
--- NOTE | 2019-09-09 20:36 | Emergency Department Report ---
ED General Adult HPI - General Chief complaint: Hypoglycemia Stated complaint: HYPOGLYCEMIA Time Seen by Provider: 09/09/19 18:16 Source: patient, family, EMS ( EMS documentation not available at time of chart dictation ), RN notes reviewed, old records reviewed Mode of arrival: Wheelchair Limitations: Physical Limitation - History of Present Illness Initial comments: This is a 54-year-old female. I have evaluated this patient in the past. Primary care doctor: [facility] Rheumatology: Dr. Alejo, [place] [facility] Public Transportation Inspector: Dr. Lagos Past medical history: Pulmonary embolism, on permanent anticoagulation, eliquis, insulin-dependent diabetes, also takes glipizide, history of lupus, chronic steroid dependence, on prednisone, 5 mg twice daily, once weekly methotrexate, and reported chronic pulmonary disease secondary to chronic medications. Also has history of chronic radicular back pain. Patient presents to the ER with a complaint of weakness. As per her , she began to "talking out of her head", her "eyes rolled in the back of her head", and the patient appeared to have an episode of loss of consciousness. No convulsive events were described. No trauma was described. The patient states that she's been nauseous, vomiting and weak. She has chronic right hip pain and right paralumbar back pain. She reports that she is compliant with her medications. She reports that her outpatient scagliola mechanic recently gave her be 1 medication as well as glucosamine. She makes no complaint of headache, neck pain, chest pain, abdominal pain, new or different shortness of breath. She was found to have multiple episodes of hypoglycemia in the field. She was also found to be hypoglycemic in the emergency room. The patient states she took her glipizide this morning. -: Gradual Location: back Quality: aching Consistency: intermittent Improves with: rest Worsens with: movement - Related Data Home Medications Medication Instructions Recorded Confirmed Last Taken Ergocalciferol [Vitamin D2] 1 cap PO QWEEK 08/29/17 08/29/17 08/25/17 06:30 Gabapentin 300 mg PO TID 08/29/17 08/29/17 08/29/17 06:30 Insulin Aspart (Nf) [NovoLOG See Protocol SUB-Q TID 08/29/17 08/29/17 Unknown Flexpen] Insulin Glargine,Hum.rec.anlog 30 units SUB-Q DAILY 08/29/17 08/29/17 08/29/17 06:30 [Lantus Solostar] Leflunomide [Arava] 10 mg PO QDAY 08/29/17 08/29/17 08/28/17 13:45 Magnesium Oxide [Bennett] 500 mg PO BID 08/29/17 08/29/17 08/29/17 06:30 glipiZIDE [Glipizide] 10 mg PO DAILY 08/29/17 08/29/17 08/28/17 13:45 Previous Rx's Medication Instructions Recorded Last Taken Type Folic Acid 1 mg PO QDAY #30 capsule 11/02/16 08/29/17 13:45 Rx Oxybutynin [Ditropan] 5 mg PO BID #60 tablet 11/02/16 08/29/17 06:30 Rx predniSONE [Deltasone] 10 mg PO QDAY #30 tablet 11/02/16 08/29/17 06:30 Rx Amlodipine Besylate [Norvasc] 10 mg PO QDAY #30 tablet 09/01/17 Unknown Rx Apixaban [Eliquis] 5 mg PO Q12HR #60 tablet 09/01/17 Unknown Rx HYDROcodone/APAP 5-325 [[place] 1 each PO Q6HR PRN #8 tablet 10/30/18 Unknown Rx 5/325] Fluconazole [Diflucan TAB] 150 mg PO ONCE #1 tablet 03/10/19 Unknown Rx Ondansetron [Zofran Odt] 4 mg PO Q8HR PRN #10 tab.rapdis 03/10/19 Unknown Rx cephALEXin [Keflex] 500 mg PO Q6HR 40 Days #10 capsule 03/10/19 Unknown Rx Allergies Allergy/AdvReac Type Severity Reaction Status Date / Time latex Allergy Rash Verified 01/02/19 07:07 Sulfa (Sulfonamide Allergy Unknown Verified 01/02/19 07:07 Antibiotics) Penicillins AdvReac Itching Verified 01/02/19 07:07 ED Review of Systems ROS: Stated complaint: HYPOGLYCEMIA Other details as noted in HPI Constitutional: malaise, weakness Eyes: denies: eye discharge ENT: denies: congestion Respiratory: denies: wheezing Cardiovascular: denies: syncope Gastrointestinal: denies: diarrhea, constipation, hematemesis, melena, hematochezia Genitourinary: denies: dysuria Musculoskeletal: back pain, arthralgia, myalgia Skin: denies: lesions Neurological: weakness, confusion. denies: headache Hematological/Lymphatic: denies: easy bleeding ED Past Medical Hx - Past Medical History Previous Medical History?: Yes Hx Hypertension: Yes Hx Heart Attack/AMI: No Hx Diabetes: Yes Hx GERD: Yes (2010) Hx Renal Disease: No Hx Arthritis: Yes Hx Headaches / Migraines: Yes Hx Asthma: Yes Hx COPD: No Additional medical history: lupus, compressed disc, hyperthyroidism, rheumatoid arthritis, DVT/PE - Surgical History Past Surgical History?: Yes Hx Coronary Stent: Yes Hx Pacemaker: No Hx Internal Defibrillator: No Additional Surgical History: ectopic , D&C x 3. - Social History Smoking Status: Never Smoker - Medications Home Medications: Home Medications Medication Instructions Recorded Confirmed Last Taken Type Folic Acid 1 mg PO QDAY #30 capsule 11/02/16 08/29/17 08/29/17 13:45 Rx Oxybutynin [Ditropan] 5 mg PO BID #60 tablet 11/02/16 08/29/17 08/29/17 06:30 Rx predniSONE [Deltasone] 10 mg PO QDAY #30 tablet 11/02/16 08/29/17 08/29/17 06:30 Rx Ergocalciferol [Vitamin D2] 1 cap PO QWEEK 08/29/17 08/29/17 08/25/17 06:30 History Gabapentin 300 mg PO TID 08/29/17 08/29/17 08/29/17 06:30 History Insulin Aspart (Nf) [NovoLOG See Protocol SUB-Q TID 08/29/17 08/29/17 Unknown History Flexpen] Insulin Glargine,Hum.rec.anlog 30 units SUB-Q DAILY 08/29/17 08/29/17 08/29/17 06:30 History [Lantus Solostar] Leflunomide [Arava] 10 mg PO QDAY 08/29/17 08/29/17 08/28/17 13:45 History Magnesium Oxide [Bennett] 500 mg PO BID 08/29/17 08/29/17 08/29/17 06:30 History glipiZIDE [Glipizide] 10 mg PO DAILY 08/29/17 08/29/17 08/28/17 13:45 History Amlodipine Besylate [Norvasc] 10 mg PO QDAY #30 tablet 09/01/17 Unknown Rx Apixaban [Eliquis] 5 mg PO Q12HR #60 tablet 09/01/17 Unknown Rx HYDROcodone/APAP 5-325 [[place] 1 each PO Q6HR PRN #8 tablet 10/30/18 Unknown Rx 5/325] Fluconazole [Diflucan TAB] 150 mg PO ONCE #1 tablet 03/10/19 Unknown Rx Ondansetron [Zofran Odt] 4 mg PO Q8HR PRN #10 tab.rapdis 03/10/19 Unknown Rx cephALEXin [Keflex] 500 mg PO Q6HR 40 Days #10 capsule 03/10/19 Unknown Rx ED Physical Exam - General Limitations: Physical Limitation, Other (during the history and physical examination, shopper's aide and escorted by nurse Raquel Nuñez) General appearance: alert, in no apparent distress - Head Head exam: Present: atraumatic, normocephalic - Eye Eye exam: Present: normal appearance, PERRL, EOMI, other (visual acuity intact to finger counting, color perception, reading at a close distance). Absent: nystagmus - ENT ENT exam: Present: normal exam, normal orophraynx, mucous membranes moist, normal external ear exam - Neck Neck exam: Present: normal inspection, full ROM. Absent: tenderness, meningismus - Respiratory Respiratory exam: Present: decreased breath sounds. Absent: respiratory distress, wheezes, rales, rhonchi, stridor - Cardiovascular Cardiovascular Exam: Present: normal rhythm, tachycardia, normal heart sounds. Absent: systolic murmur, diastolic murmur, rubs, gallop - GI/Abdominal GI/Abdominal exam: Present: soft. Absent: distended, tenderness, guarding, rebound, rigid, pulsatile mass - Extremities Exam Extremities exam: Present: normal inspection, other (2+ pulses noted in the bilateral upper, lower extremities. There is no long bone tenderness. Musculoskeletal compartments are soft. The pelvis is stable.). Absent: calf tenderness - Back Exam Back exam: Present: normal inspection, tenderness (there is reproducible right sided para lumbar tenderness. There is no midline lumbar spine tenderness.), paraspinal tenderness - Neurological Exam Neurological exam: Present: alert, oriented X3, other (there is no facial droop. The tongue is midline. Extraocular movements are intact bilaterally. Patient speaking in full complete sentences. Shoulder shrug is intact bilaterally. Hearing is grossly intact bilaterally. Visual acuity intact to finger counting and color perception at a close distance. 5/5 strength 4 extremities. Sensation intact to light touch in 4 extremities.) - Psychiatric Psychiatric exam: Present: anxious - Skin Skin exam: Present: warm, dry, intact, normal color. Absent: rash ED Course Vital Signs 09/09/19 18:30 Temperature 98.5 F Pulse Rate 116 H Respiratory 20 Rate Blood Pressure 108/84 O2 Sat by Pulse 100 Oximetry - Reevaluation(s) Reevaluation #1: 09/09/19 20:42 Differential diagnosis, including not limited to: Hyperglycemia secondary to glipizide, adrenal insufficiency, thyroid derangement, intracranial bleed, intra-abdominal bleed/retroperitoneal bleed, pneumonia, urinary tract infection Assessment and plan: 54-year-old female with complex history, with complaint of acute on chronic right-sided paralumbar back pain, nausea, vomiting, inability to tolerate liquid feeds, found to have multiple episodes of hypoglycemia, and syncope. Endorses compliance with diabetic medications as well systemic anticoagulation. Patient will be placed on a dextrose strip, every one hour Accu-Cheks ordered. We will treat her pain and nausea. CT scan brain, abdomen says pelvis ordered to exclude intracranial hemorrhage, retroperitoneal hemorrhage/AAA. Patient clinically sober at this time, GCS of 15. X-ray the chest ordered, urinalysis ordered. Patient will are admission to the hospital for hypoglycemia requiring dextrose drip, likely multifactorial in etiology. We will give the patient stress dose steroids. Informed patient that she would require admission to the hospital, she is verbalized understanding and is amenable to this plan of care. Reevaluation #2: 09/09/19 22:19 CT scan brain, abdomen pelvis negative. Urinalysis reviewed and appreciated, Macrobid ordered. Patient having persistent pain, can't give NSAIDs secondary to concomitant anticoagulant utilization. Not advisable to give narcotics given history of nausea, vomiting, altered mental status. Therefore, she will be given Tylenol. The Hospital physician is paged to arrange admission. Reevaluation #3: 09/09/19 22:32 DR celia Torres to admit ED Medical Decision Making - Lab Data Result diagrams: 09/09/19 18:51 09/09/19 18:51 Vital Signs 09/09/19 18:30 Temperature 98.5 F Pulse Rate 116 H Respiratory 20 Rate Blood Pressure 108/84 O2 Sat by Pulse 100 Oximetry Lab Results 09/09/19 09/09/19 09/09/19 Range/Units 18:21 18:51 18:51 WBC 13.5 H (4.5-11.0) K/mm3 RBC 3.58 L (3.65-5.03) M/mm3 Hgb 10.3 (10.1-14.3) gm/dl Hct 31.9 (30.3-42.9) % MCV 89 (79-97) fl MCH 29 (28-32) pg MCHC 32 (30-34) % RDW 18.2 H (13.2-15.2) % Plt Count 331 (140-440) K/mm3 Lymph % (Auto) 12.2 L (13.4-35.0) % Allen % (Auto) 3.7 (0.0-7.3) % Eos % (Auto) 0.5 (0.0-4.3) % Baso % (Auto) 0.8 (0.0-1.8) % Lymph # 1.7 (1.2-5.4) K/mm3 Allen # 0.5 (0.0-0.8) K/mm3 Eos # 0.1 (0.0-0.4) K/mm3 Baso # 0.1 (0.0-0.1) K/mm3 Seg Neutrophils % 82.8 H (40.0-70.0) % Seg Neutrophils # 11.2 H (1.8-7.7) K/mm3 Sodium 137 (137-145) mmol/L Potassium 3.7 (3.6-5.0) mmol/L Chloride 100.6 (98-107) mmol/L Carbon Dioxide 23 (22-30) mmol/L Anion Gap 17 mmol/L BUN 16 (7-17) mg/dL Creatinine 1.1 (0.7-1.2) mg/dL Estimated GFR > 60 ml/min BUN/Creatinine Ratio 15 % Glucose 50 L (65-100) mg/dL POC Glucose 62 L (70-105) Calcium 9.6 (8.4-10.2) mg/dL Total Bilirubin 0.30 (0.1-1.2) mg/dL AST 29 (5-40) units/L ALT 43 (7-56) units/L Alkaline Phosphatase 66 (35-129) units/L Total Protein 7.1 (6.3-8.2) g/dL Albumin 3.3 L (3.9-5) g/dL Albumin/Globulin Ratio 0.9 % Lipase 19 (13-60) units/L // Range/Units 20:31 WBC (4.5-11.0) K/mm3 RBC (3.65-5.03) M/mm3 Hgb (10.1-14.3) gm/dl Hct (30.3-42.9) % MCV (79-97) fl MCH (28-32) pg MCHC (30-34) % RDW (13.2-15.2) % Plt Count (140-440) K/mm3 Lymph % (Auto) (13.4-35.0) % Allen % (Auto) (0.0-7.3) % Eos % (Auto) (0.0-4.3) % Baso % (Auto) (0.0-1.8) % Lymph # (1.2-5.4) K/mm3 Allen # (0.0-0.8) K/mm3 Eos # (0.0-0.4) K/mm3 Baso # (0.0-0.1) K/mm3 Seg Neutrophils % (40.0-70.0) % Seg Neutrophils # (1.8-7.7) K/mm3 Sodium (137-145) mmol/L Potassium (3.6-5.0) mmol/L Chloride (98-107) mmol/L Carbon Dioxide (22-30) mmol/L Anion Gap mmol/L BUN (7-17) mg/dL Creatinine (0.7-1.2) mg/dL Estimated GFR ml/min BUN/Creatinine Ratio % Glucose (65-100) mg/dL POC Glucose 48 L (70-105) Calcium (8.4-10.2) mg/dL Total Bilirubin (0.1-1.2) mg/dL AST (5-40) units/L ALT (7-56) units/L Alkaline Phosphatase (35-129) units/L Total Protein (6.3-8.2) g/dL Albumin (3.9-5) g/dL Albumin/Globulin Ratio % Lipase (13-60) units/L - EKG Data -: EKG Interpreted by Me Rate: tachycardia - EKG Data 09/09/19 20:44 The EKG today shows a sinus tachycardia, 113 beats for minute, there is a left axis deviation, left anterior fascicular block, QTC 441 ms, there is motion artifact, the EKG is abnormal, there is poor R-wave progression, it is not consistent with STEMI. It is unchanged from prior EKG from December 2018. - Radiology Data Radiology results: pending Critical care attestation.: If time is entered above; I have spent that time in minutes in the direct care of this critically ill patient, excluding procedure time. ED Disposition Clinical Impression: Hypoglycemia Adverse effect of sulfonylurea Qualifiers: Encounter type: initial encounter Qualified Code(s): T38.3X5A - Adverse effect of insulin and oral hypoglycemic [antidiabetic] drugs, initial encounter Nausea & vomiting Qualifiers: Vomiting type: unspecified Vomiting Intractability: unspecified Qualified Code(s): R11.2 - Nausea with vomiting, unspecified Disposition: DC-09 OP ADMIT IP TO THIS HOSP Is pt being admited?: Yes Condition: Fair Referrals: PRIMARY CARE,MD [Primary Care Provider] - 3-5 Days
[2019-09-09] MEDS ORDERED: methylPREDNISolone Sod Succinate 125 MG/2 ML INJ IV ONE (20:45)
[2019-09-09] MEDS ORDERED: SODIUM CHLORIDE 0.9% 1000 ML 1,000 ML IV ONE (20:46)
[2019-09-09] MEDS ORDERED: D5W/0.45% NACL 1,000 ML IV SCH (21:00)
[2019-09-09] MEDS ORDERED: DEXTROSE 10% IN WATER 1,000 ML IV SCH (21:00)
[2019-09-09 21:07] LABS: Bacteria,Urine 1+ /HPF (Negative); Bilirubin,Urine NEG (Negative); Blood,Urine NEG (Negative); Color,Urine Straw (Yellow); Hyaline Casts,Urine 2 /LPF; Protein,Urine <15 mg/dL mg/dL (Negative); Urobilinogen,Urine < 2.0 mg/dL (<2.0)
--- NOTE | 2019-09-09 21:28 | XRay Report ---
CHEST 1 VIEW INDICATION: syncope sepsis. COMPARISON: 08/29/2017 FINDINGS: Support devices: None. Heart: Within normal limits. Lungs/Pleura: No acute air space or interstitial disease. Additional findings: None. IMPRESSION: 1. No acute findings. Signer Name: Delgado Montesinos MD Signed: 09/09/2019 9:24 PM Workstation Name: [id number]
--- NOTE | 2019-09-09 21:29 | XRay Report ---
AP pelvis INDICATION: hip pain back pain. COMPARISON: None. IMPRESSION: No acute osseous or soft tissue abnormality. Mild DJD in the SI joints and lumbar spi ne. Signer Name: Delgado Montesinos MD Signed: 09/09/2019 9:24 PM Workstation Name: [id number]
[2019-09-09] MEDS ORDERED: OCTREOTIDE 100 MCG/1 ML INJ IV ONE (21:33)
[2019-09-09 21:59] LABS: INR 1.23 (0.87-1.13)
[2019-09-09 22:00] LABS: Partial Thromboplastin Time 29.2 Sec. (24.2-36.6)
--- NOTE | 2019-09-09 22:03 | Cat Scan Report ---
CT head without contrast INDICATION : syncope on blood thinners. TECHNIQUE: Axial imaging performed from the skull apex through the skull base without the use of con trast. All CT scans at this location are performed using CT dose reduction for ALARA by means of aut omated exposure control. COMPARISON: CT head from 05/30/2013 FINDINGS: Parenchyma: No acute intracranial hemorrhage or parenchymal abnormality. Ventricles: Ventricles are normal in size and appear symmetric. Soft tissues: Soft tissues including the orbits appear normal. Bones: No acute osseous abnormality. Sinuses: Sinuses and mastoid air cells are clear. IMPRESSION: No acute abnormality. Signer Name: Delgado Montesinos MD Signed: 09/09/2019 9:59 PM Workstation Name: [id number]
--- NOTE | 2019-09-09 22:15 | Cat Scan Report ---
CT ABDOMEN AND PELVIS WITHOUT CONTRAST HISTORY: syncope on blood thinners. COMPARISON: CT abdomen/pelvis from 03/09/2019 TECHNIQUE: CT images of the abdomen and pelvis were obtained without administration of intravenous co ntrast. All CT scans at this location are performed using CT dose reduction for ALARA by means of au tomated exposure control. FINDINGS: Lungs/bones: Lung bases are clear. There is DJD in the spine and pelvis with no acute osseous abnorm ality identified. Abdomen/pelvis: The liver, gallbladder, spleen, pancreas, adrenals, right kidney, and proximal GI tr act appear unremarkable. There is parapelvic cyst formation on the left. The left kidney is otherwise unremarkable. Urinary bladder is partially collapsed but otherwise unremarkable. Reproductive organs are unremarkab le. No pelvic free fluid and no acute colonic abnormality identified. The appendix and terminal ileum are normal. No hematoma formation identified. IMPRESSION: 1. Unremarkable examination. Signer Name: Delgado Montesinos MD Signed: 09/09/2019 10:10 PM Workstation Name: [id number][id number]
[2019-09-09] MEDS ORDERED: ACETAMINOPHEN 325 MG TAB PO ONE (22:19)
[2019-09-09] MEDS ORDERED: NITROFURANTOIN MONOHYD/M-CRYST 100 MG CAP PO ONE (22:19)
[2019-09-09] MEDS ORDERED: METOCLOPRAMIDE 10 MG/2 ML INJ IV ONE (22:28)
[2019-09-10] MEDS ORDERED: ONDANSETRON 4 MG ODT TAB PO PRN (03:36)
[2019-09-10] MEDS ORDERED: HYDROcodone/ACETAMINOPHEN 5-325 MG TAB PO PRN (03:36)
[2019-09-10] MEDS ORDERED: ACETAMINOPHEN 325 MG TAB PO PRN (03:45)
[2019-09-10] MEDS ORDERED: ONDANSETRON 4 MG/2 ML INJ IV PRN (03:45)
[2019-09-10] MEDS ORDERED: HYDROmorphone 1 MG/1 ML INJ IV PRN (03:45)
[2019-09-10] MEDS ORDERED: oxyCODONE /ACETAMINOPHEN 5-325MG TAB PO PRN (03:45)
--- NOTE | 2019-09-10 04:40 | History and Physical Report ---
History of Present Illness Date of examination: 09/09/19 Date of admission: 09/10/19 00:39 Chief complaint: Altered sensorium since afternoon History of present illness: 54-year-old female with history of rheumatoid arthritis, pulmonary embolism for which she is taking ELIQUIS, insulin-dependent diabetes on insulin and glipizide, history of lupus and vitamin D deficiency comes in for altered sensorium and near loss of consciousness. EMS was called. On the field patient had a low blood glucose levels around 20-40. In the emergency room patient was given multiple doses of D50 W in spite of which she was hypoglycemic--hence patient being admitted for observation. Patient does not need to be on glipizide as she is on insulin. No seizures. No fever or chills. Past Medical History Previous Medical History?: Yes Hypertension: Yes Heart Attack/AMI: No Diabetes: Yes GERD: Yes (2010) Arthritis: Yes Headaches / Migraines: Yes Asthma: Yes Additional medical history: lupus, compressed disc, hyperthyroidism, rheumatoid arthritis, DVT/PE Surgical History Past Surgical History?: Yes Coronary Stent: Yes Additional Surgical History: ectopic , D&C x 3. Social History Smoking Status: Never Smoker Family history Htn Review of Systems ROS: Stated complaint: HYPOGLYCEMIA Other details as noted in HPI Constitutional: malaise, weakness Eyes: denies: eye discharge ENT: denies: congestion Respiratory: denies: wheezing Cardiovascular: denies: syncope Gastrointestinal: denies: diarrhea, constipation, hematemesis, melena, hematochezia Genitourinary: denies: dysuria Musculoskeletal: back pain, arthralgia, myalgia Skin: denies: lesions Neurological: weakness, confusion. denies: headache Hematological/Lymphatic: denies: easy bleeding Medications and Allergies Allergies Allergy/AdvReac Type Severity Reaction Status Date / Time latex Allergy Rash Verified 01/02/19 07:07 Sulfa (Sulfonamide Allergy Unknown Verified 01/02/19 07:07 Antibiotics) Penicillins AdvReac Itching Verified 01/02/19 07:07 Home Medications Medication Instructions Recorded Confirmed Last Taken Type Folic Acid 1 mg PO QDAY #30 capsule 11/02/16 09/10/19 08/29/17 13:45 Rx Oxybutynin [Ditropan] 5 mg PO BID #60 tablet 11/02/16 09/10/19 08/29/17 06:30 Rx predniSONE [Deltasone] 10 mg PO QDAY #30 tablet 11/02/16 09/10/19 08/29/17 06:30 Rx Ergocalciferol [Vitamin D2] 1 cap PO QWEEK 08/29/17 09/10/19 08/25/17 06:30 History Gabapentin 300 mg PO TID 08/29/17 09/10/19 08/29/17 06:30 History Insulin Aspart (Nf) [NovoLOG See Protocol SUB-Q TID 08/29/17 09/10/19 Unknown History Flexpen] Insulin Glargine,Hum.rec.anlog 30 units SUB-Q DAILY 08/29/17 09/10/19 08/29/17 06:30 History [Lantus Solostar] Leflunomide [Arava] 10 mg PO QDAY 08/29/17 09/10/19 08/28/17 13:45 History Magnesium Oxide [[place]] 500 mg PO BID 08/29/17 09/10/19 08/29/17 06:30 History glipiZIDE [Glipizide] 10 mg PO DAILY 08/29/17 09/10/19 08/28/17 13:45 History Amlodipine Besylate [Norvasc] 10 mg PO QDAY #30 tablet 09/01/17 09/10/19 Unknown Rx Apixaban [Eliquis] 5 mg PO Q12HR #60 tablet 09/01/17 09/10/19 Unknown Rx HYDROcodone/APAP 5-325 [[place] 1 each PO Q6HR PRN #8 tablet 10/30/18 09/10/19 Unknown Rx 5/325] Ondansetron [Zofran Odt] 4 mg PO Q8HR PRN #10 tab.rapdis 03/10/19 09/10/19 Unknown Rx Active Meds: Active Medications Acetaminophen (Tylenol) 650 mg PO Q4H PRN PRN Reason: Pain MILD(1-3)/Fever >100.5/BISHOP Acetaminophen/Hydrocodone Bitart ([place] 5/325) 1 each PO Q6H PRN PRN Reason: PAIN (4-6) Amlodipine Besylate (Amlodipine) 10 mg PO QDAY GRAY Apixaban (Eliquis) 5 mg PO Q12HR GRAY; Protocol Dextrose (D50w (25gm) Syringe) 50 ml IV Q30MIN PRN; Protocol PRN Reason: Hypoglycemia Last Admin: 09/09/19 22:14 Dose: 50 ml Documented by: Famotidine (Pepcid) 20 mg IV BID [facility] Folic Acid (Folvite) 1 mg PO QDAY GRAY Gabapentin (Gabapentin) 300 mg PO TID GRAY Hydromorphone HCl (Dilaudid) 0.5 mg IV Q3H PRN PRN Reason: Pain , Severe (7-10) Dextrose/Sodium Chloride (D5ns) 1,000 mls @ 75 mls/hr IV DIRECT GRAY Insulin Human Lispro (Humalog) 0 unit SUB-Q Q4H GRAY; Protocol Magnesium Oxide (Mag-Ox) 400 mg PO BID [facility] Miscellaneous Medication (Leflunomide [Arava]) 10 mg PO QDAY GRAY Ondansetron HCl (Zofran Odt) 4 mg PO Q8H PRN PRN Reason: Nausea Ondansetron HCl (Zofran) 4 mg IV Q8H PRN PRN Reason: Nausea And Vomiting Oxybutynin Chloride (Ditropan) 5 mg PO BID [facility] Oxycodone/Acetaminophen (Percocet 5/325) 1 tab PO Q6H PRN PRN Reason: Pain, Moderate (4-6) Prednisone (Deltasone) 10 mg PO QDAY [facility] Sodium Chloride (Sodium Chloride Flush Syringe 10 Ml) 10 ml IV BID [facility] Sodium Chloride (Sodium Chloride Flush Syringe 10 Ml) 10 ml IV PRN PRN PRN Reason: LINE FLUSH Exam - Constitutional Vitals: Temp Pulse Resp BP Pulse Ox 98.5 F 94 H 18 140/80 97 09/09/19 18:30 09/10/19 02:00 09/10/19 02:00 09/10/19 02:00 09/10/19 02:00 General appearance: Present: no acute distress, well-nourished - EENT Eyes: Present: PERRL ENT: hearing intact, clear oral mucosa - Neck Neck: Present: supple, normal ROM - Respiratory Respiratory effort: normal Respiratory: bilateral: CTA - Cardiovascular Heart rate: 88 Rhythm: regular Heart Sounds: Present: S1 & S2. Absent: rub, click - Extremities Extremities: no ischemia, pulses intact, pulses symmetrical, No edema Peripheral Pulses: within normal limits - Abdominal General gastrointestinal: Present: soft, non-tender, non-distended, normal bowel sounds Female genitourinary: Present: normal - Rectal Rectal Exam: deferred - Integumentary Integumentary: Present: clear, warm, dry - Musculoskeletal Musculoskeletal: gait normal, strength equal bilaterally - Psychiatric Psychiatric: appropriate mood/affect, intact judgment & insight - Neurologic Neurologic: CNII-XII intact, moves all extremities - Allied Health Allied health notes reviewed: nursing, case management Results - Labs CBC & Chem 7: 09/09/19 18:51 09/09/19 18:51 Labs: Laboratory Last Values WBC 13.5 K/mm3 (4.5-11.0) H 09/09/19 18:51 RBC 3.58 M/mm3 (3.65-5.03) L 09/09/19 18:51 Hgb 10.3 gm/dl (10.1-14.3) 09/09/19 18:51 Hct 31.9 % (30.3-42.9) 09/09/19 18:51 MCV 89 fl (79-97) 09/09/19 18:51 MCH 29 pg (28-32) 09/09/19 18:51 MCHC 32 % (30-34) 09/09/19 18:51 RDW 18.2 % (13.2-15.2) H 09/09/19 18:51 Plt Count 331 K/mm3 (140-440) 09/09/19 18:51 Lymph % (Auto) 12.2 % (13.4-35.0) L 09/09/19 18:51 [place] % (Auto) 3.7 % (0.0-7.3) 09/09/19 18:51 Eos % (Auto) 0.5 % (0.0-4.3) 09/09/19 18:51 Baso % (Auto) 0.8 % (0.0-1.8) 09/09/19 18:51 Lymph # 1.7 K/mm3 (1.2-5.4) 09/09/19 18:51 [place] # 0.5 K/mm3 (0.0-0.8) 09/09/19 18:51 Eos # 0.1 K/mm3 (0.0-0.4) 09/09/19 18:51 Baso # 0.1 K/mm3 (0.0-0.1) 09/09/19 18:51 Seg Neutrophils % 82.8 % (40.0-70.0) H 09/09/19 18:51 Seg Neutrophils # 11.2 K/mm3 (1.8-7.7) H 09/09/19 18:51 PT 15.4 Sec. (12.2-14.9) H 09/09/19 21:03 INR 1.23 (0.87-1.13) H 09/09/19 21:03 APTT 29.2 Sec. (24.2-36.6) 09/09/19 21:03 Sodium 137 mmol/L (137-145) 09/09/19 18:51 Potassium 3.7 mmol/L (3.6-5.0) 09/09/19 18:51 Chloride 100.6 mmol/L (98-107) 09/09/19 18:51 Carbon Dioxide 23 mmol/L (22-30) 09/09/19 18:51 Anion Gap 17 mmol/L 09/09/19 18:51 BUN 16 mg/dL (7-17) 09/09/19 18:51 Creatinine 1.1 mg/dL (0.7-1.2) 09/09/19 18:51 Estimated GFR > 60 ml/min 09/09/19 18:51 BUN/Creatinine Ratio 15 % 09/09/19 18:51 Glucose 50 mg/dL (65-100) L 09/09/19 18:51 POC Glucose 230 (70-105) H 09/10/19 00:25 Lactic Acid 1.40 mmol/L (0.7-2.0) 09/09/19 21:03 Calcium 9.6 mg/dL (8.4-10.2) 09/09/19 18:51 Magnesium 2.10 mg/dL (1.7-2.3) 09/09/19 21:03 Total Bilirubin 0.30 mg/dL (0.1-1.2) 09/09/19 18:51 AST 29 units/L (5-40) 09/09/19 18:51 ALT 43 units/L (7-56) 09/09/19 18:51 Alkaline Phosphatase 66 units/L (35-129) 09/09/19 18:51 Total Creatine Kinase 91 units/L (30-135) 09/09/19 21:03 Troponin T < 0.010 ng/mL (0.00-0.029) 09/09/19 21:03 Total Protein 7.1 g/dL (6.3-8.2) 09/09/19 18:51 Albumin 3.3 g/dL (3.9-5) L 09/09/19 18:51 Albumin/Globulin Ratio 0.9 % 09/09/19 18:51 Lipase 19 units/L (13-60) 09/09/19 18:51 TSH 0.780 mlU/mL (0.270-4.200) 09/09/19 21:03 Free T4 1.07 ng/dL (0.76-1.46) 09/09/19 21:03 Urine Color Straw (Yellow) 09/09/19 20:28 Urine Turbidity Clear (Clear) 09/09/19 20:28 Urine pH 6.0 (5.0-7.0) 09/09/19 20:28 Ur Specific [place] 1.005 (1.003-1.030) 09/09/19 20:28 Urine Protein <15 mg/dl mg/dL (Negative) 09/09/19 20:28 Urine Glucose (UA) Neg mg/dL (Negative) 09/09/19 20:28 Urine Ketones Neg mg/dL (Negative) 09/09/19 20:28 Urine Blood Neg (Negative) 09/09/19 20:28 Urine Nitrite Neg (Negative) 09/09/19 20:28 Urine Bilirubin Neg (Negative) 09/09/19 20:28 Urine Urobilinogen < 2.0 mg/dL (<2.0) 09/09/19 20:28 Ur Leukocyte Esterase Neg (Negative) 09/09/19 20:28 Urine WBC (Auto) 1.0 /HPF (0.0-6.0) 09/09/19 20:28 Urine RBC (Auto) 2.0 /HPF (0.0-6.0) 09/09/19 20:28 U Epithel Cells (Auto) 1.0 /HPF (0-13.0) 09/09/19 20:28 Urine Bacteria (Auto) 1+ /HPF (Negative) 11/28/19 20:28 Hyaline Casts 2 /LPF 09/09/19 20:28 Short CBC 09/09/19 Range/Units 18:51 WBC 13.5 H (4.5-11.0) K/mm3 Hgb 10.3 (10.1-14.3) gm/dl Hct 31.9 (30.3-42.9) % Plt Count 331 (140-440) K/mm3 BMP 09/09/19 18:51 Sodium 137 Potassium 3.7 Chloride 100.6 Carbon Dioxide 23 BUN 16 Creatinine 1.1 Glucose 50 L Calcium 9.6 Cardiac Enzymes 09/09/19 Range/Units 21:03 Total Creatine Kinase 91 (30-135) units/L Troponin T < 0.010 (0.00-0.029) ng/mL Liver Function 09/09/19 Range/Units 18:51 Total Bilirubin 0.30 (0.1-1.2) mg/dL AST 29 (5-40) units/L ALT 43 (7-56) units/L Alkaline Phosphatase 66 (35-129) units/L Albumin 3.3 L (3.9-5) g/dL Urine 09/09/19 Range/Units 20:28 Urine Color Straw (Yellow) Urine pH 6.0 (5.0-7.0) Ur Specific [place] 1.005 (1.003-1.030) Urine Protein <15 mg/dl (Negative) mg/dL Urine Glucose (UA) Neg (Negative) mg/dL - Imaging and Cardiology EKG: report reviewed Chest x-ray: report reviewed (no acute findings) CT scan - abdomen: report reviewed (no acute findings) CT Scan - head: report reviewed (no acute findings) Assessment and Plan Advance Directives: Yes ( full code) VTE prophylaxis?: Chemical, Not ordered Plan of care discussed with patient/family: Yes - Patient Problems (1) Hypoglycemia Current Visit: Yes Status: Acute Plan to address problem: Secondary to oral hypoglycemics and insulin We will stop the glipizide from now on Patient is to be only on insulin and coverage (2) Insulin dependent diabetes mellitus Current Visit: Yes Status: Chronic Plan to address problem: Continue home insulin Coverage for now Check hemoglobin A1c (3) HTN (hypertension) Current Visit: No Status: Chronic Qualifiers: Hypertension type: essential hypertension Qualified Code(s): I10 - Essential (primary) hypertension Plan to address problem: Continue antihypertensives in the form of amlodipine (4) OAB (overactive bladder) Current Visit: Yes Status: Chronic Plan to address problem: Continue oxybutynin (5) Rheumatoid arthritis Current Visit: No Status: Chronic Qualifiers: Laterality: unspecified laterality Plan to address problem: Patient on leflunomide and prednisone (6) Peripheral neuropathy Current Visit: Yes Status: Chronic Qualifiers: Peripheral neuropathy type: polyneuropathy, unspecified Qualified Code(s): G62.9 - Polyneuropathy, unspecified Plan to address problem: Continue gabapentin (7) DVT prophylaxis Current Visit: Yes Status: Acute Plan to address problem: Patient on ELIQUIS and GI prophylaxis
[2019-09-10] MEDS: OXYBUTYNIN 5 MG TAB PO SCH ×3 (05:49→22:50)
[2019-09-10] MEDS: INSULIN LISPRO 100 UNIT/ML SUB-Q SCH ×5 (06:30→20:39)
[2019-09-10 06:37] LABS: BUN/Creatinine Ratio 13; Blood Urea Nitrogen 14 mg/dL (7-17)
[2019-09-10 06:38] LABS: Calcium 9.2 mg/dL (8.4-10.2); Hemolysis Index 0
[2019-09-10] MEDS: D5W/0.9% NACL 1,000 ML IV SCH (06:51)
[2019-09-10] MEDS: GABAPENTIN 300 MG CAP PO SCH ×3 (08:00→20:36)
[2019-09-10] MEDS ORDERED: LEFLUNOMIDE 10 MG PO SCH (10:00)
[2019-09-10] MEDS: amLODIPine 10 MG TAB PO SCH (10:43)
[2019-09-10] MEDS: APIXABAN 5 MG TAB PO SCH ×2 (10:44→22:50)
[2019-09-10] MEDS: FOLIC ACID 1 MG TAB PO SCH (10:45)
[2019-09-10] MEDS: FAMOTIDINE 20 MG/2 ML INJ IV SCH ×2 (10:45→22:50)
[2019-09-10] MEDS: predniSONE 10 MG TAB PO SCH (10:45)
[2019-09-10] MEDS: MAGNESIUM OXIDE 400 MG TAB PO SCH ×2 (10:45→22:50)
--- NOTE | 2019-09-10 11:45 | Progress Note ---
Assessment and Plan Assessment and plan: -- Hypoglycemia Current Visit: Yes Status: Acute Secondary to oral hypoglycemics and insulin We will stop the glipizide , Lantus 10 units daily Increase as needed, diabetic education Accu-Chek sliding scale coverage -- Insulin dependent diabetes mellitus Current Visit: Yes Status: Chronic Continue home insulin lower dose Adjust as needed, hemoglobin A1c 6.1 -- HTN (hypertension) Current Visit: No Status: Chronic Continue antihypertensives in the form of amlodipine -- OAB (overactive bladder) Current Visit: Yes Status: Chronic Continue oxybutynin -- Rheumatoid arthritis Current Visit: No Status: Chronic Patient on leflunomide and prednisone -- Peripheral neuropathy Current Visit: Yes Status: Chronic Continue gabapentin --Obesity; BMI 37.6 advised exercise as tolerated and weight reduction been stable -- DVT prophylaxis Current Visit: Yes Status: Acute Patient on ELIQUIS and GI prophylaxis Monitor closely and adjust management as needed Possible discharge in 1 to 2 days if stable History Interval history: Patient seen and examined medical records reviewed Admitted with hypoglycemia, diabetic medications held, patient's blood sugars this morning and 300s Start low-dose Lantus, increase as needed Patient has no new complaints Vital signs noted Hospitalist Physical - Constitutional Vitals: Temp Pulse Resp BP Pulse Ox 96.8 F L 96 H 17 154/86 98 09/10/19 08:01 09/10/19 10:43 09/10/19 08:01 09/10/19 10:43 09/10/19 08:01 General appearance: Present: no acute distress, well-nourished, obese - EENT Eyes: Present: PERRL, EOM intact - Neck Neck: Present: supple, normal ROM - Respiratory Respiratory effort: normal Respiratory: bilateral: diminished, negative: rales, rhonchi, wheezing - Cardiovascular Rhythm: regular Heart Sounds: Present: S1 & S2 - Extremities Extremities: no ischemia, No edema - Abdominal General gastrointestinal: soft, non-tender, non-distended, normal bowel sounds - Integumentary Integumentary: Present: clear, warm - Psychiatric Psychiatric: appropriate mood/affect, cooperative - Neurologic Neurologic: CNII-XII intact, moves all extremities Results - Labs CBC & Chem 7: 09/09/19 18:51 09/10/19 05:52 Labs: Laboratory Last Values WBC 13.5 K/mm3 (4.5-11.0) H 09/09/19 18:51 RBC 3.58 M/mm3 (3.65-5.03) L 09/09/19 18:51 Hgb 10.3 gm/dl (10.1-14.3) 09/09/19 18:51 Hct 31.9 % (30.3-42.9) 09/09/19 18:51 MCV 89 fl (79-97) 09/09/19 18:51 MCH 29 pg (28-32) 09/09/19 18:51 MCHC 32 % (30-34) 09/09/19 18:51 RDW 18.2 % (13.2-15.2) H 09/09/19 18:51 Plt Count 331 K/mm3 (140-440) 09/09/19 18:51 Lymph % (Auto) 12.2 % (13.4-35.0) L 09/09/19 18:51 [place] % (Auto) 3.7 % (0.0-7.3) 09/09/19 18:51 Eos % (Auto) 0.5 % (0.0-4.3) 09/09/19 18:51 Baso % (Auto) 0.8 % (0.0-1.8) 09/09/19 18:51 Lymph # 1.7 K/mm3 (1.2-5.4) 09/09/19 18:51 [place] # 0.5 K/mm3 (0.0-0.8) 09/09/19 18:51 Eos # 0.1 K/mm3 (0.0-0.4) 09/09/19 18:51 Baso # 0.1 K/mm3 (0.0-0.1) 09/09/19 18:51 Seg Neutrophils % 82.8 % (40.0-70.0) H 09/09/19 18:51 Seg Neutrophils # 11.2 K/mm3 (1.8-7.7) H 09/09/19 18:51 PT 15.4 Sec. (12.2-14.9) H 09/09/19 21:03 INR 1.23 (0.87-1.13) H 09/09/19 21:03 APTT 29.2 Sec. (24.2-36.6) 09/09/19 21:03 Sodium 133 mmol/L (137-145) L 09/10/19 05:52 Potassium 4.7 mmol/L (3.6-5.0) D 09/10/19 05:52 Chloride 99.5 mmol/L (98-107) 09/10/19 05:52 Carbon Dioxide 22 mmol/L (22-30) 09/10/19 05:52 Anion Gap 16 mmol/L 09/10/19 05:52 BUN 14 mg/dL (7-17) 09/10/19 05:52 Creatinine 1.1 mg/dL (0.7-1.2) 09/10/19 05:52 Estimated GFR > 60 ml/min 09/10/19 05:52 BUN/Creatinine Ratio 13 % 09/10/19 05:52 Glucose 396 mg/dL (65-100) H 09/10/19 05:52 POC Glucose 390 (70-105) H 09/10/19 08:42 Hemoglobin A1c 6.1 % (4-6) H 09/10/19 05:52 Lactic Acid 1.40 mmol/L (0.7-2.0) 09/09/19 21:03 Calcium 9.2 mg/dL (8.4-10.2) 09/10/19 05:52 Magnesium 2.10 mg/dL (1.7-2.3) 09/09/19 21:03 Total Bilirubin 0.30 mg/dL (0.1-1.2) 09/09/19 18:51 AST 29 units/L (5-40) 09/09/19 18:51 ALT 43 units/L (7-56) 09/09/19 18:51 Alkaline Phosphatase 66 units/L (35-129) 09/09/19 18:51 Total Creatine Kinase 91 units/L (30-135) 09/09/19 21:03 Troponin T < 0.010 ng/mL (0.00-0.029) 09/09/19 21:03 Total Protein 7.1 g/dL (6.3-8.2) 09/09/19 18:51 Albumin 3.3 g/dL (3.9-5) L 09/09/19 18:51 Albumin/Globulin Ratio 0.9 % 09/09/19 18:51 Lipase 19 units/L (13-60) 09/09/19 18:51 TSH 0.780 mlU/mL (0.270-4.200) 09/09/19 21:03 Free T4 1.07 ng/dL (0.76-1.46) 09/09/19 21:03 Urine Color Straw (Yellow) 09/09/19 20:28 Urine Turbidity Clear (Clear) 09/09/19 20:28 Urine pH 6.0 (5.0-7.0) 09/09/19 20:28 Ur Specific [place] 1.005 (1.003-1.030) 09/09/19 20:28 Urine Protein <15 mg/dl mg/dL (Negative) 09/09/19 20:28 Urine Glucose (UA) Neg mg/dL (Negative) 09/09/19 20:28 Urine Ketones Neg mg/dL (Negative) 09/09/19 20:28 Urine Blood Neg (Negative) 09/09/19 20:28 Urine Nitrite Neg (Negative) 09/09/19 20:28 Urine Bilirubin Neg (Negative) 09/09/19 20:28 Urine Urobilinogen < 2.0 mg/dL (<2.0) 09/09/19 20:28 Ur Leukocyte Esterase Neg (Negative) 09/09/19 20:28 Urine WBC (Auto) 1.0 /HPF (0.0-6.0) 09/09/19 20:28 Urine RBC (Auto) 2.0 /HPF (0.0-6.0) 09/09/19 20:28 U Epithel Cells (Auto) 1.0 /HPF (0-13.0) 09/09/19 20:28 Urine Bacteria (Auto) 1+ /HPF (Negative) 09/09/19 20:28 Hyaline Casts 2 /LPF 09/09/19 20:28 Active Medications - Current Medications Current Medications: Generic Name Dose Route Start Last Admin Trade Name Freq PRN Reason Stop Dose Admin Acetaminophen 650 mg 09/10/19 03:45 Tylenol PO Q4H PRN Pain MILD(1-3)/Fever >100.5/BISHOP Acetaminophen/Hydrocodone Bitart 1 each 09/10/19 03:36 [place] 5/325 PO Q6H PRN PAIN (4-6) Amlodipine Besylate 10 mg 09/10/19 10:00 09/10/19 10:43 Amlodipine PO 10 mg QDAY GRAY Administration Apixaban 5 mg 09/10/19 10:00 09/10/19 10:44 Eliquis PO 5 mg Q12HR GRAY Administration Protocol Dextrose 50 ml 09/09/19 20:34 09/09/19 22:14 D50w (25gm) Syringe IV 50 ml Q30MIN PRN Administration Hypoglycemia Protocol Famotidine 20 mg 09/10/19 10:00 09/10/19 10:45 Pepcid IV 20 mg BID GRAY Administration Folic Acid 1 mg 09/10/19 10:00 09/10/19 10:45 Folvite PO 1 mg QDAY GRAY Administration Gabapentin 300 mg 09/10/19 08:00 09/10/19 08:00 Gabapentin PO 300 mg TID GRAY Administration Hydromorphone HCl 0.5 mg 09/10/19 03:45 Dilaudid IV Q3H PRN Pain , Severe (7-10) Dextrose/Sodium Chloride 1,000 mls @ 75 mls/hr 09/10/19 04:00 09/10/19 06:51 D5ns IV 75 mls/hr DIRECT GRAY Administration Insulin Glargine 15 units 09/11/19 08:00 Lantus SUB-Q QAMDIAB GRAY Insulin Glargine 10 units 09/10/19 11:41 Lantus SUB-Q 09/10/19 11:42 ONCE ONE Insulin Human Lispro 0 unit 09/10/19 04:00 09/10/19 08:43 Humalog SUB-Q 8 unit Q4H GRAY Administration Protocol Magnesium Oxide 400 mg 09/10/19 10:00 09/10/19 10:45 Mag-Ox PO 400 mg BID GRAY Administration Miscellaneous Medication 10 mg 09/10/19 10:00 Leflunomide [Arava] PO QDAY GRAY Ondansetron HCl 4 mg 09/10/19 03:36 Zofran Odt PO Q8H PRN Nausea Ondansetron HCl 4 mg 09/10/19 03:45 Zofran IV Q8H PRN Nausea And Vomiting Oxybutynin Chloride 5 mg 09/10/19 04:00 09/10/19 10:44 Ditropan PO 5 mg BID GRAY Administration Oxycodone/Acetaminophen 1 tab 09/10/19 03:45 Percocet 5/325 PO Q6H PRN Pain, Moderate (4-6) Prednisone 10 mg 09/10/19 10:00 09/10/19 10:45 Deltasone PO 10 mg QDAY GRAY Administration Sodium Chloride 10 ml 09/10/19 10:00 09/10/19 10:46 Sodium Chloride Flush Syringe 10 Ml IV 10 ml BID GRAY Administration Sodium Chloride 10 ml 09/10/19 03:45 Sodium Chloride Flush Syringe 10 Ml IV PRN PRN LINE FLUSH
[2019-09-10] MEDS ORDERED: INSULIN GLARGINE 100 UNITS/ML SUB-Q ONE (12:00)
[2019-09-10] MEDS ORDERED: glipiZIDE 10 MG TAB PO SCH (12:00)
[2019-09-10] MEDS ORDERED: INSULIN GLARGINE 100 UNITS/ML SUB-Q SCH (13:00)
[2019-09-11] MEDS: INSULIN LISPRO 100 UNIT/ML SUB-Q SCH ×5 (00:38→16:58)
[2019-09-11] MEDS: D5W/0.9% NACL 1,000 ML IV SCH (03:18)
[2019-09-11 07:25] LABS: Basophils # (Auto) 0.1 K/mm3 (0.0-0.1); Basophils % (Auto) 0.9 % (0.0-1.8); Eosinophils % (Auto) 0.4 % (0.0-4.3); Hemoglobin 9.4 gm/dl (10.1-14.3); Lymphocytes # (Auto) 1.9 K/mm3 (1.2-5.4); Lymphocytes % (Auto) 16.8 % (13.4-35.0); Mean Corpuscular HGB Conc 33 % (30-34); Mean Corpuscular Volume 90 fl (79-97); Monocytes # (Auto) 0.9 K/mm3 (0.0-0.8); Monocytes % (Auto) 8.4 % (0.0-7.3); Platelet Count 294 K/mm3 (140-440); Red Blood Count 3.24 M/mm3 (3.65-5.03); Red Cell Distribution Width 18.1 % (13.2-15.2)
[2019-09-11] MEDS: INSULIN GLARGINE 100 UNITS/ML SUB-Q SCH (07:30)
[2019-09-11 07:40] LABS: Alanine Aminotransferase 34 units/L (7-56); Albumin 2.8 g/dL (3.9-5); BUN/Creatinine Ratio 24; Blood Urea Nitrogen 19 mg/dL (7-17); Calcium 8.9 mg/dL (8.4-10.2); Hemolysis Index 8
[2019-09-11] MEDS ORDERED: INSULIN GLARGINE 100 UNITS/ML SUB-Q SCH (08:00)
[2019-09-11] MEDS: GABAPENTIN 300 MG CAP PO SCH ×2 (08:00→14:30)
[2019-09-11] MEDS ORDERED: FAMOTIDINE 20 MG TAB PO SCH (10:00)
[2019-09-11] MEDS: MAGNESIUM OXIDE 400 MG TAB PO SCH (10:58)
[2019-09-11] MEDS: APIXABAN 5 MG TAB PO SCH (10:58)
[2019-09-11] MEDS: predniSONE 10 MG TAB PO SCH (10:58)
[2019-09-11] MEDS: amLODIPine 10 MG TAB PO SCH (10:59)
[2019-09-11] MEDS: FOLIC ACID 1 MG TAB PO SCH (11:00)
[2019-09-11] MEDS: OXYBUTYNIN 5 MG TAB PO SCH (11:00)
[2019-09-11 11:56] VITALS: BP 130/83
--- NOTE | 2019-09-11 16:15 | Discharge Summary ---
Providers - Providers Date of Admission: 09/10/19 00:39 Date of discharge: 09/11/19 Attending physician: DUNG NUÑEZ 09/10/19 03:47 Consult to Dietitian/Nutrition [CONS] Routine Physician Instructions: Reason For Exam: Reason for Consult: Diet education Primary care physician: DIRECTOR SPEECH AND HEARING Hospitalization Condition: Fair Hospital course: -- Hypoglycemia Current Visit: Yes Status: Acute Secondary to oral hypoglycemics and insulin Glipizide stopped , Tresiba 30 units sq am and Novolin ss coverage.Patient is educated about SS coverage. 10 Increase as needed, diabetic education Accu-Chek sliding scale coverage Insulin dependent diabetes mellitus Current Visit: Yes Status: Chronic Continue home insulin Tresiba at lower dose of 30 instead of 50 units catie Adjust as needed, hemoglobin A1c 6.1 patient has f/u appointment with her pcp in 4 days HTN (hypertension) Current Visit: No Status: Chronic Continue antihypertensives in the form of amlodipine -- OAB (overactive bladder) Current Visit: Yes Status: Chronic Continue oxybutynin -- Rheumatoid arthritis Current Visit: No Status: Chronic Patient on leflunomide and prednisone -- Peripheral neuropathy Current Visit: Yes Status: Chronic Continue gabapentin --Obesity; BMI 37.6 advised exercise as tolerated and weight reduction been stable Disposition: DC-01 TO HOME OR SELFCARE Core Measure Documentation - Palliative Care Palliative Care/ Comfort Measures: Not Applicable - Core Measures Any of the following diagnoses?: none Exam - Constitutional Vitals: Temp Pulse Resp BP Pulse Ox 98.0 F 93 H 18 130/83 99 09/11/19 11:49 09/11/19 11:49 09/11/19 11:49 09/11/19 11:49 09/11/19 11:49 General appearance: Present: no acute distress, well-nourished - EENT Eyes: Present: PERRL ENT: hearing intact, clear oral mucosa - Neck Neck: Present: supple, normal ROM - Respiratory Respiratory effort: normal Respiratory: bilateral: CTA - Cardiovascular Heart rate: 78 Rhythm: regular Heart Sounds: Present: S1 & S2. Absent: rub, click - Extremities Extremities: pulses symmetrical, No edema Peripheral Pulses: within normal limits - Abdominal General gastrointestinal: Present: soft, non-tender, non-distended, normal bowel sounds Female genitourinary: Present: normal - Integumentary Integumentary: Present: clear, warm, dry - Musculoskeletal Musculoskeletal: gait normal, strength equal bilaterally - Psychiatric Psychiatric: appropriate mood/affect, intact judgment & insight - Neurologic Neurologic: CNII-XII intact, moves all extremities - Allied Health Allied health notes reviewed: nursing, case management Plan Activity: no restrictions Diet: low carbohydrate Follow up with: PRIMARY CARE,MD [Primary Care Provider] - 3-5 Days
== END 2019-09-11 18:11 | disposition home or self-care (01) | DRG 637 ==
LOC: ED 18:00 → 4A 09-10 00:39
PROVIDERS: ADMIT Internal Medicine; ATTEND Internal Medicine
DX: E11.649 Type 2 diabetes mellitus with hypoglycemia without coma (principal); G93.41 Metabolic encephalopathy; I10 Essential (primary) hypertension; N32.81 Overactive bladder; M06.9 Rheumatoid arthritis, unspecified; T38.3X5A Adverse effect of insulin and oral hypoglycemic [antidiabetic] drugs, initial encounter; E11.42 Type 2 diabetes mellitus with diabetic polyneuropathy; E66.9 Obesity, unspecified; K21.9 Gastro-esophageal reflux disease without esophagitis; M19.90 Unspecified osteoarthritis, unspecified site; G43.909 Migraine, unspecified, not intractable, without status migrainosus; J45.909 Unspecified asthma, uncomplicated; E05.90 Thyrotoxicosis, unspecified without thyrotoxic crisis or storm; Z79.4 Long term (current) use of insulin; Z68.37 Body mass index [BMI] 37.0-37.9, adult; Z71.3 Dietary counseling and surveillance; Y92.89 Other specified places as the place of occurrence of the external cause; Z86.711 Personal history of pulmonary embolism; Z79.01 Long term (current) use of anticoagulants; Z86.718 Personal history of other venous thrombosis and embolism; Z95.5 Presence of coronary angioplasty implant and graft; Z82.49 Family history of ischemic heart disease and other diseases of the circulatory system; Z88.0 Allergy status to penicillin; Z88.2 Allergy status to sulfonamides; Z91.040 Latex allergy status; Z79.899 Other long term (current) drug therapy
CPT/HCPCS: 36415; 70450; 71045; 72170; 74176; 80048; 80053; 81001; 82140; 82550; 82962; 83036; 83690; 83735; 84439; 84443; 84484; 85025; 85610; 85730; 87040; 87086; 93005; 93010; G0378; J1815; J2354; J2405; J2765; J2930; J3010; J7030; J7042; J7512

== ENCOUNTER 2019-12-03 08:07 | Emergency (ER) | payer MEDICARE ==
[2019-12-03] MEDS ORDERED: SODIUM CHLORIDE 0.9% 1000 ML 1,000 ML IV ONE (08:50)
[2019-12-03] MEDS ORDERED: ONDANSETRON 4 MG/2 ML INJ IV ONE (08:50)
[2019-12-03] MEDS ORDERED: MORPHINE 4 MG/1 ML INJ IV ONE (08:50)
--- NOTE | 2019-12-03 09:10 | Emergency Department Report ---
ED General Adult HPI - General Chief complaint: Nausea/Vomiting/Diarrhea Stated complaint: VOMIT/NAUSEA/DIZZY Time Seen by Provider: 12/03/19 08:41 Source: patient Mode of arrival: Wheelchair Limitations: Physical Limitation - History of Present Illness Initial comments: Patient is a 54-year-old female presents emergency room with complaints of intermittent nausea and vomiting that began a week ago. She states that she saw her primary care physician and was diagnosed with a UTI. She states that she began taking Levaquin yesterday. She has not been taking anything for the nausea. She states that she also has a strong odor to her urine and const ipation where she had to manually disimpact herself yesterday. She denies any fever, abdominal pain, diarrhea. She states that she has an allergy to latex, sulfa, penicillin. She states that penicillin just causes itching but no edema or angioedema. - Related Data Home Medications Medication Instructions Recorded Confirmed Last Taken Ergocalciferol [Vitamin D2] 1 cap PO QWEEK 08/29/17 09/10/19 08/25/17 06:30 Gabapentin 300 mg PO TID 08/29/17 09/10/19 08/29/17 06:30 Insulin Aspart (Nf) [NovoLOG See Protocol SUB-Q TID 08/29/17 09/10/19 Unknown Flexpen] Insulin Glargine,Hum.rec.anlog 30 units SUB-Q DAILY 08/29/17 09/10/19 08/29/17 06:30 [Lantus Solostar] Leflunomide [Arava] 10 mg PO QDAY 08/29/17 09/10/19 08/28/17 13:45 Magnesium Oxide [Bennett] 500 mg PO BID 08/29/17 09/10/19 08/29/17 06:30 glipiZIDE [Glipizide] 10 mg PO DAILY 08/29/17 09/10/19 08/28/17 13:45 Previous Rx's Medication Instructions Recorded Last Taken Type Folic Acid 1 mg PO QDAY #30 capsule 11/02/16 08/29/17 13:45 Rx Oxybutynin [Ditropan] 5 mg PO BID #60 tablet 11/02/16 08/29/17 06:30 Rx Amlodipine Besylate [Norvasc] 10 mg PO QDAY #30 tablet 09/01/17 Unknown Rx Apixaban [Eliquis] 5 mg PO Q12HR #60 tablet 09/01/17 Unknown Rx HYDROcodone/APAP 5-325 [Ponemah 1 each PO Q6HR PRN #8 tablet 10/30/18 Unknown Rx 5-325 mg TAB] Ondansetron [Zofran Odt] 4 mg PO Q8HR PRN #10 tab.rapdis 03/10/19 Unknown Rx Apixaban [Eliquis] 5 mg PO Q12HR tablet 09/11/19 Unknown Rx Famotidine [Pepcid] 20 mg PO BID #60 tablet 09/11/19 Unknown Rx Insulin Degludec [Tresiba] 30 unit SQ QAM #5 pen 09/11/19 Unknown Rx amLODIPine 10 mg PO QDAY tablet 09/11/19 Unknown Rx Docusate Sodium [Colace] 100 mg PO BID PRN #14 capsule 12/03/19 Unknown Rx Ondansetron [Zofran Odt] 4 mg PO Q8HR PRN #14 tab.rapdis 12/03/19 Unknown Rx Promethazine HCl [Phenergan SUPPOS] 25 mg RC Q8HR PRN #10 supp.rect 12/03/19 Unknown Rx Allergies Allergy/AdvReac Type Severity Reaction Status Date / Time latex Allergy Rash Verified 12/03/19 08:10 Sulfa (Sulfonamide Allergy Unknown Verified 12/03/19 08:10 Antibiotics) Penicillins AdvReac Itching Verified 12/03/19 08:10 ED Review of Systems ROS: Stated complaint: VOMIT/NAUSEA/DIZZY Other details as noted in HPI Comment: All other systems reviewed and negative ED Past Medical Hx - Past Medical History Hx Hypertension: Yes Hx Heart Attack/AMI: No Hx Congestive Heart Failure: No Hx Diabetes: Yes Hx GERD: Yes (2010) Hx Renal Disease: No Hx Arthritis: Yes Hx Headaches / Migraines: Yes Hx Asthma: No Hx COPD: No Additional medical history: lupus, compressed disc, hyperthyroidism, rheumatoid arthritis, DVT/PE - Surgical History Hx Coronary Stent: Yes Hx Pacemaker: No Hx Internal Defibrillator: No Additional Surgical History: ectopic , D&C x 3. - Social History Smoking Status: Never Smoker Substance Use Type: None - Medications Home Medications: Home Medications Medication Instructions Recorded Confirmed Last Taken Type Folic Acid 1 mg PO QDAY #30 capsule 11/02/16 09/10/19 08/29/17 13:45 Rx Oxybutynin [Ditropan] 5 mg PO BID #60 tablet 11/02/16 09/10/19 08/29/17 06:30 Rx Ergocalciferol [Vitamin D2] 1 cap PO QWEEK 08/29/17 09/10/19 08/25/17 06:30 History Gabapentin 300 mg PO TID 08/29/17 09/10/19 08/29/17 06:30 History Insulin Aspart (Nf) [NovoLOG See Protocol SUB-Q TID 08/29/17 09/10/19 Unknown History Flexpen] Insulin Glargine,Hum.rec.anlog 30 units SUB-Q DAILY 08/29/17 09/10/19 08/29/17 0 6:30 History [Lantus Solostar] Leflunomide [Arava] 10 mg PO QDAY 08/29/17 09/10/19 08/28/17 13:45 History Magnesium Oxide [Bennett] 500 mg PO BID 08/29/17 09/10/19 08/29/17 06:30 History glipiZIDE [Glipizide] 10 mg PO DAILY 08/29/17 09/10/19 08/28/17 13:45 History Amlodipine Besylate [Norvasc] 10 mg PO QDAY #30 tablet 09/01/17 09/10/19 Unknown Rx Apixaban [Eliquis] 5 mg PO Q12HR #60 tablet 09/01/17 09/10/19 Unknown Rx HYDROcodone/APAP 5-325 [Ponemah 1 each PO Q6HR PRN #8 tablet 10/30/18 09/10/19 Unknown Rx 5-325 mg TAB] Ondansetron [Zofran Odt] 4 mg PO Q8HR PRN #10 tab.rapdis 03/10/19 09/10/19 Unknown Rx Apixaban [Eliquis] 5 mg PO Q12HR tablet 09/11/19 Unknown Rx Famotidine [Pepcid] 20 mg PO BID #60 tablet 09/11/19 Unknown Rx Insulin Degludec [Tresiba] 30 unit SQ QAM #5 pen 09/11/19 Unknown Rx amLODIPine 10 mg PO QDAY tablet 09/11/19 Unknown Rx Docusate Sodium [Colace] 100 mg PO BID PRN #14 capsule 12/03/19 Unknown Rx Ondansetron [Zofran Odt] 4 mg PO Q8HR PRN #14 tab.rapdis 12/03/19 Unknown Rx Promethazine HCl [Phenergan SUPPOS] 25 mg RC Q8HR PRN #10 supp.rect 12/03/19 Unknown Rx ED Physical Exam - General Limitations: Physical Limitation General appearance: alert, in no apparent distress - Head Head exam: Present: atraumatic, normocephalic - Eye Eye exam: Present: normal appearance - ENT ENT exam: Present: mucous membranes moist - Respiratory Respiratory exam: Present: normal lung sounds bilaterally. Absent: respiratory distress, wheezes, rales, rhonchi, stridor, chest wall tenderness, accessory muscle use, decreased breath sounds, prolonged expiratory - Cardiovascular Cardiovascular Exam: Present: regular rate, normal rhythm, normal heart sounds. Absent: systolic murmur, diastolic murmur, rubs, gallop - GI/Abdominal GI/Abdominal exam: Present: soft, normal bowel sounds. Absent: distended, tenderness, guarding, rebound, rigid - Neurological Exam Neurological exam: Present: alert, oriented X3 - Psychiatric Psychiatric exam: Present: normal affect, normal mood - Skin Skin exam: Present: warm, dry, intact ED Course Vital Signs 12/03/19 12/03/19 12/03/19 08:11 09:32 12:47 Temperature 98.9 F Pulse Rate 99 H 90 Respiratory 18 18 16 Rate Blood Pressure 125/58 Blood Pressure 121/60 [Left] O2 Sat by Pulse 100 100 Oximetry ED Medical Decision Making - Lab Data Result diagrams: 12/03/19 09:55 12/03/19 09:55 - Radiology Data Radiology results: report reviewed, image reviewed ABDOMEN 2 VIEWS INDICATION / CLINICAL INFORMATION: constipation, n/v. COMPARISON: None available. FINDINGS: BOWEL: No dilated bowel. FREE AIR / EXTRALUMINAL GAS: None seen. CALCIFICATIONS: No significant abnormal calcifications. ADDITIONAL FINDINGS: None. LUNGS: Visualized lungs show no significant abnormality. SKELETAL STRUCTURES: No significant abnormality. IMPRESSION: 1. No significant abnormality. Signer Name: Duran Gerard MD Signed: 12/03/2019 9:26 AM Workstation Name: [id number] Transcribed By: BONNY Dictated By: Duran Gerard MD Electronically Authenticated By: Duran Gerard MD Signed Date/Time: 12/03/19925 DD/ 4 TD/TT: - Medical Decision Making Patient is a 54-year-old female presents emergency room with complaints of intermittent nausea and vomiting that began a week ago. She states that she saw her primary care physician and was diagnosed with a UTI. She states that she began taking Levaquin yesterday. She has not been taking anything for the nausea. She states that she also has a strong odor to her urine and constipation where she had to manually disimpact herself yesterday. She denies any fever, abdominal pain, diarrhea. She states that she has an allergy to latex, sulfa, penicillin. She states that penicillin just causes itching but no edema or angioedema. vitals are normal. no abd ttp, no guarding, no rebound, no rigidity. labs are stable. UA shows WBCs and small amount of leukocyte esterase. pt has only taken one day of levaquin. XR abd no acute process. Patient given 1 L fluids, Zofran, morphine, Reglan. Patient was feeling much better. Patient was able to tolerate p.o. intake while in the ED. patient given prescription for Zofran, Phenergan suppositories, Colace. advised pt to please use medication as prescribed. Increase your water intake. Eat a bland diet. Please complete the course of antibiotics that you were given by your primary care doctor. Please see your primary care doctor in the next 3 to 5 days to have your urine retested. Return to the emergency room for any new or worsening symptoms. - Differential Diagnosis obstruction, UTI, pyelonephritis, gastritis, gastroenteritis, colitis Critical care attestation.: If time is entered above; I have spent that time in minutes in the direct care of this critically ill patient, excluding procedure time. ED Disposition Clinical Impression: Nausea and vomiting Qualifiers: Vomiting type: unspecified Vomiting Intractability: non-intractable Qualified Code(s): R11.2 - Nausea with vomiting, unspecified UTI (urinary tract infection) Qualifiers: Urinary tract infection type: acute cystitis Hematuria presence: without hematuria Qualified Code(s): N30.00 - Acute cystitis without hematuria Disposition: TO HOME OR SELFCARE Is pt being admited?: No Does the pt Need Aspirin: No Condition: Stable Instructions: Urinary Tract Infection in Women (ED), Acute Nausea and Vomiting (ED) Additional Instructions: Please use medication as prescribed. Increase your water intake. Eat a bland diet. Please complete the course of antibiotics that you were given by your primary care doctor. Please see your primary care doctor in the next 3 to 5 days to have your urine retested. Return to the emergency room for any new or worsening symptoms. Prescriptions: Docusate Sodium [Colace] 100 mg PO BID PRN #14 capsule PRN Reason: constipation Promethazine HCl [Phenergan SUPPOS] 25 mg RC Q8HR PRN #10 supp.rect PRN Reason: Nausea And Vomiting Ondansetron [Zofran Odt] 4 mg PO Q8HR PRN #14 tab.rapdis PRN Reason: Nausea And Vomiting Referrals: JUAN F RUSH MD [Primary Care Provider] - 3-5 Days Time of Disposition: 12:21 Print Language: FILIPINO
--- NOTE | 2019-12-03 09:30 | XRay Report ---
ABDOMEN 2 VIEWS INDICATION / CLINICAL INFORMATION: constipation, n/v. COMPARISON: None available. FINDINGS: BOWEL: No dilated bowel. FREE AIR / EXTRALUMINAL GAS: None seen. CALCIFICATIONS: No significant abnormal calcifications. ADDITIONAL FINDINGS: None. LUNGS: Visualized lungs show no significant abnormality. SKELETAL STRUCTURES: No significant abnormality. IMPRESSION: 1. No significant abnormality. Signer Name: Duran Gerard MD Signed: 12/03/2019 9:26 AM Workstation Name: [id number]
[2019-12-03 10:17] LABS: Basophils # (Auto) 0.1 K/mm3 (0.0-0.1); Basophils % (Auto) 1.3 % (0.0-1.8); Eosinophils # (Auto) 0.1 K/mm3 (0.0-0.4); Eosinophils % (Auto) 1.2 % (0.0-4.3); Hematocrit 30.7 % (30.3-42.9); Lymphocytes # (Auto) 1.1 K/mm3 (1.2-5.4); Lymphocytes % (Auto) 10.7 % (13.4-35.0); Mean Corpuscular HGB Conc 33 % (30-34); Mean Corpuscular Volume 88 fl (79-97); Monocytes # (Auto) 0.8 K/mm3 (0.0-0.8); Monocytes % (Auto) 7.6 % (0.0-7.3); Platelet Count 299 K/mm3 (140-440); Red Cell Distribution Width 14.8 % (13.2-15.2)
[2019-12-03 10:30] LABS: Alanine Aminotransferase 18 units/L (7-56); Albumin 2.8 g/dL (3.9-5); BUN/Creatinine Ratio 9; Blood Urea Nitrogen 9 mg/dL (7-17); Calcium 9.7 mg/dL (8.4-10.2); Hemolysis Index 20
[2019-12-03 11:07] LABS: Bacteria,Urine 2+ /HPF (Negative); Bilirubin,Urine NEG (Negative); Blood,Urine NEG (Negative); Color,Urine Straw (Yellow); Protein,Urine <15 mg/dL mg/dL (Negative); Urobilinogen,Urine < 2.0 mg/dL (<2.0)
[2019-12-03] MEDS ORDERED: METOCLOPRAMIDE 10 MG/2 ML INJ IV ONE (11:37)
[2019-12-03 12:48] VITALS: BP 121/60
== END 2019-12-03 12:46 | disposition home or self-care (01) ==
LOC: ED 08:07
DX: R11.2 Nausea with vomiting, unspecified (principal); N39.0 Urinary tract infection, site not specified; I10 Essential (primary) hypertension; E11.9 Type 2 diabetes mellitus without complications; K21.9 Gastro-esophageal reflux disease without esophagitis; M19.90 Unspecified osteoarthritis, unspecified site; G43.909 Migraine, unspecified, not intractable, without status migrainosus; Z98.890 Other specified postprocedural states; Z79.899 Other long term (current) drug therapy; Z88.0 Allergy status to penicillin; Z88.2 Allergy status to sulfonamides; Z91.040 Latex allergy status
CPT/HCPCS: 36415; 74019; 80053; 81001; 83690; 85025; 87086; 96361; 96374; 96375; 99284; J2270; J2405; J2765; J7030

== ENCOUNTER 2022-01-17 16:23 | Emergency (ER) | payer MEDICARE ==
[2022-01-17 18:22] VITALS: BP 170/86
[2022-01-17] MEDS ORDERED: MORPHINE 4 MG/1 ML INJ IV ONE (18:55)
[2022-01-17] MEDS ORDERED: PANTOPRAZOLE 40 MG INJ IV ONE (18:55)
[2022-01-17] MEDS ORDERED: SODIUM CHLORIDE 0.9% 1000 ML 1,000 ML IV ONE (18:55)
[2022-01-17] MEDS ORDERED: ONDANSETRON 4 MG/2 ML INJ IV ONE (18:55)
--- NOTE | 2022-01-17 19:03 | Emergency Department Report ---
ED Abdominal Pain HPI - General Chief Complaint: Abdominal Pain Stated Complaint: THROWING BILE Time Seen by Provider: 01/17/22 18:47 Source: patient Mode of arrival: Ambulatory Limitations: No Limitations - History of Present Illness Initial Comments: Patient is 56 years old female with history of gastric ulcer. Patient presented to the ER complaining of abdominal pain mainly left upper quadrant with no radiation. Patient stated that her symptoms been going on for several days. She stated that she has been evaluated by linen room attendant and recommended a colonoscopy. She stated that she had a CT abdomen and pelvis 2 months ago and she was told that it was normal. Patient reported nausea and vomiting. She denied any hematemesis or melena. MD Complaint: abdominal pain -: week(s) Location: LUQ Radiation: none Migration to: no migration Severity scale (0 -10): 10 Quality: sharp Improves With: vomiting Associated Symptoms: nausea, vomiting, constipation - Related Data Home Medications Medication Instructions Recorded Confirmed Last Taken Ergocalciferol [Vitamin D2] 1 cap PO QWEEK 08/29/17 09/10/19 08/25/17 06:30 Gabapentin 300 mg PO TID 08/29/17 09/10/19 08/29/17 06:30 Insulin Aspart (Nf) [NovoLOG See Protocol SUB-Q TID 08/29/17 09/10/19 Unknown Flexpen] Insulin Glargine,Hum.rec.anlog 30 units SUB-Q DAILY 08/29/17 09/10/19 08/29/17 06:30 [Lantus Solostar] Leflunomide [Arava] 10 mg PO QDAY 08/29/17 09/10/19 08/28/17 13:45 Magnesium Oxide [Bennett] 500 mg PO BID 08/29/17 09/10/19 08/29/17 06:30 glipiZIDE [Glipizide] 10 mg PO DAILY 08/29/17 09/10/19 08/28/17 13:45 Previous Rx's Medication Instructions Recorded Last Taken Type Folic Acid 1 mg PO QDAY #30 capsule 11/02/16 08/29/17 13:45 Rx Oxybutynin [Ditropan] 5 mg PO BID #60 tablet 11/02/16 08/29/17 06:30 Rx Amlodipine Besylate [Norvasc] 10 mg PO QDAY #30 tablet 09/01/17 Unknown Rx Apixaban [Eliquis] 5 mg PO Q12HR #60 tablet 09/01/17 Unknown Rx HYDROcodone/APAP 5-325 [Ryde 1 each PO Q6HR PRN #8 tablet 10/30/18 Unknown Rx 5-325 mg TAB] Ondansetron [Zofran Odt] 4 mg PO Q8HR PRN #10 tab.rapdis 03/10/19 Unknown Rx Apixaban [Eliquis] 5 mg PO Q12HR tablet 09/11/19 Unknown Rx Famotidine [Pepcid] 20 mg PO BID #60 tablet 09/11/19 Unknown Rx Insulin Degludec [Tresiba] 30 unit SQ QAM #5 pen 09/11/19 Unknown Rx amLODIPine 10 mg PO QDAY tablet 09/11/19 Unknown Rx Docusate Sodium [Colace] 100 mg PO BID PRN #14 capsule 12/03/19 Unknown Rx Ondansetron [Zofran Odt] 4 mg PO Q8HR PRN #14 tab.rapdis 12/03/19 Unknown Rx Promethazine HCl [Phenergan SUPPOS] 25 mg RC Q8HR PRN #10 supp.rect 12/03/19 Unknown Rx Allergies Allergy/AdvReac Type Severity Reaction Status Date / Time latex Allergy Rash Verified 12/03/19 08:10 Sulfa (Sulfonamide Allergy Unknown Verified 12/03/19 08:10 Antibiotics) Penicillins AdvReac Itching Verified 12/03/19 08:10 ED Review of Systems ROS: Stated complaint: THROWING BILE Other details as noted in HPI Comment: All other systems reviewed and negative Constitutional: denies: chills, fever Respiratory: denies: cough, shortness of breath, SOB with exertion, SOB at rest Cardiovascular: denies: chest pain, palpitations Gastrointestinal: abdominal pain, nausea, vomiting, constipation. denies: diarrhea, hematemesis, melena, hematochezia Musculoskeletal: denies: back pain Neurological: denies: headache, weakness, numbness, paresthesias, confusion ED Past Medical Hx - Past Medical History Hx Hypertension: Yes Hx Heart Attack/AMI: No Hx Congestive Heart Failure: No Hx Diabetes: Yes Hx GERD: Yes (2010) Hx Renal Disease: No Hx Arthritis: Yes Hx Headaches / Migraines: Yes Hx Asthma: No Hx COPD: No Additional medical history: lupus, compressed disc, hyperthyroidism, rheumatoid arthritis, DVT/PE - Surgical History Hx Coronary Stent: Yes Hx Pacemaker: No Hx Internal Defibrillator: No Additional Surgical History: ectopic , D&C x 3. - Social History Smoking Status: Never Smoker Substance Use Type: None - Medications Home Medications: Home Medications Medication Instructions Recorded Confirmed Last Taken Type Folic Acid 1 mg PO QDAY #30 capsule 11/02/16 09/10/19 08/29/17 13:45 Rx Oxybutynin [Ditropan] 5 mg PO BID #60 tablet 11/02/16 09/10/19 08/29/17 06:30 Rx Ergocalciferol [Vitamin D2] 1 cap PO QWEEK 08/29/17 09/10/19 08/25/17 06:30 History Gabapentin 300 mg PO TID 08/29/17 09/10/19 08/29/17 06:30 History Insulin Aspart (Nf) [NovoLOG See Protocol SUB-Q TID 08/29/17 09/10/19 Unknown History Flexpen] Insulin Glargine,Hum.rec.anlog 30 units SUB-Q DAILY 08/29/17 09/10/19 08/29/17 06:30 History [Lantus Solostar] Leflunomide [Arava] 10 mg PO QDAY 08/29/17 09/10/19 08/28/17 13:45 History Magnesium Oxide [Bennett] 500 mg PO BID 08/29/17 09/10/19 08/29/17 06:30 History glipiZIDE [Glipizide] 10 mg PO DAILY 08/29/17 09/10/19 08/28/17 13:45 History Amlodipine Besylate [Norvasc] 10 mg PO QDAY #30 tablet 09/01/17 09/10/19 Unknown Rx Apixaban [Eliquis] 5 mg PO Q12HR #60 tablet 09/01/17 09/10/19 Unknown Rx HYDROcodone/APAP 5-325 [Ryde 1 each PO Q6HR PRN #8 tablet 10/30/18 09/10/19 Unknown Rx 5-325 mg TAB] Ondansetron [Zofran Odt] 4 mg PO Q8HR PRN #10 tab.rapdis 03/10/19 09/10/19 Unknown Rx Apixaban [Eliquis] 5 mg PO Q12HR tablet 09/11/19 Unknown Rx Famotidine [Pepcid] 20 mg PO BID #60 tablet 09/11/19 Unknown Rx Insulin Degludec [Tresiba] 30 unit SQ QAM #5 pen 09/11/19 Unknown Rx amLODIPine 10 mg PO QDAY tablet 09/11/19 Unknown Rx Docusate Sodium [Colace] 100 mg PO BID PRN #14 capsule 12/03/19 Unknown Rx Ondansetron [Zofran Odt] 4 mg PO Q8HR PRN #14 tab.rapdis 12/03/19 Unknown Rx Promethazine HCl [Phenergan SUPPOS] 25 mg RC Q8HR PRN #10 supp.rect 12/03/19 Unknown Rx ED Physical Exam - General Limitations: No Limitations General appearance: alert, in no apparent distress - Head Head exam: Present: atraumatic, normocephalic, normal inspection - Eye Eye exam: Present: normal appearance, PERRL - ENT ENT exam: Present: normal exam, normal orophraynx, mucous membranes moist - Neck Neck exam: Present: normal inspection, full ROM. Absent: tenderness, meningismus - Respiratory Respiratory exam: Present: normal lung sounds bilaterally - Cardiovascular Cardiovascular Exam: Present: regular rate, normal rhythm, normal heart sounds - GI/Abdominal GI/Abdominal exam: Present: soft, normal bowel sounds. Absent: distended, ten derness, guarding, rebound, rigid, organomegaly, mass, bruit, pulsatile mass, hernia - Extremities Exam Extremities exam: Present: normal inspection, full ROM, normal capillary refill. Absent: tenderness, pedal edema, joint swelling, calf tenderness - Back Exam Back exam: Present: normal inspection, full ROM. Absent: CVA tenderness (R), CVA tenderness (L) - Neurological Exam Neurological exam: Present: alert, oriented X3, CN II-XII intact, normal gait, reflexes normal. Absent: motor sensory deficit - Psychiatric Psychiatric exam: Present: normal mood - Skin Skin exam: Present: warm, intact, normal color ED Course Vital Signs 01/17/22 18:17 Temperature 98.2 F Pulse Rate 77 Respiratory 18 Rate Blood Pressure 170/86 Blood Pressure 170/86 [Right] O2 Sat by Pulse 97 Oximetry ED Medical Decision Making - Lab Data Result diagrams: 01/17/22 19:08 01/17/22 19:08 - Radiology Data Radiology results: report reviewed - Medical Decision Making Patient is 56 years old female with history of gastric ulcer. Patient presented to the ER complaining of abdominal pain mainly left upper quadrant with no radiation. Patient stated that her symptoms been going on for several days. She stated that she has been evaluated by linen room attendant and recommended a colonoscopy. She stated that she had a CT abdomen and pelvis 2 months ago and she was told that it was normal. Patient reported nausea and vomiting. She denied any hematemesis or melena. Patient received morphine and Zofran. Patient stated that she is feeling much better. Patient found to have a blood glucose of 50 she received dextrose 50% and showed significant improvement. CT abdomen pelvis showed left hydronephrosis most likely secondary to fibroid uterus compressing on the left ureters. Patient advised to follow-up with her nipple threader and urologist in the next 2 to 3 days and to return to the ER if she develop any new symptoms. Critical care attestation.: If time is entered above; I have spent that time in minutes in the direct care of this critically ill patient, excluding procedure time. ED Disposition Clinical Impression: Acute abdominal pain, Hydronephrosis, left, Fibroid uterus Disposition: 01 HOME / SELF CARE / HOMELESS Is pt being admited?: No Condition: Stable Instructions: Abdominal Pain (ED), Uterine Fibroids, Hydronephrosis Referrals: BERNARDINO ABREU MD [Primary Care Provider] - 3-5 Days
[2022-01-17] MEDS ORDERED: DEXTROSE 50% IN WATER (25GM) 50 ML VIAL IV ONE (19:12)
[2022-01-17] MEDS ORDERED: DEXTROSE 50% IN WATER (25GM) 50 ML SYRINGE IV ONE (19:14)
[2022-01-17 19:39] LABS: Basophils # (Auto) 0.1 K/mm3 (0.0-0.1); Basophils % (Auto) 0.9 % (0.0-1.8); Eosinophils # (Auto) 0.1 K/mm3 (0.0-0.4); Eosinophils % (Auto) 1.5 % (0.0-4.3); Hematocrit 35.4 % (30.3-42.9); Hemoglobin 11.3 gm/dl (10.1-14.3); Lymphocytes # (Auto) 2.4 K/mm3 (1.2-5.4); Lymphocytes % (Auto) 26.4 % (13.4-35.0); Mean Corpuscular HGB Conc 32 % (30-34); Mean Corpuscular Volume 91 fl (79-97); Monocytes # (Auto) 0.9 K/mm3 (0.0-0.8); Monocytes % (Auto) 10.5 % (0.0-7.3); Platelet Count 243 K/mm3 (140-440); Red Blood Count 3.88 M/mm3 (3.65-5.03); Red Cell Distribution Width 16.4 % (13.2-15.2)
[2022-01-17 19:52] LABS: Alanine Aminotransferase 24 units/L (7-56); Albumin 3.4 g/dL (3.9-5); BUN/Creatinine Ratio 16; Blood Urea Nitrogen 13 mg/dL (7-17); Calcium 9.1 mg/dL (8.4-10.2); Hemolysis Index 3
[2022-01-17 19:59] LABS: Bilirubin,Direct < 0.2 mg/dL (0-0.2)
--- NOTE | 2022-01-17 22:14 | Cat Scan Report ---
CT ABDOMEN AND PELVIS WITH CONTRAST INDICATION / CLINICAL INFORMATION: Pt complains of abdominal pain and vomiting x 3 days. TECHNIQUE: Axial CT images were obtained through the abdomen and pelvis after 100 cc of Omnipaque [address] scans at this location are performed using CT dose reduction for ALARA by means of automated exposure control. COMPARISON: None available. FINDINGS: LOWER CHEST: No significant abnormality. AORTA / ARTERIES: No significant abnormality. IVC / VEINS: No significant abnormality. LYMPH NODES: No significant adenopathy. COLON: No significant abnormality. APPENDIX: No significant abnormality. STOMACH / SMALL BOWEL: No significant abnormality. PERITONEUM: No free fluid. No free air. No fluid collection. LIVER: No significant abnormality. GALLBLADDER: No significant abnormality. BILE DUCTS: No significant abnormality. PANCREAS: No significant abnormality. SPLEEN: No significant abnormality. ADRENALS: No significant abnormality. RIGHT KIDNEY / URETER: Right renal cyst. No hydronephrosis. LEFT KIDNEY / URETER: There is moderate hydronephrosis which may be secondary to compression of the u reter from a fibroid uterus. URINARY BLADDER: No significant abnormality. REPRODUCTIVE ORGANS: There is a fibroid uterus. SKELETAL SYSTEM: Scattered degeneration. ADDITIONAL FINDINGS: None. IMPRESSION: 1. Moderate left hydronephrosis which may be secondary to compression from a fibroid uterus. No nephr olithiasis or ureteral stone. 2. Additional findings as above. Signer Name: Chester Ramirez DO Signed: 01/17/2022 10:09 PM Workstation Name: [id number]
[2022-01-17 23:27] LABS: Color,Urine Colorless (Yellow)
[2022-01-17 23:28] LABS: Bilirubin,Urine Negative (Negative); Blood,Urine Negative (Negative); Protein,Urine <15 mg/dL mg/dL (Negative); RBC,Urine < 1.0 /HPF (0.0-6.0); Urobilinogen,Urine < 2.0 mg/dL (<2.0); WBC,Urine < 1.0 /HPF (0.0-6.0)
== END 2022-01-18 00:01 | disposition home or self-care (01) ==
LOC: ED 16:23
DX: N13.30 Unspecified hydronephrosis (principal); R10.12 Left upper quadrant pain; D25.9 Leiomyoma of uterus, unspecified; Z91.040 Latex allergy status; Z88.0 Allergy status to penicillin; Z88.2 Allergy status to sulfonamides; I10 Essential (primary) hypertension
CPT/HCPCS: 36415; 74177; 80048; 80076; 81001; 82962; 83690; 85025; 96361; 96374; 96375; 99284; C9113; J2270; J2405; J3490; J7030; Q9967; Q0162

== ENCOUNTER 2022-04-14 15:55 | Emergency (ER) | payer MEDICARE ==
[2022-04-14 17:18] VITALS: BP 154/81
--- NOTE | 2022-04-14 20:28 | Emergency Department Report ---
ED General Adult HPI - General Chief complaint: Extremity Injury, Lower Stated complaint: RT TOE NAIL INFECTED Time Seen by Provider: 04/14/22 20:26 Source: patient Mode of arrival: Wheelchair Limitations: No Limitations - History of Present Illness Initial comments: Patient presents with complaints of right toe pain and swelling x1 week. She states history of recurrent issues with her right great toe and that she has been seeing her wood preserving plant laborer and a assistant sales center manager for this. She reports over the past week her toenail has begun to come off. She was prior diagnosed with a fungal infection of the toenail per patient. She denies any trauma to the toe or history of gout. No loss of sensation or difficulty moving the toe or fever/chills/sweats. Gabapentin is not helping with her pain patient Severity scale (0 -10): 8 - Related Data Home Medications Medication Instructions Recorded Confirmed Last Taken Ergocalciferol [Vitamin D2] 1 cap PO QWEEK 08/29/17 09/10/19 08/25/17 06:30 Gabapentin 300 mg PO TID 08/29/17 09/10/19 08/29/17 06:30 Insulin Aspart (Nf) [NovoLOG See Protocol SUB-Q TID 08/29/17 09/10/19 Unknown Flexpen] Insulin Glargine,Hum.rec.anlog 30 units SUB-Q DAILY 08/29/17 09/10/19 08/29/17 06:30 [Lantus Solostar] Leflunomide [Arava] 10 mg PO QDAY 08/29/17 09/10/19 08/28/17 13:45 Magnesium Oxide [Bennett] 500 mg PO BID 08/29/17 09/10/19 08/29/17 06:30 glipiZIDE [Glipizide] 10 mg PO DAILY 08/29/17 09/10/19 08/28/17 13:45 Previous Rx's Medication Instructions Recorded Last Taken Type Folic Acid 1 mg PO QDAY #30 capsule 11/02/16 08/29/17 13:45 Rx Oxybutynin [Ditropan] 5 mg PO BID #60 tablet 11/02/16 08/29/17 06:30 Rx Amlodipine Besylate [Norvasc] 10 mg PO QDAY #30 tablet 09/01/17 Unknown Rx Apixaban [Eliquis] 5 mg PO Q12HR #60 tablet 09/01/17 Unknown Rx HYDROcodone/APAP 5-325 [[place] 1 each PO Q6HR PRN #8 tablet 10/30/18 Unknown Rx 5-325 mg TAB] Ondansetron [Zofran Odt] 4 mg PO Q8HR PRN #10 tab.rapdis 03/10/19 Unknown Rx Apixaban [Eliquis] 5 mg PO Q12HR tablet 09/11/19 Unknown Rx Famotidine [Pepcid] 20 mg PO BID #60 tablet 09/11/19 Unknown Rx Insulin Degludec [Tresiba] 30 unit SQ QAM #5 pen 09/11/19 Unknown Rx amLODIPine 10 mg PO QDAY tablet 09/11/19 Unknown Rx Docusate Sodium [Colace] 100 mg PO BID PRN #14 capsule 12/03/19 Unknown Rx Ondansetron [Zofran Odt] 4 mg PO Q8HR PRN #14 tab.rapdis 12/03/19 Unknown Rx Promethazine HCl [Phenergan SUPPOS] 25 mg RC Q8HR PRN #10 supp.rect 12/03/19 Unknown Rx Ondansetron [Zofran Odt] 4 mg PO Q8HR PRN #14 tab.rapdis 01/17/22 Unknown Rx Acetaminophen/Codeine [Tylenol 1 tab PO Q8H PRN #15 tab 04/14/22 Unknown Rx /Codeine # 3 tab] Doxycycline Monohydrate 100 mg PO BID 10 Days #20 tab 04/14/22 Unknown Rx Mupirocin [Bactroban 2% OINT] 1 applic TP TID 10 Days #1 tube 04/14/22 Unknown Rx traMADoL [Ultram 50 MG tab] 50 - 100 mg PO Q6HR PRN #15 tablet 04/14/22 Unknown Rx Allergies Allergy/AdvReac Type Severity Reaction Status Date / Time latex Allergy Rash Verified 12/03/19 08:10 Sulfa (Sulfonamide Allergy Unknown Verified 12/03/19 08:10 Antibiotics) Penicillins AdvReac Itching Verified 12/03/19 08:10 ED Review of Systems ROS: Stated complaint: RT TOE NAIL INFECTED Other details as noted in HPI Constitutional: denies: chills, fever, malaise Musculoskeletal: joint swelling, arthralgia Skin: denies: rash, change in color Neurological: denies: numbness ED Past Medical Hx - Past Medical History Previous Medical History?: Yes Hx Hypertension: Yes Hx Heart Attack/AMI: No Hx Congestive Heart Failure: No Hx Diabetes: Yes Hx GERD: Yes (2010) Hx Renal Disease: No Hx Arthritis: Yes Hx Headaches / Migraines: Yes Hx Asthma: No Hx COPD: No Additional medical history: lupus, compressed disc, hyperthyroidism, rheumatoid arthritis, DVT/PE - Surgical History Past Surgical History?: Yes Hx Coronary Stent: Yes Hx Pacemaker: No Hx Internal Defibrillator: No Additional Surgical History: ectopic , D&C x 3. - Social History Smoking Status: Never Smoker Substance Use Type: None - Medications Home Medications: Home Medications Medication Instructions Recorded Confirmed Last Taken Type Folic Acid 1 mg PO QDAY #30 capsule 11/02/16 09/10/19 08/29/17 13:45 Rx Oxybutynin [Ditropan] 5 mg PO BID #60 tablet 11/02/16 09/10/19 08/29/17 06:30 Rx Ergocalciferol [Vitamin D2] 1 cap PO QWEEK 08/29/17 09/10/19 08/25/17 06:30 History Gabapentin 300 mg PO TID 08/29/17 09/10/19 08/29/17 06:30 History Insulin Aspart (Nf) [NovoLOG See Protocol SUB-Q TID 08/29/17 09/10/19 Unknown History Flexpen] Insulin Glargine,Hum.rec.anlog 30 units SUB-Q DAILY 08/29/17 09/10/19 08/29/17 06:30 History [Lantus Solostar] Leflunomide [Arava] 10 mg PO QDAY 08/29/17 09/10/19 08/28/17 13:45 History Magnesium Oxide [Bennett] 500 mg PO BID 08/29/17 09/10/19 08/29/17 06:30 History glipiZIDE [Glipizide] 10 mg PO DAILY 08/29/17 09/10/19 08/28/17 13:45 History Amlodipine Besylate [Norvasc] 10 mg PO QDAY #30 tablet 09/01/17 09/10/19 Unknown Rx Apixaban [Eliquis] 5 mg PO Q12HR #60 tablet 09/01/17 09/10/19 Unknown Rx HYDROcodone/APAP 5-325 [[place] 1 each PO Q6HR PRN #8 tablet 10/30/18 09/10/19 Unknown Rx 5-325 mg TAB] Ondansetron [Zofran Odt] 4 mg PO Q8HR PRN #10 tab.rapdis 03/10/19 09/10/19 Unknown Rx Apixaban [Eliquis] 5 mg PO Q12HR tablet 09/11/19 Unknown Rx Famotidine [Pepcid] 20 mg PO BID #60 tablet 09/11/19 Unknown Rx Insulin Degludec [Tresiba] 30 unit SQ QAM #5 pen 09/11/19 Unknown Rx amLODIPine 10 mg PO QDAY tablet 09/11/19 Unknown Rx Docusate Sodium [Colace] 100 mg PO BID PRN #14 capsule 12/03/19 Unknown Rx Ondansetron [Zofran Odt] 4 mg PO Q8HR PRN #14 tab.rapdis 12/03/19 Unknown Rx Promethazine HCl [Phenergan SUPPOS] 25 mg RC Q8HR PRN #10 supp.rect 12/03/19 Unknown Rx Ondansetron [Zofran Odt] 4 mg PO Q8HR PRN #14 tab.rapdis 01/17/22 Unknown Rx Acetaminophen/Codeine [Tylenol 1 tab PO Q8H PRN #15 tab 04/14/22 Unknown Rx /Codeine # 3 tab] Doxycycline Monohydrate 100 mg PO BID 10 Days #20 tab 04/14/22 Unknown Rx Mupirocin [Bactroban 2% OINT] 1 applic TP TID 10 Days #1 tube 04/14/22 Unknown Rx traMADoL [Ultram 50 MG tab] 50 - 100 mg PO Q6HR PRN #15 tablet 04/14/22 Unknown Rx ED Physical Exam - General Limitations: No Limitations General appearance: alert, in no apparent distress - Head Head exam: Present: atraumatic, normocephalic - Eye Eye exam: Present: normal appearance - Extremities Exam Extremities exam: Present: other (Mild swelling of the right great toe is noted without erythema or drainage; toenail partially avulsed from nail bed with dried blood noted; there is significant tenderness to palpation) - Neurological Exam Neurological exam: Present: alert, oriented X3, other (Patient ambulates via motorized wheelchair) - Psychiatric Psychiatric exam: Present: normal affect, normal mood - Skin Skin exam: Present: warm (M), dry, intact, normal color. Absent: rash ED Course Vital Signs 04/14/22 17:17 Temperature 98.3 F Pulse Rate 97 H Respiratory 20 Rate Blood Pressure 154/81 [Right] O2 Sat by Pulse 99 Oximetry - Procedure Description Procedures done: Area cleaned with Betadine. Sterile drape applied. 8 cc of lidocaine 2% was used to perform digital block of the right great toe. Toenail removed using forceps. Bacitracin ointment applied with sterile gauze. Mild bleeding occurred. Patient tolerated procedure well without any immediate complications ED Medical Decision Making - Radiology Data Radiology results: report reviewed - Medical Decision Making Patient presents with complaints of right toe pain and swelling x1 week. She states history of recurrent issues with her right great toe and that she has been seeing her wood preserving plant laborer and a assistant sales center manager for this. She reports over the past week her toenail has begun to come off. She was prior diagnosed with a fungal infection of the toenail per patient. She denies any trauma to the toe or history of gout. No loss of sensation or difficulty moving the toe or fever/chills/sweats. Gabapentin is not helping with her pain patient X-ray is negative for any acute bony abnormalities. Toenail removed. Patient t olerated procedure well without any immediate complications. Discussed importance of follow-up with podiatry within 3 to 5 days, referral provided. She is otherwise well-appearing, her vitals are normal, she is stable for discharge home. Strict return precautions in wound care instructions were provided to patient and she verbalizes understanding Critical care attestation.: If time is entered above; I have spent that time in minutes in the direct care of this critically ill patient, excluding procedure time. ED Disposition Clinical Impression: Toenail avulsion Disposition: 01 HOME / SELF CARE / HOMELESS Is pt being admited?: No Condition: Stable Instructions: Fingernail or Toenail Removal, Adult, Care After, Wound Care, Adult Prescriptions: Mupirocin [Bactroban 2% OINT] 1 applic TP TID 10 Days #1 tube Doxycycline Monohydrate 100 mg PO BID 10 Days #20 tab Acetaminophen/Codeine [Tylenol /Codeine # 3 tab] 1 tab PO Q8H PRN #15 tab PRN Reason: Pain , Severe (7-10) traMADoL [Ultram 50 MG tab] 50 - 100 mg PO Q6HR PRN #15 tablet PRN Reason: Pain Referrals: ANGELITO VASQUEZ MD [Staff Physician] - 3-5 Days
--- NOTE | 2022-04-14 21:28 | XRay Report ---
RIGHT TOE(S) 3 VIEW(S) INDICATION / CLINICAL INFORMATION: swelling, pain, diabetic COMPARISON: None available. FINDINGS: BONES / JOINT(S): No acute fracture or subluxation. No acute cortical destruction is seen at the grea t toe. Osteoarthrosis changes are noted. No soft tissue gas is seen. SOFT TISSUES: No significant abnormality. ADDITIONAL FINDINGS: None. IMPRESSION: 1. No radiographic evidence of osteomyelitis in the great toe. Signer Name: Nacho Winkler MD Signed: 04/14/2022 9:23 PM Workstation Name: [id number]
[2022-04-14] MEDS ORDERED: LIDOCAINE (1%) 10 MG/1 ML VIAL 20 ML MDV INFILTRATI ONE (21:43)
[2022-04-14] MEDS ORDERED: NEOMY 3.5 MG/BACIT 400 UNITS/POLY B 5000 UNITS/GM OINT PACKET TP STA (21:44)
[2022-04-14] MEDS ORDERED: HYDROcodone/ACETAMINOPHEN 5-325 MG TAB PO ONE (21:57)
[2022-04-14] MEDS ORDERED: LIDOCAINE (2%) 20 MG/1 ML VIAL 20 ML MDV INFILTRATI ONE (22:07)
== END 2022-04-15 07:18 | disposition home or self-care (01) ==
LOC: ED 15:55
DX: S91.201A Unspecified open wound of right great toe with damage to nail, initial encounter (principal); I10 Essential (primary) hypertension; E11.9 Type 2 diabetes mellitus without complications; M19.90 Unspecified osteoarthritis, unspecified site; K21.9 Gastro-esophageal reflux disease without esophagitis; G43.909 Migraine, unspecified, not intractable, without status migrainosus; Z98.890 Other specified postprocedural states; Z88.1 Allergy status to other antibiotic agents; Z91.040 Latex allergy status; Z91.09 Other allergy status, other than to drugs and biological substances; Z79.899 Other long term (current) drug therapy; X58.XXXA Exposure to other specified factors, initial encounter; Y93.89 Activity, other specified; Y92.89 Other specified places as the place of occurrence of the external cause; Y99.8 Other external cause status
CPT/HCPCS: 11730; 73660; 99283; J3490